=== PATIENT | female | born 1970 | race Caucasian/White ===

== ENCOUNTER 2017-10-03 11:54 | Emergency (ER) | payer BC, SELFPAY ==
[2017-10-03 12:42] VITALS: BP 146/90; PULSE 88; RESP 18; TEMP 37.1; O2SAT 94; BMI 34.0
--- NOTE | 2017-10-03 12:53 | HMH.EDUTC ---
[facility] [place] Disposition Clinical Impression: Upper respiratory infection Qualifiers: URI type: unspecified URI Qualified Code(s): J06.9 - Acute upper respiratory infection, unspecified Disposition: Home, Self-Care Condition on Discharge: Good Instructions: DI for Sinus Headache, Sinus Headache, Cough, DI for Headache, DI for Ear Pain-Adult Additional Instructions: * Monitor Temp. Tylenol and/or Ibuprofen as needed. ER if fever is no less than 101 despite alternating Tylenol and Ibuprofen * Encourage fluids, water, Gatorade, powerade, pedialyte if infant/toddler/or child * Warm salt water gargles for throat irritation *Warm fluids *Sore throat lozenges *Sleep elevated *humidifier or vaporizer Lots of rest Increase fluids, water, Gatorade, powerade *Over the counter Motrin or Tylenol as needed for sinus headache REturn if needed Follow up IMMEDIATELY for new or worsening of symptoms OR no noticeable improvement over the next 48-72 hours. 911 immediately for any life threatening symptoms such as chest pain or difficulty breathing Follow up with family doctor Time of Disposition: 12:59 Medical Decision Making Vital Signs: 10/03/17 12:42 Temperature 98.8 F Temperature Source Temporal Artery Scan Pulse Rate [Left Radial] 88 Respiratory Rate 18 Blood Pressure [Right Arm] 146/90 Blood Pressure Mean [Right Arm] 108 Blood Pressure Source [Right Arm] Automatic Cuff Blood Pressure Position [Right Arm] Sitting 02 Sat by Pulse Oximetry 94 L Oxygen Delivery Method Room Air - [place] Inquiry Pt receiving controlled substance: No [place] was queried for this patient: No [facility] [place] HPI - General Stated complaint: R side of head pain, no ao Mode of Arrival: Ambulatory Source of Information: Patient Limitations: No Limitations Description of Symptoms (Recalled from Triage Doc. by RN): C/O RT EAR AND GOMEZ X2 DAYS ALONG WITH COUGH, CONGESTION, AND CHILLS HEENT Symptoms (Recalled from RN notes): Yes (RT EAR AND GOMEZ) Resp Symptoms (Recalled from RN notes): Yes (COUGH, CONGESTION) Skin Symptoms (Recalled from RN notes): No MS Symptoms (Recalled from RN notes): No Functional Status (Recalled from RN notes): N/A - History of Present Illness Provider Complaint: Patient states that she thinks she may have a URI State that she has been having a headache on the right side and feels like the pain is in her ear and state that she has tenderness in her sinus on the right side State that she feels like it is stopped up. - Related Data Home Medications Medication Instructions Recorded Confirmed Buspirone HCl [Buspar 10mg tablet] 10 mg PO DAILY 10/03/17 10/03/17 Gabapentin [Gabapentin 800mg Tab] 800 mg PO DAILY 10/03/17 10/03/17 Omeprazole [Omeprazole 20mg Tab] 20 mg PO DAILY 10/03/17 10/03/17 Oxycodone HCl/Acetaminophen 10 mg PO Q8HP PRN 10/03/17 10/03/17 [Percocet 10-325 mg Tab] Promethazine HCl [Phenergan 25mg 25 mg PO Q8HP PRN 10/03/17 10/03/17 tab] Sertraline HCl [Zoloft] 100 mg PO DAILY 10/03/17 10/03/17 Allergies Allergy/AdvReac Type Severity Reaction Status Date / Time codeine [CODEINE] Allergy Unknown Unverified 09/11/17 14:51 - Worker's Comp Is this a Worker's Comp case?: No [facility] History I have reviewed the patient's past medical history: Yes Medical History: Reports:: Diabetes Mellitus Type 2 - *Social History Smoking Status: Current every day smoker Tobacco Type: cigarettes Alcohol Intake: never - Psychiatric History Expresses thoughts of harming self/others: None Suicide Plan Description: No Plan ROS Obtained: Yes All systems reviewed & no additional complaints - Constitutional Constitutional: Reports headache(s) - ENT Ears, Nose, Mouth, and Throat: Reports nasal congestion - Respiratory Respiratory: Yes cough Physical Exam - General General appearance: alert, in no apparent distress - Eye Eye exam: Present: normal appearance, PERRL, EOMI - Expanded ENT Exam Nose exam: Pres
--- NOTE | 2017-10-03 12:56 | ED_ITS ---
[facility] [place] Clinical Impression: Upper respiratory infection Qualifiers: URI type: unspecified URI Qualified Code(s): J06.9 - Acute upper respiratory infection, unspecified Disposition: Home, Self-Care Condition on Discharge: Good Instructions: DI for Sinus Headache, Sinus Headache, Cough, DI for Headache, DI for Ear Pain-Adult Additional Instructions: * Monitor Temp. Tylenol and/or Ibuprofen as needed. ER if fever is no less than 101 despite alternating Tylenol and Ibuprofen * Encourage fluids, water, Gatorade, powerade, pedialyte if infant/toddler/or child * Warm salt water gargles for throat irritation *Warm fluids *Sore throat lozenges *Sleep elevated *humidifier or vaporizer Lots of rest Increase fluids, water, Gatorade, powerade *Over the counter Motrin or Tylenol as needed for sinus headache REturn if needed Follow up IMMEDIATELY for new or worsening of symptoms OR no noticeable improvement over the next 48-72 hours. 911 immediately for any life threatening symptoms such as chest pain or difficulty breathing Follow up with family doctor Time of Disposition: 12:59 Medical Decision Making Vital Signs: 10/03/17 12:42 Temperature 98.8 F Temperature Source Temporal Artery Scan Pulse Rate [Left Radial] 88 Respiratory Rate 18 Blood Pressure [Right Arm] 146/90 Blood Pressure Mean [Right Arm] 108 Blood Pressure Source [Right Arm] Automatic Cuff Blood Pressure Position [Right Arm] Sitting 02 Sat by Pulse Oximetry 94 L Oxygen Delivery Method Room Air - [place] Inquiry Pt receiving controlled substance: No [place] was queried for this patient: No [facility] [place] - General Stated complaint: R side of head pain, no ao Mode of Arrival: Ambulatory Source of Information: Patient Limitations: No Limitations Description of Symptoms (Recalled from Triage Doc. by RN): C/O RT EAR AND GOMEZ X2 DAYS ALONG WITH COUGH, CONGESTION, AND CHILLS HEENT Symptoms (Recalled from RN notes): Yes (RT EAR AND GOMEZ) Resp Symptoms (Recalled from RN notes): Yes (COUGH, CONGESTION) Skin Symptoms (Recalled from RN notes): No MS Symptoms (Recalled from RN notes): No Functional Status (Recalled from RN notes): N/A - History of Present Illness Provider Complaint: Patient states that she thinks she may have a URI State that she has been having a headache on the right side and feels like the pain is in her ear and state that she has tenderness in her sinus on the right side State that she feels like it is stopped up. - Related Data Home Medications Medication Instructions Recorded Confirmed Buspirone HCl [Buspar 10mg tablet] 10 mg PO DAILY 10/03/17 10/03/17 Gabapentin [Gabapentin 800mg Tab] 800 mg PO DAILY 10/03/17 10/03/17 Omeprazole [Omeprazole 20mg Tab] 20 mg PO DAILY 10/03/17 10/03/17 Oxycodone HCl/Acetaminophen 10 mg PO Q8HP PRN 10/03/17 10/03/17 [Percocet 10-325 mg Tab] Promethazine HCl [Phenergan 25mg 25 mg PO Q8HP PRN 10/03/17 10/03/17 tab] Sertraline HCl [Zoloft] 100 mg PO DAILY 10/03/17 10/03/17 Allergies Allergy/AdvReac Type Severity Reaction Status Date / Time codeine [CODEINE] Allergy Unknown Unverified 09/11/17 14:51 - Worker's Comp Is this a Worker's Comp case?: No [facility] History I have reviewed the patient's past medical history: Yes Medical History: Reports:: Diabetes Mellitus Type 2 - *Social History
[2017-10-03 13:02] LABS: UTC Influenza A Antigen Negative (Negative); UTC Influenza B Antigen Negative (Negative)
== END 2017-10-03 13:07 | disposition home or self-care (01) ==
PROVIDERS: Emergency Provider Nurse Practitioner; Family Provider Family Medicine
DX: J06.9 Acute upper respiratory infection, unspecified (principal); Z88.6 Allergy status to analgesic agent; F17.210 Nicotine dependence, cigarettes, uncomplicated
CPT/HCPCS: 87804; 96372; 99202

== ENCOUNTER 2023-12-17 16:29 | Emergency (ER) | payer BC, SELFPAY ==
[2023-12-17 17:15] VITALS: BP 122/96; PULSE 90; RESP 19; TEMP 36.6; O2SAT 97; BMI 32.4
--- NOTE | 2023-12-17 17:36 | EXP.UTC ---
Discharge Plan Disposition Patient Disposition: Home, Self-Care Condition: Good Prescriptions Prescriptions: No Action sertraline [Zoloft] 100 MG Tablet 100 mg PO DAILY oxycodone-acetaminophen [Percocet] 1 EACH Tablet 10 mg PO Q8HP PRN (Reason: PAIN) gabapentin 800 MG Tablet 800 mg PO DAILY buspirone 10 MG Tablet 10 mg PO DAILY promethazine 25 MG Tablet 25 mg PO Q8HP PRN (Reason: Nausea And Vomiting) omeprazole 20 MG Tablet.Dr 20 mg PO DAILY Referrals Follow up/Referrals: Marshal Crespo [Primary Care Provider] - See instructions Activity Restrictions/Add. Instructions Additional Instructions/Restrictions: *Monitor Temp, Over the counter Motrin or Tylenol as directed/as needed Tylenol every 4 hours and Motrin every 6 hours (as long as your family doctor has told you that you can take it) for fever or pain. and straight to ER if unable to lower temp less than 101.0 after medication given *Warm salt water gargles may help to soothe the throat *Throat Lozenges? *Warm fluids like tea with honey may help to soothe the throat? *Sleep elevated *Humidifier/Vaporizer Follow up IMMEDIATELY for new or worsening symptoms or no Noticeable improvement over the next 48-72 hours. 911 for difficulty breathing or swallowing You were tested for today for COVID19 your test result should be back in the next 24hours, you may check your results on the [facility] Portal if your COVID/Flu positive you may return to work when fever free for 24hrs without taking any medication Clinical Impressions Clinical Impression: Exposure to COVID-19 virus Instructions Patient Instructions: DI for Nasal Congestion, DI for COVID-19 (Suspected or Confirmed ) Discharge ED Provider: Tana Adam [facility] HPI General Stated complaint: Cough,runny nose,GOMEZ Mode of Arrival: Ambulatory Source of Information: Patient Limitations: No Limitations Time Seen by Provider: 12/17/23 17:36 Description of Symptoms (Recalled from Triage Doc. by RN): PATIENT C/O COUGH, HEADACHE AND RUNNY NOSE. EXPOSED TO COVID HEENT Symptoms (Recalled from RN notes): Yes Resp Symptoms (Recalled from RN notes): Yes Skin Symptoms (Recalled from RN notes): No MS Symptoms (Recalled from RN notes): No Functional Status (Recalled from RN notes): WNL History of Present Illness Provider Complaint: Patient states that she was recently around family member that has tested positive for COVID States that she is now having cough and runny nose wants to get tested for COVID Related Data Home Medications Medication Instructions Recorded Confirmed buspirone 10 mg tablet 10 mg PO DAILY Anxiety 10/03/17 04/15/19 gabapentin 800 mg tablet 800 mg PO DAILY Diabetes 10/03/17 04/15/19 omeprazole 20 mg tablet,delayed 20 mg PO DAILY GERD 10/03/17 04/15/19 release oxycodone-acetaminophen 10 mg-325 10 mg PO Q8HP PRN PAIN 10/03/17 04/15/19 mg tablet (Percocet) promethazine 25 mg tablet 25 mg PO Q8HP PRN Nausea And 10/03/17 04/15/19 Vomiting sertraline 100 mg tablet (Zoloft) 100 mg PO DAILY Depression 10/03/17 04/15/19 Allergies Allergy/AdvReac Type Severity Reaction Status Date / Time codeine [CODEINE] Allergy Unknown Verified 10/25/18 21:52 Worker's Comp Is this a Worker's Comp case?: No [facility] Disclaimer: The information contained in this section may have been updated after the patient was seen, as this information can be updated by other users. Social History Smoking Status: Current every day smoker tobacco type: cigarettes alcohol intake: never current occupational status: employed Travel in the last 8 weeks: None ROS Obtained: Yes All systems reviewed & no additional complaints except as documented and Yes Systems reviewed as appropriate & no additional complaints except as documented Constitutional Constitutional: Reports system reviewed and no additional complaints, except as documented, Reports as per HPI and Reports body ache ENT Ears, Nose, Mouth, and Throat: Reports system reviewed and no additional complaints, except as documented, Reports as per HPI, Reports nasal congestion and Reports nasal discharge Cardiovascular Cardiovascular: Reports system reviewed and no additional complaints, except as documented, Reports as per HPI and Denies chest pain Respiratory Respiratory: Reports system reviewed and no additional complaints, except as documented, Reports as per HPI, Denies shortness of breath and Reports cough Gastrointestinal Gastrointestingal: Reports system reviewed and no additional complaints, except as documented and as per HPI Physical Exam General General appearance: alert and in no apparent distress ENT ENT exam: Present normal exam, normal oropharynx, mucous membranes moist and TM's normal bilaterally Respiratory Respiratory exam: Present normal lung sounds bilaterally; Absent respiratory distress or wheezes Cardiovascular Cardiovascular exam: Present regular rate, normal rhythm and normal heart sounds Neurological Exam Neurological exam: Present alert, oriented X3 and normal gait Medical Decision Making [place] Inquiry Pt receiving controlled substance: No [place] was queried for this patient: No Vital Signs: 12/17/23 17:15 Temperature 97.9 F Temperature Source Oral Pulse Rate [Right Brachial] 90 Respiratory Rate 19 Blood Pressure [Right Arm] 125/100 H Blood Pressure Mean [Right Arm] 108 Blood Pressure Source [Right Arm] Automatic Cuff Blood Pressure Position [Right Arm] Sitting 02 Sat by Pulse Oximetry 97 Oxygen Delivery Method Room Air Orders (Tests/Meds): ORDERS Category Date Time Status Covid-19 Nasal PCR ([facility]) Routine Lab 12/17/23 17:08 Received
[2023-12-17 17:50] VITALS: BP 122/96; PULSE 90; RESP 19; TEMP 36.6; O2SAT 97
== END 2023-12-17 18:06 | disposition home or self-care (01) ==
PROVIDERS: Emergency Provider Nurse Practitioner; PCP Family Medicine
DX: R05.9 Cough, unspecified (principal); R09.81 Nasal congestion; F17.210 Nicotine dependence, cigarettes, uncomplicated; Z20.822 Contact with and (suspected) exposure to COVID-19
CPT/HCPCS: 87635; 99203; 99212; G0463

== ENCOUNTER 2024-02-15 22:45 | Emergency (ER) | payer BC, SELFPAY ==
[2024-02-15 22:48] VITALS: BP 157/93; PULSE 68; RESP 16; TEMP 36.7; O2SAT 100; BMI 30.7
--- NOTE | 2024-02-15 22:53 | ECG_ITS ---
APPROVED REPORT Exam: Resting ECG HR:76 bpm ECG Measurements Heart Rate 76 AXES DE 133 P 140 QRSd 102 QRS 190 QT 424 T 163 QTc 454 Conclusion SINUS RHYTHM ARM LEADS REVERSED [INVERTED P AND QRS IN I] NORMAL ECG Electronically signed by : MAGRARET RAMIREZ, 02/16/2024 04:13:49
--- NOTE | 2024-02-15 22:57 | XR_ITS ---
PROCEDURE INFORMATION: Exam: XR Chest Exam date and time: 02/15/2024 11:16 PM Age: 53 years old Clinical indication: Pain; Other: Chest discomfort TECHNIQUE: Imaging protocol: Radiologic exam of the chest. Views: 2 views. COMPARISON: CR HUMERLT XR humerus LT 10/25/2018 10:03 PM FINDINGS: Lungs: Right mid to lower lung calcified granuloma. No consolidation or edema. Pleural spaces: Normal. No pleural effusion. No pneumothorax. Heart/Mediastinum: Calcified mediastinal lymph node. No cardiomegaly. Bones/joints: Unremarkable. IMPRESSION: No acute findings.
[2024-02-15 23:02] LABS: Basophils % 0.4 % (0.1-2.0); Hemoglobin 13.3 g/dL (12.2-16.2); Lymphocytes # 3.9 K/mm3 (0.7-4.5); Lymphocytes % 45.8 % (10-50); Mean Corpuscular Hemoglobin 28.7 pg (27.0-31.2); Mean Corpuscular Volume 92.4 fl (81-99); Mean Platelet Volume 9.9 fl (7.4-10.4); Monocytes # 0.4 K/mm3 (0.1-1.0); Monocytes % 4.3 % (1.7-9.3); Neutrophils # 4.3 K/mm3 (1.8-7.8); Neutrophils % 49.5 % (37.0-80.0); Platelet Count 174 K/mm3 (142-424); Red Blood Count 4.66 M/mm3 (4.20-5.40); Red Cell Distribution Width 15.9 % (11.5-17.5); White Blood Count 8.6 K/mm3 (4.8-10.8)
[2024-02-15] MEDS: BELLADONNA ALKALOIDS 60 ML ML PO (23:02)
[2024-02-15 23:04] LABS: Chloride 104 mmol/L (98-107); Potassium 3.9 mmoL/L (3.5-5.1); Sodium 138 mmol/L (136-145)
[2024-02-15 23:06] LABS: Alanine Aminotransferase 25 U/L (12-78); Alkaline Phosphatase 93 U/L (38-126); Anion Gap 9.9 mEq/L (5-15); Aspartate Amino Transferase 39 U/L (14-36); Bilirubin,Total 0.3 mg/dl (0.2-1.3); Blood Urea Nitrogen 8 mg/dl (7-17); Carbon Dioxide 28 mmol/L (22.0-30.0); Creatinine Clearance Estimated 120 mL/min (50-200); Estimated Glomerular Filt Rate 76 ml/min (>60); GFR (African American) 92 ML/MIN (>60); Lipase 196 U/L (23-300)
[2024-02-15 23:07] LABS: Albumin Level 4.2 g/dl (3.5-5.0); Albumin/Globulin Ratio 1.3 (1.1-1.8); Calcium 9.7 mg/dl (8.4-10.2); Globulin 3.2 g/dL (1.3-3.2); Glucose 129 mg/dl (74-100); Total Protein,Serum 7.4 g/dl (6.3-8.2)
--- NOTE | 2024-02-15 23:15 | CT_ITS ---
PROCEDURE INFORMATION: Exam: CTA Chest With Contrast Exam date and time: 02/15/2024 11:34 PM Age: 53 years old Clinical indication: Pain; Chest pressure; Additional info: Cp to back TECHNIQUE: Imaging protocol: Computed tomographic angiography of the chest with contrast. Exam focused on the arteries. 3D rendering (Not supervised by radiologist): MIP and/or 3D reconstructed images were created by the technologist. Radiation optimization: All CT scans at this facility use at least one of these dose optimization techniques: automated exposure control; mA and/or kV adjustment per patient size (includes targeted exams where dose is matched to clinical indication); or iterative reconstruction. Contrast material: ISOVUE; Contrast volume: 100 ml; Contrast route: INTRAVENOUS (IV); COMPARISON: CR XR CHEST 2V 02/15/2024 11:16 PM FINDINGS: Pulmonary arteries: Normal. No pulmonary emboli. Aorta: Mild atherosclerotic disease. No aortic aneurysm. No aortic dissection. Lungs: Bilateral upper lobe and bilateral lower lobe calcified granulomas. Mild bilateral dependent atelectasis. Pleural spaces: Unremarkable. No pneumothorax. No pleural effusion. Heart: Unremarkable. No cardiomegaly. No pericardial effusion. Lymph nodes: Large calcified AP window lymph node. Scattered smaller calcified mediastinal and bilateral hilar lymph nodes. No adenopathy. Gallbladder and bile ducts: Status post cholecystectomy. No significant biliary ductal dilitation. Spleen: Calcified granuloma in the spleen. Bones/joints: Unremarkable. No acute fracture. Soft tissues: Unremarkable. IMPRESSION: 1. No evidence of a pulmonary embolism. No thoracic aortic aneurysm or dissection. 2. No acute findings. 3. Prior granulomatous disease.
[2024-02-15 23:16] LABS: NT Pro Brain Natriuretic Pep. < 20.0 pg/mL (0-125)
--- NOTE | 2024-02-15 23:16 | [facility].EDCP ---
Discharge Plan Disposition Patient Disposition: Home, Self-Care Chief Complaint: Chest Pain Prescriptions Prescriptions: No Action sertraline [Zoloft] 100 MG Tablet 100 mg PO DAILY oxycodone-acetaminophen [Percocet] 1 EACH Tablet 10 mg PO Q8HP PRN (Reason: PAIN) gabapentin 800 MG Tablet 800 mg PO DAILY buspirone 10 MG Tablet 10 mg PO DAILY promethazine 25 MG Tablet 25 mg PO Q8HP PRN (Reason: Nausea And Vomiting) omeprazole 20 MG Tablet.Dr 20 mg PO DAILY Referrals Follow up/Referrals: Provider,MD Argelia [Primary Care Provider] - See instructions Melvin Horta MD [Staff Physician] - See instructions Activity Restrictions/Add. Instructions Additional Instructions/Restrictions: At this time it was felt you are safe to be discharged home. If new or worsening symptoms please do not hesitate to return the emergency department. Please call and schedule an appointment with Dr. Horta as soon as you are able. Clinical Impressions Clinical Impression: Chest pain Discharge ED Provider: Froy Reyna [facility] General Chief Complaint: Chest Pain Stated Complaint: cp Time Seen by Provider: 02/15/24 23:10 Mode of Arrival: Family Vehicle Source of Information: Patient Limitations: No Limitations Description of Symptoms (Recalled from ER Triage Doc. by RN): chest discomfort that was present when she woke up. states it increases with the act of breathing. patient states she had this once before, received medication here at the hospital and it improved. patients discomfort. patient denies dyspnea, states she thought it was just indigestion. no diaphoresis. slightly nauseated, denies diarrhea and vomiting. History of Present Illness HPI narrative: Patient is a 53-year-old female past medical history of COPD not on home oxygen, no prior cardiac history presents emergency department for evaluation of chest pain. Onset was acute, occurring this morning, persistent, substernal. There is associated midline thoracolumbar back pain. It is not particularly modifiable. She does have a history of degenerative disc disease and is unsure why her back is hurting however it is worse than it particularly is. No abdominal pain. No cough. No other acute complaints at this time. Related Data Home Medications Medication Instructions Recorded Confirmed buspirone 10 mg tablet 10 mg PO DAILY Anxiety 10/03/17 04/15/19 gabapentin 800 mg tablet 800 mg PO DAILY Diabetes 10/03/17 04/15/19 omeprazole 20 mg tablet,delayed 20 mg PO DAILY GERD 10/03/17 04/15/19 release oxycodone-acetaminophen 10 mg-325 10 mg PO Q8HP PRN PAIN 10/03/17 04/15/19 mg tablet (Percocet) promethazine 25 mg tablet 25 mg PO Q8HP PRN Nausea And 10/03/17 04/15/19 Vomiting sertraline 100 mg tablet (Zoloft) 100 mg PO DAILY Depression 10/03/17 04/15/19 Allergies Allergy/AdvReac Type Severity Reaction Status Date / Time codeine [CODEINE] Allergy Unknown Verified 10/25/18 21:52 [facility] Disclaimer: The information contained in this section may have been updated after the patient was seen, as this information can be updated by other users. Social History Smoking Status: Unknown if ever smoked alcohol intake: never current occupational status: employed Travel in the last 8 weeks: None ROS Obtained: Yes Systems reviewed as appropriate & no additional complaints except as documented Physical Exam General General appearance: alert and in no apparent distress Head Head exam: atraumatic and normocephalic Eye Eye exam: Present PERRL and EOMI ENT ENT exam: Present mucous membranes moist Neck Neck exam: Present normal inspection Chest Chest inspection: Present normal inspection and symmetric chest wall rise Respiratory Respiratory exam: Present normal lung sounds bilaterally; Absent respiratory distress Cardiovascular Cardiovascular exam: Present regular rate and normal rhythm Abdominal Exam Abdominal exam: Present soft; Absent tenderness Extremities Exam Extremities exam: Present normal inspection Neurological Exam Neurological exam: Present alert Psychiatric Psychiatric exam: Present normal affect Skin Skin exam: Present warm and dry HEART Score HEART Score HEART Score assessment performed?: Yes History (anamnesis): Slightly suspicious ECG: Normal Age: 45-65 years Risk factors: 1-2 risk factors Troponin: </= normal limit HEART Score: 2 Critical Care Critical Care Time Critical Care Time: No Medical Decision Making [place] Inquiry Pt receiving controlled substance: No Vital Signs Vital Signs: 02/15/24 22:48 02/16/24 01:42 02/16/24 01:47 Temperature 98.0 F 98 F Temperature Source Oral Oral Pulse Rate 63 80 Pulse Rate [Right Brachial] 68 Respiratory Rate 16 16 Blood Pressure 129/97 H 129/97 H Blood Pressure [Right Arm] 157/93 H Blood Pressure Mean 106 Blood Pressure Mean [Right Arm] 114 Blood Pressure Source [Right Arm] Automatic Cuff Blood Pressure Position Supine Blood Pressure Position [Right Arm] Sitting 02 Sat by Pulse Oximetry 100 98 96 Oxygen Delivery Method Room Air Room Air Room Air Lab Data Labs: Lab Results 02/15/24 22:47: WBC 8.6, RBC 4.66, Hgb 13.3, Hct 43.0, MCV 92.4, MCH 28.7, MCHC 31.0 L, RDW 15.9, Plt Count 174, MPV 9.9, Neut % (Auto) 49.5, Lymph % (Auto) 45.8, [place] % (Auto) 4.3, Eos % (Auto) 0.0 L, Baso % (Auto) 0.4, Neut # (Auto) 4.3, Lymph # (Auto) 3.9, [place] # (Auto) 0.4, Eos # (Auto) 0.0, Baso # (Auto) 0.0, Sodium 138, Potassium 3.9, Chloride 104, Carbon Dioxide 28, Anion Gap 9.9, BUN 8, Creatinine 0.80, Estimated Creat Clear 120, Estimated GFR 76, Est GFR ( Amer) 92, Glucose 129 H, Calcium 9.7, Total Bilirubin 0.3, AST 39 H, ALT 25, Alkaline Phosphatase 93, Troponin I < 0.01, NT-Pro-B Natriuret Pep < 20.0, Total Protein 7.4, Albumin 4.2, Globulin 3.2, Albumin/Globulin Ratio 1.3, Lipase 196 02/16/24 00:25: Troponin I < 0.01 02/15/24 22:47 02/15/24 22:47 Response Orders (Tests/Meds): ED MEDICATIONS Generic Name Dose Route Start Last Admin Trade Name Freq PRN Reason Stop Dose Admin Sodium Chloride 10 ml 02/15/24 23:44 02/15/24 23:44 Sodium Chloride 0.9% 10ml Syr (Rad Only) IV 03/16/24 23:43 10 ml NEEDED PRN Administration Maintain IV Site Discontinued Medications Generic Name Dose Route Start Last Admin Trade Name Freq PRN Reason Stop Dose Admin Acetaminophen 1,000 mg 02/16/24 00:35 02/16/24 00:58 Acetaminophen 1,000mg/100ml Vial IV 02/16/24 00:36 1,000 mg ONCE ONE Administration Aspirin 324 mg 02/16/24 00:35 02/16/24 00:58 Aspirin 81mg Chewable Tablet PO 02/16/24 00:36 324 mg ONCE ONE Administration Belladonna Alkaloids 60 ml 02/15/24 22:59 02/15/24 23:02 Belladonna Alkaloids 60 Ml Ml PO 02/15/24 23:00 60 ml ONCE ONE Administration Iopamidol 100 ml 02/15/24 23:44 02/15/24 23:44 Iopamidol-370 (76%);100ml Bottle IV 02/15/24 23:45 100 ml ONCE ONE Administration Sodium Chloride 50 ml 02/15/24 23:44 02/15/24 23:44 0.9 % Sodium Chloride 50 Ml Vial IV 02/15/24 23:45 50 ml ONCE ONE Administration ORDERS Category Date Time Status CT angio chest - dissection Stat Cat Scan 02/15/24 23:15 Completed XR chest 2V Stat Exams 02/15/24 22:57 Completed Complete Blood Count Auto Diff Stat Lab 02/15/24 22:47 Completed Comprehensive Metabolic Panel Stat Lab 02/15/24 22:47 Completed Lipase Stat Lab 02/15/24 22:47 Completed NT Pro Brain Natriuretic Pep. Stat Lab 02/15/24 22:47 Completed Troponin I Q3H Lab 02/16/24 00:25 Completed Troponin I Q3H Lab 02/16/24 05:00 Ordered Troponin I Stat Lab 02/15/24 22:47 Completed ECG Data Tracing #1: ECG Narrative: Independently interpreted by me, rate of 76, rhythm is regular, no ST elevation in anatomical contiguous leads, QTc 454 MDM Narrative Medical Decision Narrative: In summary patient is a 53-year-old female past medical history described above who presents emergency department for evaluation of chest pain. Patient is hemodynamically stable nontoxic-appearing upon arrival, afebrile. Differential diagnosis includes ACS, acid reflux, noncardiac chest pain, aortic dissection, among others. Workup will be conducted with hematologic labs, chest x-ray, EKG, troponin, CTA chest. Initial interventions include morphine, aspirin. Initial workup reviewed by me, hematologic labs are nonactionable. CTA chest shows no acute pathology, prior granulomatous disease. The patient was placed in observation status at 0100. Medical necessity for observational status is serial troponins. The patient was provided serial reevaluations and cardiac monitoring while awaiting results. Results of testing during observation remarkable for serial undetectably low troponins. Upon repeat evaluation patient continued to be well-appearing. Because of this I feel patient is appropriate for outpatient management at this time will be referred to Dr. Horta for continued evaluation. Total time in observation was 1 hour 27 minutes.
[2024-02-15 23:19] LABS: Troponin I < 0.01 ng/ml (0.00-0.034)
[2024-02-15] MEDS: IOPAMIDOL-370 (76%);100ML BOTTLE 100 ML IV (23:44)
[2024-02-15] MEDS: 0.9 % SODIUM CHLORIDE 50 ML VIAL IV (23:44)
[2024-02-15] MEDS: SODIUM CHLORIDE 0.9% 10ML SYR (RAD ONLY) 10 ML IV (23:44)
[2024-02-16] MEDS: ACETAMINOPHEN 1,000MG/100ML VIAL 1000 MG IV (00:58)
[2024-02-16] MEDS: ASPIRIN 81MG CHEWABLE TABLET 324 MG PO (00:58)
[2024-02-16 01:42] VITALS: BP 129/97; PULSE 63; O2SAT 98
[2024-02-16 01:47] VITALS: BP 129/97; PULSE 80; RESP 16; TEMP 36.6; O2SAT 96
[2024-02-16 01:51] LABS: Troponin I < 0.01 ng/ml (0.00-0.034)
[2024-02-16 02:51] VITALS: BP 142/80; PULSE 78; RESP 19; TEMP 36.8; O2SAT 98
== END 2024-02-16 02:51 | disposition home or self-care (01) ==
PROVIDERS: Emergency Provider Emergency Medicine
DX: R07.9 Chest pain, unspecified (principal); M54.6 Pain in thoracic spine
CPT/HCPCS: 36415; 71046; 71275; 80053; 83690; 83880; 84484; 85025; 93005; 96374; 99285; J0131; Q9967

== ENCOUNTER 2024-03-11 07:42 | Outpatient (CLI) | payer BC, SELFPAY ==
[2024-03-06 10:55] VITALS: BMI 38.7
--- NOTE | 2024-03-11 07:42 | CT_ITS ---
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 A noncontrast coronary calcium scan was performed. A CT attenuation threshold of 130 Hounsfield units (HU) was used for the detection of calcium in contiguous voxels of 1 sq mm in area to be counted as individual lesions. Bolus tracking in the ascending aorta with a threshold of 180 HU was performed. Immediately afterwards, ECG synchronized cardiac CT was then performed from the cardiac base to apex using retrospective gating with ECG tube current modulation. A total of 85 mL of Isovue 370 mg/mL contrast medium was administered at 5 mL/sec followed by a saline flush using a biphasic injection protocol. A tube voltage of 120 KVp was used. The patient received the following medications prior to the cardiac CT. 50 mg of oral metoprolol 15 mg of oral ivabradine 0.8 mg of sublingual nitroglycerin The average heart rate at the time of acquisition was 53 bpm and regular. Image Reconstruction Transaxial images were reconstructed at 0.67 mm slide thickness. Data was reviewed interactively on an advanced workstation capable of 2 and 3-dimensional displays in all conventional reconstruction formats, including multiplanar reformations, maximum intensity projections, curved multiplanar reformations, and volume rendered reconstructions. When applicable, selected routine images describing the relevant coronary anatomy and pathology were saved and sent to PACS. Complications None Technical Quality Overall image quality was good. Coronary artery opacification was adequate. Total DLP (Dose-Length Product) is 1356.1 mGy-cm. The reported value represents the total of one or more individual components during the CT acquisition of this date and at this time, and as such, the same value may appear in more than one CT report depending on the interpreting/reporting physicians. COMPARISON None FINDINGS CT Coronary Calcium Scoring LMA (Left Main Artery) = 101 LAD (Left Anterior Descending) = 0 LCX (Left Coronary Circumflex) = 0 RCA (Right Coronary Artery) = 5 Total Calcium Score = 106 using the AJ-130 method. The observed calcium score of 106 is at 98th percentile for subjects of the same age, sex, and race/ethnicity. The interpretation of the calcium heart score is based on the following continuum*: 0 = no calcified plaque detected (risk of coronary artery disease is very low ??? less than 5%) 1-10 = calcium detected in extremely minimal levels (risk of coronary diseases is still low ??? less than 10%) 11-100 = mild levels of plaque detected with certainty (mild or minimal narrowing of heart arteries is likely) 101-400 = definite,at least moderate levels of plaque detected (relatively high risk of a heart attack within 3-5 years) >401-999 = extensive levels of plaque detected (high risk of heart attack, high levels of vascular disease are present, high likelihood of at least one significant coronary narrowing) *The calcium heart score quantifies the burden of coronary calcification/plaque in the coronary arteries. The calcium heart score is not able to evaluate the presence or burden of non-calcified (i.e. soft) plaque. There is also incidental finding of calcification in the descending thoracic aorta. Coronary CT Angiography The coronary arterial system is right dominant. Quantitative Stenosis Grading: Left Main (LM): The left main originates normally from the left sinus of Valsalva. The LM trifurcates into the left anterior descending artery, ramus intermedius, and left circumflex artery. There is calcified plaque in the proxima and distal l LM segments, with < 25% luminal stenosis. Left Anterior Descending (LAD) and Diagonal Branches: The LAD gives off 2 diagonal branch(es). The LAD and its branches are patent with no evidence of atherosclerosis. There is a mid LAD myocardial bridge present, measuring 1 cm in length 0.2 cm in depth. Ramus-intermedius (RI): The RI is patent. Left Circumflex (LCX) and Obtuse Marginals (OM): The LCX gives off 1 Obtuse Marginal (OM) branch(es). The LCX and its branches are patent with no evidence of atherosclerosis. Right Coronary Artery (RCA): The RCA originates normally from the right sinus of Valsalva. The RCA gives off a posterior descending artery (PDA) and posterolateral (PL) branches. Minimal calcified plaque noted in the proximal RCA, with no evidence of luminal stenosis. Non-Coronary Cardiac Findings: Analysis of the left ventricular (LV) structure and function was performed after 3-D reconstruction of the LV from axial images, with user-corrected automatic contouring for assessment of LV volumes and user-defined reconstruction from oblique planes for measurement of 3-D cardiac structure and function. -The left ventricle systolic function is normal. -There is no left atrial appendage filling defect. Two right pulmonary veins and two left pulmonary veins drain normally into the left atrium. -No pericardial thickening or calcification. -Central and branch pulmonary arteries in the [id number] are unremarkable. -Thoracic aorta within the visualized thoracic aortic-branches in the [id number] is unremarkable. Extracardiac Structures No significant extra-cardiac findings. Note, however, that this study is focused on the cardiac findings. IMPRESSION -Presence of coronary calcification with an Agatston score = 106 using the AJ-130 method. -The observed calcium score of 106 is at 98th percentile for subjects of the same age, sex, and race/ethnicity. -Calcified plaque in the LM segment with < 25% luminal stenosis. No evidence of significant flow-limiting atherosclerosis of the coronary arteries. -CAD-RADS 1. Management recommendations per ACC/AHA guidelines*, as clinically appropriate. -Calcification of the descending thoracic aorta. -Incidental finding of calcified mediastinal lymphadenopathy. Referred to new or recent CT chest for mediastinal non-cardiac findings. *Recommendations: CAD RADS 0: Reassurance. Consider non-atherosclerotic causes of chest pain. CAD RADS 1: Consider non-atherosclerotic causes of chest pain. Consider preventive therapy and risk factor modification. CAD RADS 2: Consider non-atherosclerotic causes of chest pain. Consider preventive therapy and risk factor modification, particularly for patients with nonobstructive plaque in multiple segments. CAD RADS 3: Consider further functional testing. Consider symptom-guided anti-ischemic and preventive pharmacotherapy as well as risk factor modification per published guideline statements. CAD RADS 4A: Consider further functional testing or invasive coronary angiography with revascularization per published guideline statements. Consider symptom-guided anti-ischemic and preventive pharmacotherapy as well as risk factor modification per published guideline statements. CAD RADS 4B: Invasive coronary angiography recommended with revascularization per published guideline statements. Consider symptom-guided anti-ischemic and preventive pharmacotherapy as well as risk factor modification per published guideline statements. CAD RADS 5: Consider invasive angiography and/or viability assessment with revascularization per published guideline statements. Consider symptom-guided anti-ischemic and preventive pharmacotherapy as well as risk factor modification per published guideline statements. CRITICAL RESULT None COMMUNICATION Per this written report The coronary and cardiac findings of this CCTA were reviewed, reported, and signed by Nelson Saleem MD (Skatesman) Conclusion Electronically signed by : Kandice Saleem MD 03/12/2024 12:13:47
[2024-03-11 08:10] VITALS: BP 124/84; PULSE 74; RESP 16; TEMP 36.3; O2SAT 98; BMI 38.7
[2024-03-11] MEDS: METOPROLOL TARTRATE 50MG TABLET PO (08:16)
[2024-03-11] MEDS: IVABRADINE HCL 7.5MG TABLET PO (08:16)
[2024-03-11 09:17] VITALS: BP 136/85; PULSE 66; RESP 16; O2SAT 95
[2024-03-11] MEDS: NITROGLYCERIN 0.4MG SL TABLET SL (09:17)
[2024-03-11 09:20] VITALS: BP 140/91; PULSE 67; RESP 16; O2SAT 94
[2024-03-11 09:23] VITALS: BP 89/61; PULSE 61; RESP 16; O2SAT 93
[2024-03-11 09:26] VITALS: BP 123/64; PULSE 56; RESP 16; O2SAT 93
[2024-03-11] MEDS: IOPAMIDOL-370 (76%);100ML BOTTLE 85 ML IV (09:33)
[2024-03-11] MEDS: 0.9 % SODIUM CHLORIDE 50 ML VIAL IV (09:33)
[2024-03-11] MEDS: SODIUM CHLORIDE 0.9% 10ML SYR (RAD ONLY) 10 ML IV (09:33)
--- NOTE | 2024-03-11 09:33 | CA_ITS ---
APPROVED REPORT EXAM: Comprehensive 2D, Doppler, and color-flow Echocardiogram Sales Support Advisor: Waleska Rivera, RCS, RVS Ht: 5 ft 1 in Wt: 205lbs BSA: 1.91 BP: 125/90 mmHg Indications: Abn EKG, SOB, Cp, Smoker 2D Dimensions IVSd 1.23 cm F: 0.6-1.0 LVEF (Visual) 63.40 % PWd 1.00 cm F: 0.6 - 1.0 LA Volume 42.10 mL LVDd 4.69 cm F: 3.9 - 5.3 LA Volume Index 22.04 mL/m2 (M/F) 16-34 LVDs 3.08 cm F: 2.2 - 3.5 Left Atrium 3.20 cm F: 2.7 - 3.8 M-Mode Dimensions LA Diam 3.92 cm (1.9-4.0) LVDd 5.54 cm (3.5-5.7) LVDs 4.08 cm (3.5-5.7) IVSd 1.11 cm (0.6-1.1) PWd 0.95 cm (0.6-1.1) EF (Teich) 51.00% EPSs 0.25 cm FS 26.40% EDV (Teich) 149.90 mL TAPSE 1.22 (<1.7) ESV (Teich) 73.40 mL LV Diastology E Decel Time 240 (160-240 msec) E/A Ratio 1.17 MED A' 8.90 cm/s LAT A' 6.80 cm/s Aortic Valve PAUL Index 1.70 cm2/m2 AoV Peak Wm. 116.0 (50-130 cm/s) AO Peak GR. 5.40 mmHg AO Mean GR. 2.70 (<5 mmHg) AO VTI 26.4 (18-25 cm) PAUL (VTI) 3.33 (2.5-4.5 cm2) Mitral Valve MV A Velocity 70.0 (40-130 cm/s) E/A Ratio 1.17 Pulmonary Valve PV Peak Velocity 78.0 (50-150 cm/s) Tricuspid Valve TR P. Velocity 243.00 cm/s RAP Estimate 10.00 mmHg RVSP 33.60 mmHg Left Ventricle The left ventricle is normal size. The left ventricular systolic function is normal. The left ventricular ejection fraction is within the normal range. There is increased LV wall thickness. Proximal septal thickening is noted. There is normal LV segmental wall motion. The left ventricular diastolic function is normal. LVEF is 60%. Right Ventricle Right ventricle is mildly dilated. Right ventricle is mildly hypokinetic. Atria The left atrium size is normal. The right atrium size is normal. There is no Doppler evidence of interatrial shunt. Aortic Valve The aortic valve opens well. There is no aortic valvular stenosis. Trace aortic regurgitation. Mitral Valve The mitral valve is normal in structure. No evidence of mitral valve stenosis. Mild mitral regurgitation. Tricuspid Valve The tricuspid valve leaflets are thin and pliable. Mild tricuspid regurgitation. RVSP is 20-25 mmHg. Pulmonic Valve The pulmonary valve is normal in structure. Trace pulmonic regurgitation. Great Vessels The aortic root is normal in size. The ascending aorta is normal in size. IVC is normal in size and collapses >50% with inspiration. Pericardium There is no pericardial effusion. Other Information Study Quality: Fair Conclusion Normal LV systolic function. Mild RV dilation with mild reduction in RV function. Mild MR, mild TR. Electronically signed by : Kandice Saleem MD 03/13/2024 10:42:06
[2024-03-11 09:37] VITALS: BP 106/66; PULSE 65; RESP 16; O2SAT 93
== END 2024-03-11 23:59 | disposition home or self-care (01) ==
LOC: RAD 07:42
PROVIDERS: PCP Family Medicine; Visit Provider Internal Medicine
DX: R94.31 Abnormal electrocardiogram [ECG] [EKG] (principal); R07.9 Chest pain, unspecified; R06.00 Dyspnea, unspecified
CPT/HCPCS: 75574; 93306; Q9967

== ENCOUNTER 2024-04-10 09:32 | Outpatient (CLI) | payer BC, SELFPAY ==
--- NOTE | 2024-04-10 09:48 | MR_ITS ---
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 Software platform sequences were performed using the [employer] MR B19 platform. A set of three-plane, low-resolution, large vljct-oh-zmel localizers were initially acquired. Then axial, coronal, sagittal TrueFISP, as well as axial HASTE images, were obtained. These were followed by gated TrueFISP breathold cinematic sequences obtained in the short axis with 8 mm slices and 2 mm gaps, 2-chamber (vertical long axis), 3-chamber, 4-chamber (horizontal long axis). A bolus of contrast was injected intravenously with first-pass sequences obtained in the short axis and four-chamber planes. After approximately 10 minutes, a TI quality tech sequence was performed to determine the optimal TI time. Using the optimized TI time, delayed contrast enhancement segmented inversion???recovery TurboFLASH sequences were obtained in the short axis, 2-chamber, 3-chamber, and 4-chamber projections. 2D-velocity phase mapping was performed. Functional parameters were calculated by offline analysis on an independent workstation ([employer] Platform, [employer]). Contrast: ProHance??? (Gadoteridol) FINDINGS MORPHOLOGY AND FUNCTION Left ventricle: The left ventricle cavity is small. The indexed left ventricular end-diastolic volume (LVEDVi) is 54 ml/m2 (reference range 57-105 ml/m2 in males, 56-96 ml/m2 in females). Normal left ventricular systolic function is present. There is mild increase in left ventricular wall thickness. Maximum LV wall thickness 11.9 mm. There are no regional wall motion abnormalities noted. LVEF is calculated at 60.6% (reference range 57-77%). Right ventricle: The right ventricle is normal in size. The indexed right ventricular end-diastolic volume (RVEDVi) is 33 ml/m2 (reference range 31-121 ml/m2 in males, 30-112 ml/m2 in females). There is mild reduction in right ventricular systolic function. RVEF is calculated at 43.3% (reference range 52-72% in males, 51-71% in females). Atria: The left atrium is normal in size. The maximum indexed left atrial volume is 28 ml/m2 (reference range 26-52 ml/m2 in males, 27-53 ml/m2 in females). The right atrium is normal in size. The maximum indexed right atrial volume is 18 ml/m2 (reference range 18-90 ml/m2). Aorta: The diameter of the aortic annulus is normal, measuring 23 mm (coronal view reference range 21-30 mm in males, 19-27 mm in females). The diameter of the aortic sinus is normal, measuring 31 mm (coronal view reference range 25-42 mm in males, 24-36 mm in females). The diameter of the sinotubular junction is normal, measuring 27 mm (coronal view reference range 18-32 mm in males, 18-28 mm in females). The diameters of the ascending and descending thoracic aorta are normal. Main pulmonary artery: The main pulmonary artery diameter is normal. Pericardium: The pericardial thickness is normal. The pericardial thickness measures 2.3 mm (normal < 4.0 mm). There is no pericardial effusion. VALVES The valvular morphologies in the visualized sequences appear normal. There is no significant valvular stenosis or regurgitation of the mitral, aortic, tricuspid, or pulmonic valve noted visually. Systolic anterior motion of the mitral valve is not visualized. Ratio of pulmonary to systemic flow, Qp:Qs ratio, could not be performed in the study due to technical difficulty at the time of image acquisition. TISSUE CHARACTERIZATION Resting Perfusion: Normal myocardial blood flow at rest. No evidence of resting hypoperfusion. Myocardial Fibrosis and/or edema: Normal gadolinium kinetics are present. No evidence of late gadolinium enhancement is noted, consistent with absence of myocardial scarring, infarction, or necrosis. T2-weighted imaging demonstrates no evidence of myocardial edema or inflammation. OTHER No other significant findings are noted. However, this exam is focused on the cardiac structure and function. IMPRESSION Small LV cavity size with normal LV systolic function. LVEDVi= 54 ml/m2 and LVEF= 60.6%. Mild increase in LV wall thickness. Maximum LV wall thickness 11.9 mm Normal RV size with mild reduction in RV systolic function. RVEDVi= 33 ml/m2 and RVEF= 43.3%. No atrial enlargement. No CMR evidence of myocardial scarring, infarction, or necrosis. No evidence of myocardial edema or inflammation. Perfusion analysis demonstrates normal blood flow at rest with no evidence of resting hypoperfusion. Overall, this study does not meet CMR criteria for [facility]. Further evaluation, including pulmonary workup, for the mild reduction in RV systolic function is suggested. COMPARISON None CRITICAL RESULT None COMMUNICATION Per this written report The findings of this cardiac MR were reviewed, reported, and signed by Nelson Saleem MD (Lumite Injector). Conclusion Electronically signed by : Kandice Saleem MD 04/22/2024 13:16:02
[2024-04-10 10:58] LABS: Blood Urea Nitrogen 9 mg/dl (7-17); Estimated Glomerular Filt Rate 76 ml/min (>60); GFR (African American) 92 ML/MIN (>60)
[2024-04-10] MEDS: GADOTERIDOL INJ 20ML SYRINGE 20 ML IV (11:11)
[2024-04-10] MEDS: 0.9 % SODIUM CHLORIDE 50 ML VIAL 25 ML IV (11:11)
[2024-04-10] MEDS: SODIUM CHLORIDE 0.9% 10ML SYR (RAD ONLY) 10 ML IV (11:11)
== END 2024-04-10 23:59 | disposition home or self-care (01) ==
PROVIDERS: PCP Family Medicine; Visit Provider Internal Medicine
DX: I51.7 Cardiomegaly (principal); R42 Dizziness and giddiness; R07.9 Chest pain, unspecified; R94.31 Abnormal electrocardiogram [ECG] [EKG]; R06.00 Dyspnea, unspecified
CPT/HCPCS: 36415; 75561; 82565; 84520; A9576

== ENCOUNTER 2024-05-14 13:28 | Outpatient (CLI) | payer BC, SELFPAY ==
--- NOTE | 2024-05-14 13:28 | CA_ITS ---
APPROVED REPORT EXAM: Limited 2D Echocardiogram Advertisement Compositor: Lashawn Pickens RVT Ht: 5 ft 1 in Wt: 203lbs BSA: 1.90 BP: 121/85 mmHg Indications: RT VENTRICULAR DILATION,DECREASED LV FUNCTION,COPD,ESCOBEDO,BUBBLE STUDY Echo Enhancing Agent Indication: Rule out Shunt Agent(s) / Amount(s) Used: Agitated Saline 10 cc Other Information Study Quality: Technically Difficult Conclusion This is a limited TTE to evaluate for interatrial shunt. Limited windows were obtained. Technically difficult study. Agitated saline was administered. Agitated saline administration demonstrates no clear evidence of interatrial shunt at rest, with Valsalva, or following sniff maneuver. Electronically signed by : Kandice Saleem MD 05/15/2024 17:13:50
== END 2024-05-14 23:59 | disposition home or self-care (01) ==
LOC: RT 13:28
PROVIDERS: PCP Family Medicine; Visit Provider Internal Medicine
DX: I51.7 Cardiomegaly (principal); R06.09 Other forms of dyspnea; R07.89 Other chest pain; G47.33 Obstructive sleep apnea (adult) (pediatric)
CPT/HCPCS: 93308

== ENCOUNTER → 2024-07-02 06:23 | Outpatient (CLI) | payer BC, SELFPAY | LOC: SL 06:24 | PROVIDERS: Visit Provider Internal Medicine | DX: G47.33 Obstructive sleep apnea (adult) (pediatric) (principal); G47.36 Sleep related hypoventilation in conditions classified elsewhere | CPT/HCPCS: G0399 ==

== ENCOUNTER 2024-07-31 09:38 | Outpatient (CLI) | payer BC, SELFPAY ==
[2024-07-31 09:58] LABS: Basophils # 0.1 K/mm3 (0-0.2); Basophils % 0.6 % (0.1-2.0); Eosinophils % 0.1 % (0.1-12.0); Hematocrit 43.8 % (37.0-47.0); Hemoglobin 14.7 g/dL (12.2-16.2); Lymphocytes # 2.8 K/mm3 (0.7-4.5); Lymphocytes % 31.9 % (10-50); Mean Corpuscular HGB Conc 33.6 g/dL (31.8-35.4); Mean Corpuscular Hemoglobin 29.6 pg (27.0-31.2); Mean Corpuscular Volume 87.9 fl (81-99); Mean Platelet Volume 9.6 fl (7.4-10.4); Monocytes # 0.5 K/mm3 (0.1-1.0); Monocytes % 5.7 % (1.7-9.3); Neutrophils # 5.3 K/mm3 (1.8-7.8); Neutrophils % 61.6 % (37.0-80.0); Platelet Count 174 K/mm3 (142-424); Red Blood Count 4.98 M/mm3 (4.20-5.40); Red Cell Distribution Width 15.5 % (11.5-17.5); White Blood Count 8.6 K/mm3 (4.8-10.8)
[2024-07-31 10:46] LABS: Albumin Level 4.4 g/dl (3.5-5.0); Chloride 107 mmol/L (98-107)
[2024-07-31 10:47] LABS: Potassium 4.4 mmoL/L (3.5-5.1); Sodium 140 mmol/L (136-145)
[2024-07-31 10:49] LABS: Alanine Aminotransferase 24 U/L (12-78); Anion Gap 12.4 mEq/L (5-15); Aspartate Amino Transferase 37 U/L (14-36); Bilirubin,Unconjugated 0.3 mg/dL (0.0-1.1); Blood Urea Nitrogen 9 mg/dl (7-17); Carbon Dioxide 25 mmol/L (22.0-30.0); Estimated Glomerular Filt Rate 88 ml/min (>60); GFR (African American) 107 ML/MIN (>60)
[2024-07-31 10:50] LABS: Alkaline Phosphatase 96 U/L (38-126); Bilirubin,Direct 0.2 mg/dl (0.0-0.4); Bilirubin,Indirect 0.3 mg/dL (0.0-0.9); Bilirubin,Total 0.5 mg/dl (0.2-1.3); Calcium 9.8 mg/dl (8.4-10.2); Chol/HDL Ratio 3.6 (1-3.5); Cholesterol 154 mg/dl (140-200); Glucose 112 mg/dl (74-100); HDL Cholesterol 43 mg/dl (40-60); Total Protein,Serum 7.1 g/dl (6.3-8.2); Triglycerides 147 mg/dl (30-150); VLDL Cholesterol 29 mg/dL (0-40)
[2024-07-31 11:01] LABS: Direct LDL Cholesterol 88.19 mg/dL (100-129)
[2024-07-31 11:06] LABS: Free T4 (Free Thyroxine) 1.08 ng/dl (0.78-2.19)
[2024-07-31 11:10] VITALS: PULSE 86; PULSE 87
[2024-07-31] MEDS: ALBUTEROL 0.083% 2.5 MG/3 ML NEB IH (11:10)
[2024-07-31 11:20] LABS: Thyroid Stimulating Hormone 0.12 uIU/mL (0.465-4.68)
== END 2024-07-31 23:59 | disposition home or self-care (01) ==
LOC: RT 09:38
PROVIDERS: Internal Medicine; PCP Family Medicine; Visit Provider Specialist
DX: R07.89 Other chest pain (principal); R06.09 Other forms of dyspnea; R42 Dizziness and giddiness; J44.9 Chronic obstructive pulmonary disease, unspecified; G47.33 Obstructive sleep apnea (adult) (pediatric); G47.34 Idiopathic sleep related nonobstructive alveolar hypoventilation; E66.9 Obesity, unspecified; Z68.38 Body mass index [BMI] 38.0-38.9, adult; Z82.49 Family history of ischemic heart disease and other diseases of the circulatory system
CPT/HCPCS: 36415; 80048; 80061; 80076; 83735; 84439; 84443; 85025; 94060; 94618; 94640; 94726; 94729; J7613

== ENCOUNTER 2025-01-22 10:52 | Outpatient (CLI) | payer MEDICAID, SELFPAY ==
--- NOTE | 2025-01-22 11:15 | CA_ITS ---
APPROVED REPORT EXAM: Comprehensive 2D, Doppler, and color-flow Echocardiogram Dogman/Woman: Lashawn Pickens RVT Ht: 5 ft 1 in Wt: 205lbs BSA: 1.91 BP: 136/90 mmHg Indications: DYSPENA,INCREASED LV THICKNESS,ABN EKG,ALVINO,COPD,SMOKER 2D Dimensions IVSd 1.66 cm F: 0.6-1.0 LVEF (Visual) 61.50 % PWd 1.08 cm F: 0.6 - 1.0 LA Volume 22.10 mL LVDd 3.45 cm F: 3.9 - 5.3 LA Volume Index 11.57 mL/m2 (M/F) 16-34 LVDs 2.34 cm F: 2.2 - 3.5 M-Mode Dimensions LA Diam 3.30 cm (1.9-4.0) TAPSE 2.02 (<1.7) LV Diastology E Decel Time 247 (160-240 msec) E/A Ratio 0.7 Aortic Valve PAUL Index 1.90 cm2/m2 AoV Peak Wm. 119.0 (50-130 cm/s) AO Peak GR. 5.70 mmHg AO Mean GR. 3.30 (<5 mmHg) AO VTI 19.3 (18-25 cm) PAUL (VTI) 3.73 (2.5-4.5 cm2) Mitral Valve MV E Max Wm. 68.0 (40-130 cm/s) MV A Velocity 91.0 (40-130 cm/s) E/A Ratio 0.74 MV PHT 72.0 ms Pulmonary Valve PV Peak Velocity 70.0 (50-150 cm/s) Tricuspid Valve TR P. Velocity 245.00 cm/s RAP Estimate 10.00 mmHg RVSP 34.00 mmHg Left Ventricle The left ventricle is normal size. The left ventricular systolic function is normal. The left ventricular ejection fraction is within the normal range. There is increased overall thickness. There is normal LV segmental wall motion. The left ventricular diastolic function is normal. LVEF is 55%. Right Ventricle Right ventricle is borderline dilated. The right ventricular systolic function is mildly reduced. Atria The left atrium size is normal. The right atrium size is normal. There is no Doppler evidence of interatrial shunt. Aortic Valve The aortic valve is mildly thickened. There is no aortic valvular stenosis. No aortic regurgitation is present. Mitral Valve The mitral valve is normal in structure. No evidence of mitral valve stenosis. There is no mitral valve regurgitation noted. Tricuspid Valve Tricuspid valve is grossly normal in structure and function. Trace tricuspid regurgitation. There is insufficient TR jet to estimate RVSP. Pulmonic Valve The pulmonary valve is normal in structure. Trace pulmonic regurgitation. Great Vessels The aortic root is normal in size. IVC is normal in size and collapses >50% with inspiration. Pericardium There is no pericardial effusion. Other Information Study Quality: Fair Conclusion Normal LV systolic function. Borderline RV dilation with mild reduction in RV function. No significant valvular stenosis or regurgitation. Electronically signed by : Kandice Saleem MD 01/27/2025 13:29:20
== END 2025-01-22 23:59 | disposition home or self-care (01) ==
LOC: RT 10:52
PROVIDERS: PCP Family Medicine; Visit Provider Internal Medicine
DX: I51.7 Cardiomegaly (principal); R94.31 Abnormal electrocardiogram [ECG] [EKG]; Z82.49 Family history of ischemic heart disease and other diseases of the circulatory system; R06.09 Other forms of dyspnea
CPT/HCPCS: 93306

== ENCOUNTER 2025-02-17 06:42 | Outpatient (CLI) | payer MEDICAID, SELFPAY ==
--- NOTE | 2025-02-17 | CA_ITS ---
APPROVED REPORT Exam: Pharmacologic Technologist: Sole Rodriguez Ht: 5 ft 1 in Wt: 205 lbs BSA: 1.91 m2 HR: 79 bpm BP: 143/95 mmHg Stress Test Details Test: Exercise stress testing was performed using a Vinicius protocol. HR Resting HR: 79 bpm Max Heart Rate (APMHR): 168.281292 bpm Max HR Achieved: 94 bpm Target HR (85% APMHR): 142.103812 bpm % of APMHR: 55.95 Recovery HR: 90 bpm BP Resting BP: 143.0/95.0 mmHg Max BP: 143.0/95.0 mmHg Recovery BP: 122.0/96.0 mmHg ECG Stress ECG Conclusion Symptoms: Dyspnea, nausea Arrhythmias/Ectopy: - ST-T Changes: Less than [address] depression Conclusion: EKG unremarkable due to Lexiscan infusion. Electronically signed by : Kandice Saleem MD 02/18/2025 23:31:25
--- NOTE | 2025-02-17 07:00 | NM_ITS ---
APPROVED REPORT Exam: Nuclear Stress Test Indication: Chest pain, HTN, DM, High cholesterol, Tobacco use, Family history Patient Location: Outpatient Stress Tech: Sole Rodriguez SD Tech:Tawanna Larose, ARRT, RT (R)(N) Ht: 5 ft 1 in Wt: 195 lbs Bra Size: 42DD HR: 80 bpm BP: 143/95 mmHg BSA: 1.87 m2 TID: 1.11 BMI: 36.8 History: Chest pain, HTN, DM, High cholesterol, Tobacco use, Family history Procedure: Patient received 0.4 mg of intravenous Lexiscan, resting heart rate 80 bpm, resting blood pressure 143/95 mmHg, with Lexiscan maximum heart rate achieved was 95 bpm which is % of the maximum predicted heart rate and blood pressure was 135/92 mmHg. With Lexiscan, patient denied any complaint of chest pain. Cardiac Stress and Resting SPECT Images: Cardiac Stress and Resting SPECT images were obtained using technetium 99m Myoview 30.6 mCi stress and 10.95 mCi at rest. Raw images demonstrate significant soft tissue overlap with the cardiac borders. This may affect the diagnostic interpretation of the study findings. Resting and stress imaging in supine positions demonstrate a large sized, mild, tapered perfusion defect in the inferior LV wall. This is no longer visualized with prone stress imaging. Findings are suggestive of diaphragmatic attenuation. Gated imaging demonstrates normal global and regional LV systolic function. LVEF is calculated at 71%. Conclusion: Diaphragmatic attenuation is present. No evidence of fixed or reversible perfusion defects. Gated imaging demonstrates normal global and regional LV systolic function. LVEF is calculated at 71%. Electronically signed by : Kandice Saleem MD 02/17/2025 11:33:01
[2025-02-17] MEDS: SODIUM CHLORIDE 0.9% 10ML SYR (RAD ONLY) 10 ML IV ×2 (08:41)
[2025-02-17] MEDS: ISOTOPE MYOVIEW (PER STUDY) 1 DOSE IV (08:41)
[2025-02-17] MEDS: REGADENOSON 0.4MG/5ML SYRINGE 0.4 MG IV (08:41)
== END 2025-02-17 23:59 | disposition home or self-care (01) ==
LOC: RAD 06:43
PROVIDERS: PCP Family Medicine; Visit Provider Internal Medicine
DX: I25.10 Atherosclerotic heart disease of native coronary artery without angina pectoris (principal); I10 Essential (primary) hypertension; E11.9 Type 2 diabetes mellitus without complications; E78.00 Pure hypercholesterolemia, unspecified; Z72.0 Tobacco use
CPT/HCPCS: 78452; 93017; 93018; A9502; J2785

== ENCOUNTER 2025-04-26 03:24 | Emergency (ER) | payer MEDICAID, SELFPAY ==
--- OUTSIDE RECORDS SUMMARY | 2021-06-20 09:24 | XMS_ITS | Encounter Summary ---
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 Referral Lab [address] [id number] Dia Santoyo, JOSE [address] [place] [address] Encounter for therapeutic drug level monitoring Social History Tobacco Use Types Packs/Day Years Used Date Smoking Tobacco: Every Day Cigarettes 0.5 16.7 Started: 05/26/2020 Passive Smoke Exposure: Current Smokeless [...] Date Recorded PHQ-2 Total Score 0 12/22/2024 [facility] of Occupat ional Health - Occupational Stress [...] stairs? No 11/17/2024 1:20 PM Alice Velasquez M A Does this person have diffic ulty dressing [...] or on Edge 3 10/26 1:20 PM EST Alice Garcia MA Not Being Able to Stop or [...] Author Blood Pressure < 140/90 Blood Pressure 122/80(2024 1:09 PM EDT) No Marleny Best RMA BMI (Calculated) < 30 General 37.9(04/16/20 1:09 PM EDT) No Marleny Best RMA Eat [...] 5.6 % 06/21/2021 4:37 PM EDT [facility] Est. Avg Glucose 117 mg/dL 06/21/2021 4:37 PM EDT [facility] Blood Venipuncture / Unknown 06/21/2021 9:43 AM EDT 06/21/2021 9:43 AM EDT Narrative [facility] - 06/21/2021 4:37 PM EDT REFERENCE RANGE: Normal: 4.0-5.6% Pre-diabetes: 5.7-6.4% Provisional diagnosis of diabetes: >6.4% Hgb F>10% and anything which shortens red cell survival, such as hemolytic anemia, or unstable hemoglobin variants such as HbSS, HbSC, or HbCC, will lower the HbA1c value associated with a given level of glycemic control. us Dia Santoyo NP CHEMISTRY ORDERABLES F inal Result [facility] [address] [place] [address] , [place] [address] * (ABNORMAL) PROLACTIN LEVEL (06/21/2021 9:43 AM EDT) Prolactin 44.30(H) 4.79 - 23.30 ng/mL 06/21/2021 4:32 PM EDT [facility] Blood Venipuncture / Unknown 06/21/2021 9:43 AM EDT 06/21/2021 9:43 AM EDT Narrative [facility] [employer], [facility] - 06/21/2021 4:32 PM EDT Ingestion of victor m doses of biotin (>5 mg/day) taken within 8 hours of drawing blood sample can interfere with this immunoassay test. Dia Santoyo SUPERVISOR PHOSPHORIC ACID CHEMISTRY ORDERABLES F inal Result Performing Organization Address [facility] Co de Phone Number [facility] [employer] , [place] [address] * TSH REFLEX (06/21/2021 9:43 AM EDT) TSH Reflex 1.610 0.270 - 4.200 mcIU/mL 06/21/2021 4:20 PM EDT [facility] [employer] [facility] Blood Venipuncture / Unknown 06/21/2021 9:43 AM EDT 06/21/2021 9:43 AM EDT Narrative [facility] [employer] [facility] - 06/21/2021 4:20 PM EDT Ingestion of victor m doses of biotin (>5 mg/day) taken within 8 hours of drawing blood sample can interfere with this immunoassay test. Dia Santoyo NP CHEMISTRY ORDERABLES F inal Result Performing Organization Address [facility] Co de Phone Number [facility] [employer] [place] [address] * RENAL FUNCTION PANEL (06/21/2021 9:43 AM EDT) Sodium 140 136 - 145 mmol/L 06/21/2021 4:20 PM EDT [facility] [employer] [facility] Potassium 4.3 3.5 - 5.0 mmol/L 06/21/2021 4:20 PM EDT [facility] Chloride 104 98 - 107 mmol/L 06/21/2021 4:20 PM EDT [facility] Total CO2 25 22 - 29 mmol/L 06/21/2021 4:20 PM EDT [facility] Anion Gap 11 7 - 16 mmol/L 06/21/2021 4:20 PM EDT [facility] Calcium 9.7 8.6 - 10.4 mg/dL 06/21/2021 4:20 PM EDT [facility] Glucose Lvl 95 74 - 100 mg/dL 06/21/2021 4:20 PM EDT [facility] BUN 14 6 - 20 mg/dL 06/21/2021 4:20 PM EDT [facility] Creatinine 0.74 0.51 - 1.30 mg/dL 06/21/2021 4:20 PM EDT [facility] Albumin 4.1 3.5 - 5.2 gm/dL 06/21/2021 4:20 PM EDT [facility] Phosphorus 4.2 2.5 - 4.5 mg/dL 06/21/2021 4:20 PM EDT [facility] GFR Afr Am 111 >=60 mL/min/1.7 3 m2 06/21/2021 4:20 PM EDT [facility] GFR Non Afr Am 96 >=60 mL/min/1.7 3 m2 06/21/2021 4:20 PM EDT [facility] Comment: This estimated GFR was [...] ORDERABLES F inal Result [facility] [address] [facility], [place] [address] [facility] [address] [place] [address] * (ABNORMAL) CBC WITH DIFF [...] 06/21/2021 3:01 PM EDT [facility] Pender Percent 7.5 % 06/21/2021 3:01 PM EDT [facility] Eos Percent 0.0 % 06/21/2021 3:01 PM EDT [facility] Baso Percent 0.0 % 06/21/2021 3:01 PM EDT [facility], [facility] Neut # 2.5 1.6 - 6.1 x10(3)/[facility] 06/21/2021 3:01 PM EDT [facility] Comment:Neutrophils equals s egs plus bands IMMGRAN# 0.0 0.0 - 0.1 x10(3)/[facility] 06/21/2021 3:01 PM EDT [facility] Comment:Automated count of m etamyelocytes, myelocytes and promyelocytes. An absolute IG <0.1 is reported as 0.0. Lymph # 2.1 1.2 - 3.9 x10(3)/[facility] 06/21/2021 3:01 PM EDT [facility] Pender # 0.4 0.3 - 0.9 x10(3)/[facility] 06/21/2021 3:01 PM EDT [facility] Eos# 0.0 0.0 - 0.5 x10(3)/[facility] 06/21/2021 3:01 PM EDT [facility] Baso # 0.0 0.0 - 0.1 x10(3)/[facility] 06/21/2021 3:01 PM EDT [facility], [facility] Blood Venipuncture / Unknown 06/21/2021 9:43 AM EDT 06/21/2021 9:43 AM EDT us Dia Santoyo NP HEMATOLOGY ORDERABLES Final Result [facility] [address] [facility] , [place] [address] * (ABNORMAL) LIPID PANEL REFLEX (06/21/2021 9:43 AM EDT) [facility] Signature Cholesterol 161 <200 mg/dL 06/21/2021 4:20 PM EDT [facility] Comment: < 200 Desirable 200 - 239 Borderline High >= 240 High Triglyceride 196(H) <150 mg/dL 06/21/2021 4:20 PM EDT [facility] Comment: < 150 Normal 150 - 199 Borderline High 200 - 499 High >= 500 Very High HDL 35(L) >=40 mg/dL 06/21/2021 4:20 PM EDT [facility] Comment: > 60 Optimal 40 - 60 Acceptable < 40 Low LDL Calculated 92 <100 mg/dL 06/21/2021 4:20 PM EDT [facility] Non-HDL-C Calculated 126 <=129 mg/dL 06/21/2021 4:20 PM EDT [facility] Comment: <130 Desirable 130-159 Above Desirable 160-189 Borderline High 190-219 High >= 220 Very High Fasting Specimen? Unknown None 021 4:20 PM EDT [facility] Blood Venipuncture / Unknown 06/21/2021 9:43 AM EDT 06/21/2021 9:43 AM EDT us Dia Santoyo SUPERVISOR PHOSPHORIC ACID CHEMISTRY ORDERABLES F inal Result [facility] [address] [facility] , [place] [address] [facility] [address] [place] [address] documented in this encounter Visit Diagnoses Diagnosis Encounter for therapeutic drug level monitoring Encounter for therapeutic drug monitoring documented in this encounter Orders Lab Orders Without Results Count Last Ordered D ate First Ordered Date BASIC METABOLIC PANEL 1 06/20/2021 HEPATIC FUNCTION PANEL 1 06/20/2021 documented in this encounter 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
--- OUTSIDE RECORDS SUMMARY | 2025-03-09 10:05 | XMS_ITS | Encounter Summary ---
Author Organization [place] [address] Care Team Providers Care Quality Analyst Name Role Phone Marshal Crespo DO Primary Care Provider [phone] Reason for Referral * Mammography (Routine) - Pending Review Specialty Diagnoses / Procedures Referred By Jagjit titus Referred To Contact Radiology Diagnoses Screening mammogram for breast cancer Procedures MM MAMMO DIGITAL CLARY SCREEN Marshal Panda DO [address] [place] [address] Phone: tel: fax: Referral ID Status Reason Start Date Expiration Date V isits Requested Visits Authorized [id number] Pending Review 02/11/2025 02/11/2027 1 1 Reason for Visit * Mammography (Routine) - Pending Review Specialty Diagnoses / Procedures Referred By Jagjit titus Referred To Contact Radiology Diagnoses Screening mammogram for breast cancer Procedures MM MAMMO DIGITAL CLARY SCREEN Marshal Panda DO [address] [place] [address] Phone: tel: fax: Referral ID Status Reason Start Date Expiration Date V isits Requested Visits Authorized [id number] Pending Review 02/11/2025 02/11/2027 1 1 Encounter Details Date Type Department Care Team (Late st Contact Info) Description 03/09/2025 10:05 AM EDT - 03/09/2025 11:59 PM EDT Hospital Encounter [facility] [address] [place] [address] Marshal Crespo DO [address] [place] [phone] Screening mammogram for breast cancer Discharge Disposition: Home or Self Care Social History Tobacco Use Types Packs/Day Years Used Date Smoking Tobacco: Every Day Cigarettes 0.5 16.7 Started: 05/26/2020 Smokeless Tobacco: Never Comments:orig started 8, started again 10/12, quit 12/12 Alcohol Use Standard Drinks/Week Comments Not Currently 0 (1 standard drink = 0.6 oz pur e alcohol) social; quit Overall Financial Resource Strain (CARDIA) Answe r Date Recorded How hard is it for you to pa y for the very basics like food, housing, medical care, and heating? Not hard at all 05/25/2020 PHQ-2 Answer Date Recorded PHQ-2 Total Score 0 12/22/2024 [facility] - Occupational Stress [...] on file Sexual Orientation Not on file documented as of this encounter Functional Status * Is the person deaf or does he/she have serious difficulty hearing? Answer Date of Assessment Author No 11/17/2024 1:20 PM Alice Velasquez MA * Is the person blind or does he/she have serious difficulty seeing even when wearing glasses? Answer Date of Assessment Author No 11/17/2024 1:20 PM Alice Velasquez MA * Does this person have serious difficulty walking or climbing stairs? Answer Date of Assessment Author No 11/17/2024 1:20 PM Alice Velasquez MA * Does this person have difficulty dressing or bathing? Answer Date of Assessment Author No 11/17/2024 1:20 PM Alice Velasquez MA * Because of a physical, mental or emotional condition, does this person have difficulty doing errands alone such as visiting a doctor's office or shopping? Answer Date of Assessment Author No 11/17/2024 1:20 PM Alice Velasquez MA documented as of this encounter Mental Status * Because of a physical, mental or emotional condition, does this person have serious difficulty concentrating, remembering or making decisions? Answer Entry Date Author No 11/17/2024 1:20 PM Alice Velasquez MA documented in this encounter Medications at Time of Discharge amLODIPine (NORVASC) 2.5 mg Oral Tablet Take 1 Tablet by mouth once daily. 30 Tablet 03/02/2025 aspirin 81 mg Oral Tablet, Delayed Release (E.C.) Take 1 Tablet by mouth daily. 30 Tablet 11 02/29/2024 BREZTRI AEROSPHERE 160-9-4.8 mcg/actuation Inhl HFA Aerosol Inhaler Inhale 2 Puffs into the lungs 2 times daily. 10.7 g 3 03/14/2023 Brompheniramine-Pse udoeph-DM 2-30-10 mg/5 mL Oral SyrupIndications:Ac nisqually bacterial sinusitis Take 10 mL by mouth every 4 hours as needed. 240 mL 03/04/2025 busPIRone (BUSPAR) 5 mg Oral Tablet Take 5 mg by mouth 3 times daily. 02/11/2024 desvenlafaxine succinate (PRISTIQ) 100 mg Oral Tablet Sustained Release 24 hr 12/25/2022 diclofenac (VOLTAREN) 75 mg Oral Tablet, Delayed Release (E.C.)Indications:C ervicalgia Take 1 Tablet by mouth 2 times daily with meals as needed. 60 Tablet 04/11/2023 doxepin (SINEQUAN) 25 mg Oral Capsule Take 25 mg by mouth nightly. at bedtime 05/30/2023 gabapentin (NEURONTIN) 800 mg Oral TabletIndications:G eneralized osteoarthritis of multiple sites,Type 2 diabetes mellitus with peripheral neuropathy (HCC) Take 1 Tablet by mouth 3 times daily. 90 Tablet 2 12/22/2024 hydrOXYzine (VISTARIL) 25 mg Oral Capsule TAKE 2 CAPSULES BY MOUTH AT BEDTIME AND 1 CAPSULE BY MOUTH DAILY NEEDED FOR ANXIETY. 02/05/2024 methocarbamoL (ROBAXIN) 500 mg Oral Tablet Take 2 Tablets by mouth 3 times daily as needed for muscle spasms. 120 Tablet 2 11/28/2024 pravastatin (PRAVACHOL) 40 mg Oral Tablet Take 1 Tablet by mouth every evening. 100 Tablet 2 03/02/2025 prazosin (MINIPRESS) 1 mg Oral Capsule Take 1 mg by mouth nightly. promethazine (PHENERGAN) 25 mg Oral Tablet Take 1 Tablet by mouth every 6 hours as needed for Nausea. 30 Tablet 2 02/06/2025 REXULTI 2 mg Oral 12/29/2022 risperiDONE (RISPERDAL) 2 mg Oral Tablet Take 2 mg by mouth nightly. 06/11/2021 SYMBICORT 160-4.5 mcg/actuation Inhl HFA Aerosol Inhaler Inhale 2 Puffs into the lungs 2 times daily. 10/02/2024 varenicline tartrate (CHANTIX) 1 mg Oral TabletIndications:T obacco abuse Take 1 Tablet by mouth 2 times daily 56 Tablet 2 03/02/2025 AIMOVIG AUTOINJECTOR 140 mg/mL SubQ Auto-InjectorIndica tions:History of migraine Inject 1 ml under the skin once every 30 days. 1 mL 5 09/11/2024 04/02/20 25 dicyclomine (BENTYL) 20 mg Oral Tablet Take 1 Tablet by mouth 3 times daily as needed. 90 Tablet 2 11/28/2024 04/23/20 25 fUROsemide (LASIX) 20 mg Oral Tablet Take 1 Tablet by mouth daily as needed. 100 Tablet 2 06/11/2024 04/23/20 25 LEVOthyroxine (SYNTHROID) 75 mcg Oral Tablet Take 1 Tablet by mouth daily. Must make appointment for further refill 90 Tablet 3 09/25/2024 04/16/20 25 loratadine (CLARITIN) 10 mg Oral Tablet Take 1 Tablet by mouth daily. 30 Tablet 3 12/18/2024 04/23/20 25 omeprazole (PRILOSEC) 40 mg Oral Capsule, Delayed Release(E.C.)Indica tions:Gastroesophag eal reflux disease with esophagitis, unspecified whether hemorrhage Take 1 Capsule by mouth once daily. 100 Capsule 2 06/11/2024 04/23/20 25 VENTOLIN HFA 90 mcg/actuation Inhl HFA Aerosol Inhaler Inhale 2 Puffs into the lungs every 6 hours as needed for wheezing. 18 g 03/02/2025 04/02/20 25 documented as of this encounter Discharge Disposition Disposition Code Departure Means Destination Home or Self Care documented in this encounter Plan of Treatment [...] Poonam Strong RMA Stay Tobacco Free Lifestyle Poonam Weber RMA HEMOGLOBIN A1C < 7.0 Result Component 5.5( 1:29 PM EDT) No Marleny Best RMA documented as of this encounter Procedures Procedure Name Priority Date/Time Associated Diagnosis Comments MM MAMMO DIGITAL CLARY SCREEN BILAT Routine 03/09/2025 10:17 AM EDT Screening mammogram for breast cancer documented in this encounter Results * MM MAMMO DIGITAL CLARY SCREEN BILAT (03/09/2025 10:17 AM EDT) Anatomical Region Laterality Modality Breast Bilateral Mammography 03/09/2025 10:1 7 AM EDT Impressions 03/10/2025 8:08 AM EDT Negative ([id number]) RECOMMENDATION: Routine Screening Mammogram in 1 Year Bilateral . . COMMENTS: DISCLAIMER *The patient was notified by MyChart or mail of the results for this examination. *The patient's information was entered into a reminder system with a target due date for the next breast imaging, in accordance with the [employer] and the Society of Breast Imaging recommendations. *Breast Imaging has a false negative rate of 15%. *Any patient with a palpable abnormality, unexplained by breast imaging, should be managed on a clinical basis by the attending physician. Narrative 03/10/2025 8:08 AM EDT EXAM: MM MAMMO DIGITAL CLARY SCREEN BILAT EXAM DATE: 03/09/2025 10:17 AM INDICATION: Z12.31-Encounter for screening mammogram for malignant neoplasm of [id number] COMPARISON STUDIES: Compared with prior studies the most recent being 03/10/2024 MM MAMMO DIGITAL CLARY SCREEN BILAT at [facility] 07/18/2021 MM MAMMO DIGITAL CLARY SCREEN BILAT at [facility] 07/01/2020 MM MAMMO DIGITAL SCREENING W CAD BILAT at [facility] TISSUE DENSITY: There are scattered areas of fibroglandular density. FINDINGS: No mammographic evidence of malignancy. Procedure Note Mina Tohmas MD - 03/10/2025 EXAM: MM MAMMO DIGITAL CLARY SCREEN BILAT EXAM DATE: 03/09/2025 10:17 AM INDICATION: Z12.31-Encounter for screening mammogram for malignantneoplasm of [id number] COMPARISON STUDIES: Compared with prior studies the most recent being 03/10/2024 MM MAMMO DIGITAL CLARY SCREEN BILAT at [facility] 07/18/2021 MM MAMMO DIGITAL CLARY SCREEN BILAT at [facility] 07/01/2020 MM MAMMO DIGITAL SCREENING W CAD BILAT at [facility] TISSUE DENSITY: There are scattered areas of fibroglandular density. FINDINGS: No mammographic evidence of malignancy. IMPRESSION: Negative ([id number]) RECOMMENDATION: Routine Screening Mammogram in 1 Year Bilateral . . COMMENTS: DISCLAIMER *The patient was notified by MyChart or mail of the results for this examination. *The patient's information was entered into a reminder system with atarget due date for the next breast imaging, in accordance with the [employer] and the Society of Breast Imaging recommendations. *Breast Imaging has a false negative rate of 15%. *Any patient with a palpable abnormality, unexplained by breast imaging,should be managed on a clinical basis by the attending physician. Marshal Crespo DO IM MAMMOGRAPHY ORDERABLES Dair l Result documented in this encounter Visit Diagnoses Diagnosis Screening mammogram for breast cancer documented in this encounter Care Teams Quality Analyst Relationship Specialty Start Date End Date Marshal Crespo DO [address] [place] [address] PCP - General 07/02/10 documented as of this encounter
--- OUTSIDE RECORDS SUMMARY | 2025-04-16 13:15 | XMS_ITS | Encounter Summary ---
Author Organization [place] [address] Care Team Providers Care Helper Chicken Farm Name Role Phone ZakMarshal gomez Primary Care Provider [phone] Reason for Visit * Reason Comments Annual Exam Diabetes Depression Encounter Details Date Type Department Care Team (Late st Contact Info) Description 04/16/2025 1:15 PM EDT Office Visit SEP [facility] [address] [place] [address] ZakMarshal gomez DO [address] [place] [address] Annual physical exam (Primary Dx); [...] Date Recorded PHQ-2 Total Score 0 12/22/2024 [employer] [place] [facility] Occupat ional Health - Occupational Stress [...] nerve repair; Surgeon: Everette Seth MD; Location: [facility]; Service: Hand HYSTERECTOMY SKIN GRAFT Left 10/13/2021 LEFT SMALL FINGER TISSUE REARRANGEMENT ; Surgeon: Everette Seth MD; Location: [facility]; Service: Orthopedics AIME AND BSO Allergies Allergen [...] the lungs 2times daily. 10.7 g 3 Qsttmewecimxufk-Mitsefupt-PX 2-30-10 mg/5 mL Oral Syrup Take 10 [...] 60 min Stress: Stress Concern Present (12/15/2020) [employer] [place] [facility] - Occupational Stress Questionnaire [...] 148 <200 mg/dL 04/16/2025 11:57 PM EDT [facility] Comment: < 200 Desirable 200 - 239 Borderline High >= 240 High Triglyceride 173(H) <150 mg/dL 04/16/2025 11:57 PM EDT [facility] Comment: < 150 Normal 150 - 199 Borderline High 200 - 499 High >= 500 Very High HDL 33(L) >=40 mg/dL 04/16/2025 11:57 PM EDT [facility] Comment: > 60 Optimal 40 - 60 Acceptable < 40 Low LDL Calculated 85 <100 mg/dL 04/16/2025 11:57 PM EDT [facility] Comment: < 100 Optimal 100 - 129 [...] lt [facility] [address] [facility] [facility] , [address] [place] [id number] * (ABNORMAL) BASIC METABOLIC PANEL (04/16/2025 1:29 [...] recommended by the National Kidney Foundation - [place] [employer] of Nephrology Task Force. Blood VENOUS BLOOD / Unknown Venipuncture / Unknown 04/16/2025 1:29 PM EDT 04/16/2025 1:29 PM EDT us Marshal Zak DO CHEMISTRY ORDERABLES Final Resu lt [facility], [facility] [address] [facility] , [place] [address] * (ABNORMAL) HEPATIC FUNCTION PANEL (04/16/2025 1:29 [...] ORDERABLES Final Resu lt Performing Organization Address City/[facility]/ZIP Co de Phone Number [facility] [address] [facility] , [place] [address] * HEMOGLOBIN A1C (04/16/2025 1:29 PM EDT) [facility] Hgb A1C 5.5 4.2 - 5.6 % 04/16/2025 9:00 PM EDT [facility] Est. Avg Glucose 111 mg/dL 04/16/2025 9:00 PM EDT [facility] Blood VENOUS BLOOD / Unknown Venipuncture / Unknown 04/16/2025 1:29 PM EDT 04/16/2025 1:29 PM EDT Narrative [facility] - 04/16/2025 9:00 PM EDT REFERENCE RANGE: Normal: 4.0-5.6% Pre-diabetes: 5.7-6.4% Provisional diagnosis of diabetes: >6.4% Hgb F>10% and anything which shortens red cell survival, such as hemolytic anemia, or unstable hemoglobin variants such as HbSS, HbSC, or HbCC, will lower the HbA1c value associated with a given level of glycemic control. Marshal Crespo DO CHEMISTRY ORDERABLES Final Resu lt [facility] [address], [facility] [address] [facility] , [place], [place] [id number] * CBC (04/16/2025 1:29 PM EDT) [facility] WBC 7.7 3.7 - 10.3 x10(3)/mcL 04/16/2025 8:39 PM EDT [facility] RBC 4.75 3.90 - 5.20 x10(6)/mcL 04/16/2025 8:39 PM EDT [facility] Hgb 14.2 11.2 - 15.7 g/dL 04/16/2025 8:39 PM EDT [facility] Hct 44.0 34.0 - 45.0 % 04/16/2025 8:39 PM EDT [facility] MCV 92.6 80.0 - 100.0 fL 04/16/2025 8:39 PM EDT [facility] MCH 29.9 26.0 - 34.0 pg 04/16/2025 8:39 PM EDT [facility] MCHC 32.3 30.7 - 35.5 g/dL 04/16/2025 8:39 PM EDT [facility] RDW 13.1 <=14.9 % 04/16/2025 8:39 PM EDT [facility] Platelet 221 155 - 369 x10(3)/mcL 04/16/2025 8:39 PM EDT [facility] MPV 12.3 8.8 - 12.5 fL 04/16/2025 8:39 PM EDT [facility] Blood VENOUS BLOOD / Unknown Venipuncture / Unknown 04/16/2025 1:29 PM EDT 04/16/2025 1:29 PM EDT [facility] Solutions[facility] DO HEMATOLOGY ORDERABLES Final Res ult Performing Organization Address City/[facility]/ZIP Co de Phone Number [facility] [address] [facility] , [place] [address] * T4, FREE (THYROXINE) (04/16/2025 1:29 PM EDT) [facility] Free T4 1.29 0.80 - 1.80 ng/dL 04/17/2025 12:01 AM EDT [facility] Blood VENOUS BLOOD / Unknown Venipuncture / Unknown 04/16/2025 1:29 PM EDT 04/16/2025 1:29 PM EDT Narrative [facility] - 04/17/2025 12:01 AM EDT Ingestion of victor m doses of biotin (>5 mg/day) taken within 8 hours of drawing blood sample can interfere with this immunoassay test. [facility] DO CHEMISTRY ORDERABLES Final Resu lt Performing Organization Address City/[facility]/ZIP Co de Phone Number [facility] [address] [facility] , [place] [address] * (ABNORMAL) THYROID STIMULATING HORMONE (04/16/2025 1:29 PM EDT) TSH 0.171(L) 0.270 - 4.200 mcIU/mL 04/17/2025 12:01 AM EDT [facility] Blood VENOUS BLOOD / Unknown Venipuncture / Unknown 04/16/2025 1:29 PM EDT 04/16/2025 1:29 PM EDT Narrative [facility] - 04/17/2025 12:01 AM EDT Ingestion of victor m doses of biotin (>5 mg/day) taken within 8 hours of drawing blood sample can interfere with this immunoassay test. Marshal Zak CASTELLANO CHEMISTRY ORDERABLES Final Resu lt [facility] [address] [facility] , [place] [address] documented in this encounter Visit [...] 04/16/2025 documented in this encounter Care Teams Helper [employer] Relationship Specialty Start Date End Date Marshal Crespo DO [address] [place] [id number] PCP - General 07/02/10 documented as of this encounter
[2025-04-26 03:32] VITALS: BP 142/97; PULSE 74; RESP 14; TEMP 36.6; O2SAT 96; BMI 37.8
--- OUTSIDE RECORDS SUMMARY | 2025-04-26 03:36 | XMS_ITS | Encounter Summary ---
Author Organization [place] [address] Care Team Providers Care Fortune Cookie Maker Name Role Phone Marshal Crespo DO Primary Care Provider [phone] Encounter Details Date Type Department Care Team (Late st Contact Info) Description 04/17/2025 Results Follow-Up [facility]P [facility] [address] [place] [address] ZakMarshal piña, [address] [place], [place] [id number] LIPID SCREEN, THYROID STIMULATING HORMONE, T4, FREE (THYROXINE), Additional followed-up results: 4 Social History Tobacco Use Types Packs/Day Years [...] Date Recorded PHQ-2 Total Score 0 12/22/2024 [facility] [place] of Occupat ional Health - Occupational Stress [...] Alice Velasquez MA documented in this encounter Plan of Treatment [...] Best RMA documented as of this encounter Visit Diagnoses Not on filedocumented in this encounter Care Teams Fortune Cookie Maker Relationship Specialty Start Date End Date Marshal Crespo DO [address] [place] [address] PCP - General 07/02/10 documented as of this encounter
--- OUTSIDE RECORDS SUMMARY | 2025-04-26 03:36 | XMS_ITS | Encounter Summary ---
Author Organization [place] [place] [address] Care Team Providers Care Wall Man Name Role Phone aZkMarshal Primary Care Provider [phone] Reason for Visit * Reason Comments Medication Refill Encounter Details Date Type Department Care Team (Late st Contact Info) Description 04/22/2025 Refill SEP [facility] 100 [place] [address] Zak, DO Marshal [address] [place] [address] Medication Refill Social History Tobacco Use Types Packs/Day Years [...] Date Recorded PHQ-2 Total Score 0 12/22/2024 [facility] [place] of Occupat ional Health - Occupational Stress [...] Entry Date Author No 11/17/2024 1:20 PM SYLVIA Garcia Alice RJ documented in this encounter Ordered Prescriptions Prescription Sig Dispense Quantity Refills Last Filled Start Date End Date SUMAtriptan (IMITREX) 100 mg Oral Tablet Take 1 Tablet by mouth at onset of migraine. MAY REPEAT in 2 hours if needed. 9 Tablet 2 04/23/2025 dicyclomine (BENTYL) 20 mg Oral Tablet Take 1 Tablet by mouth 3 times daily as needed. 90 Tablet 2 04/23/2025 loratadine (CLARITIN) 10 mg Oral Tablet Take 1 Tablet by mouth daily. 30 Tablet 3 04/23/2025 folic acid (FOLVITE) 1 mg Oral Tablet Take 1 Tablet by mouth daily. 30 Tablet 04/23/2025 fUROsemide (LASIX) 20 mg Oral Tablet Take 1 Tablet by mouth daily as needed. 30 Tablet 04/23/2025 omeprazole (PRILOSEC) 40 mg Oral Capsule, Delayed Release(E.C.)Indic ations:Gastroesoph ageal reflux disease with esophagitis, unspecified whether hemorrhage Take 1 Capsule by mouth once daily. 30 Capsule 04/23/2025 documented in this encounter Miscellaneous Notes * Telephone Encounter - Johnny Devine CPhT - 04/23/2025 2:34 PM EDT Omeprazole Future Visit: N/A Last Assessed Visit: N/A Follow-Up: N/A Appointment protocol failed. One lizbeth supply sent to pharmacy. Routed to Office. Furosemide Future Visit: N/A Last Assessed Visit: N/A Follow-Up: N/A Appointment protocol failed. One lizbeth supply sent to pharmacy. Routed to Office. Folic acid Future Visit: N/A Last Assessed Visit: N/A Follow-Up: N/A Appointment protocol failed. One lizbeth supply sent to pharmacy. Routed to Office. Loratadine There is no CRS protocol for this medication. bentyl There is no CRS protocol for this medication. Sumatriptan There is no CRS protocol for this medication. documented in this encounter Plan of Treatment [...] documented as of this encounter Visit Diagnoses Diagnosis Gastroesophageal reflux disease with esophagitis, unspecified whether hemorrhage documented in this encounter Discontinued Medications Medication Sig Discontinue Reason Start Date End Da te omeprazole (PRILOSEC) 40 mg Oral Capsule, Delayed Release(E.C.)Indications :Gastroesophageal reflux disease with esophagitis, unspecified whether hemorrhage Take 1 Capsule by mouth once daily. 06/11/2024 04/23/2025 fUROsemide (LASIX) 20 mg Oral Tablet Take 1 Tablet by mouth daily as needed. 06/11/2024 04/23/2025 dicyclomine (BENTYL) 20 mg Oral Tablet Take 1 Tablet by mouth 3 times daily as needed. 11/28/2024 04/23/2025 loratadine (CLARITIN) 10 mg Oral Tablet Take 1 Tablet by mouth daily. 12/18/2024 04/23/2025 SUMAtriptan (IMITREX) 100 mg Oral Tablet Take 1 Tablet by mouth at onset of migraine. MAY REPEAT in 2 hours if needed. 03/16/2025 04/23/2025 documented as of this encounter Care Teams Wall Man Relationship Specialty Start Date End Date Marshal Crespo DO [address] [place] [address] PCP - General 07/02/10 documented as of this encounter
--- OUTSIDE RECORDS SUMMARY | 2025-04-26 03:36 | XMS_ITS | Encounter Summary ---
Author Organization [place] [address] Care Team Providers Care Icing Mixer Name Role Phone ZakEarlenrique CASTELLANO Primary Care Provider [phone] Reason for Visit * Reason Comments Medication Refill Encounter Details Date Type Department Care Team (Late st Contact Info) Description 03/31/2025 Refill [facility]P [facility] 100 [place] [address] Zak DO Marshal [address] [place] [address] Medication Refill Social History Tobacco [...] Date Recorded PHQ-2 Total Score 0 12/22/2024 [facility] [place] of Occupat ional Health - Occupational Stress [...] Refills Last Filled Start Date End Date VENTOLIN HFA 90 mcg/actuation Inhl HFA Aerosol Inhaler Inhale 2 Puffs into the lungs every 6 hours as needed for wheezing. 18 g 04/02/2025 AIMOVIG AUTOINJECTOR 140 mg/mL SubQ Auto-InjectorIndica tions:History of migraine Inject 1 ml under the skin once every 30 days. 1 mL 5 04/02/2025 documented in this encounter Miscellaneous Notes * Telephone Encounter - Johnny Devine CPhT - 04/02/2025 8:26 AM EDT Amovig There is no CRS protocol for this medication. Ventolin Future Visit: N/A Last Assessed Visit: N/A Follow-Up: N/A Appointment protocol failed. No lizbeth supply sent to pharmacy. Routed to Office. documented in this encounter Plan of Treatment [...] as of this encounter Visit Diagnoses Diagnosis History of migraine Personal history of other disorders of nervous system and sense organs documented in this encounter Discontinued Medications Medication Sig Discontinue Reason Start Date End Da te AIMOVIG AUTOINJECTOR 140 mg/mL SubQ Auto-InjectorIndications: History of migraine Inject 1 ml under the skin once every 30 days. 09/11/2024 04/02/2025 VENTOLIN HFA 90 mcg/actuation Inhl HFA Aerosol Inhaler Inhale 2 Puffs into the lungs every 6 hours as needed for wheezing. 03/02/2025 04/02/2025 documented as of this encounter Care Teams Icing Mixer Relationship Specialty Start Date End Date Marshal Crespo DO [address] [place] [address] PCP - General 07/02/10 documented as of this encounter
--- OUTSIDE RECORDS SUMMARY | 2025-04-26 03:36 | XMS_ITS | Encounter Summary ---
Author Organization [place] [address] Care Team Providers Care Multimedia Producer Name Role Phone ZakEarlenrique CASTELLANO Primary Care Provider Reason for Visit * Reason Comments Medication Refill Encounter Details Date Type Department Care Team (Late st Contact Info) Description 02/28/2025 Refill [facility]P [facility] [address] [place] [address] Zak DO Marshal [address] [place] [address] Medication Refill Social History Tobacco [...] Date Recorded PHQ-2 Total Score 0 12/22/2024 [facility] of Occupat ional Health - Occupational Stress [...] Refills Last Filled Start Date End Date pravastatin (PRAVACHOL) 40 mg Oral Tablet Take 1 Tablet by mouth every evening. 100 Tablet 2 03/02/2025 varenicline tartrate (CHANTIX) 1 mg Oral TabletIndications: Tobacco abuse Take 1 Tablet by mouth 2 times daily 56 Tablet 2 03/02/2025 amLODIPine (NORVASC) 2.5 mg Oral Tablet Take 1 Tablet by mouth once daily. 30 Tablet 03/02/2025 VENTOLIN HFA 90 mcg/actuation Inhl HFA Aerosol Inhaler Inhale 2 Puffs into the lungs every 6 hours as needed for wheezing. 18 g 03/02/2025 04/02/2025 documented in this encounter Miscellaneous Notes * Telephone Encounter - Kaur Perez CPhT - 03/02/2025 9:15 AM EDT amlodipine - Future Visit: NA Last Assessed Visit: NA Follow-Up Date: NA Appointment protocol failed. No lizbeth supply sent to pharmacy. Routed to Office. pravastatin - Future Visit: NA Last Assessed Visit: 12/22/2024 Follow-Up Date: 12/22/2025 All protocols passed. Refills approved and sent to requesting pharmacy. Routed to [facility] if applicable. varenicline - There is no CRS protocol for this medication. ventolin - Future Visit: NA Last Assessed Visit: NA Follow-Up Date: NA Appointment protocol failed. One lizbeth supply sent [...] as of this encounter Visit Diagnoses Diagnosis Tobacco abuse Tobacco use disorder documented in this encounter Discontinued Medications Medication Sig Discontinue Reason Start Date End Da te pravastatin (PRAVACHOL) 40 mg Oral Tablet Take 1 Tablet by mouth every evening. 05/19/2024 03/02/2025 VENTOLIN HFA 90 mcg/actuation Inhl HFA Aerosol Inhaler Inhale 2 Puffs into the lungs every 6 hours as needed for wheezing. 12/18/2024 03/02/2025 varenicline tartrate (CHANTIX) 1 mg Oral TabletIndications:Tobacc o abuse Take 1 Tablet by mouth 2 times daily 11/17/2024 03/02/2025 amLODIPine (NORVASC) 2.5 mg Oral Tablet Take 1 Tablet by mouth once daily. 01/14/2025 03/02/2025 documented as of this encounter Care Teams Multimedia Producer Relationship Specialty Start Date End Date Marshal Crespo DO [address] [place] [address] PCP - General 07/02/10 documented as of this encounter
--- OUTSIDE RECORDS SUMMARY | 2025-04-26 03:36 | XMS_ITS | Clinical Summary ---
Author Organization [facility] Address [address] [place] [address] Phone Care Team Providers Care Cloth Measurer Machine Name Role Phone Marshal Crespo DO Primary Care Provider [phone] Allergies Active Allergy Reactions Criticality Noted Date Comments Adhesive Other (See Comments) 03/17/2018 dahl my skin , bandaids; paper tape is OK Codeine Rash 02/09/2010 Simvastatin Rash 03/23/2014 Medications * This document contains information received from the source organization and may not represent a complete record from that organization. prazosin (MINIPRESS) 1 mg Oral Capsule Take 1 mg by mouth nightly. Active risperiDONE (RISPERDAL) 2 mg Oral Tablet Take 2 mg by mouth nightly. 021 Active REXULTI 2 mg Oral 023 Active desvenlafaxine succinate (PRISTIQ) 100 mg Oral Tablet Sustained Release 24 hr 023 Active BREZTRI AEROSPHERE 160-9-4.8 mcg/actuation Inhl HFA Aerosol Inhaler Inhale 2 Puffs into the lungs 2 times daily. 10.7 g 3 023 Active diclofenac (VOLTAREN) 75 mg Oral Tablet, Delayed Release (E.C.)Indications :Cervicalgia Take 1 Tablet by mouth 2 times daily with meals as needed. 60 Tablet 023 Active doxepin (SINEQUAN) 25 mg Oral Capsule Take 25 mg by mouth nightly. at bedtime 023 Active busPIRone (BUSPAR) 5 mg Oral Tablet Take 5 mg by mouth 3 times daily. Active hydrOXYzine (VISTARIL) 25 mg Oral Capsule TAKE 2 CAPSULES BY MOUTH AT BEDTIME AND 1 CAPSULE BY MOUTH DAILY NEEDED FOR ANXIETY. Active aspirin 81 mg Oral Tablet, Delayed Release (E.C.) Take 1 Tablet by mouth daily. 30 Tablet 11 Active SYMBICORT 160-4.5 mcg/actuation Inhl HFA Aerosol Inhaler Inhale 2 Puffs into the lungs 2 times daily. Active methocarbamoL (ROBAXIN) 500 mg Oral Tablet Take 2 Tablets by mouth 3 times daily as needed for muscle spasms. 120 Tablet 2 Active gabapentin (NEURONTIN) 800 mg Oral TabletIndications :Generalized osteoarthritis of multiple sites,Type 2 diabetes mellitus with peripheral neuropathy (HCC) Take 1 Tablet by mouth 3 times daily. 90 Tablet 2 Active promethazine (PHENERGAN) 25 mg Oral Tablet Take 1 Tablet by mouth every 6 hours as needed for Nausea. 30 Tablet 2 025 Active amLODIPine (NORVASC) 2.5 mg Oral Tablet Take 1 Tablet by mouth once daily. 30 Tablet Active varenicline tartrate (CHANTIX) 1 mg Oral TabletIndications :Tobacco abuse Take 1 Tablet by mouth 2 times daily 56 Tablet 2 025 Active pravastatin (PRAVACHOL) 40 mg Oral Tablet Take 1 Tablet by mouth every evening. 100 Tablet 2 Active Brompheniramine-P seudoeph-DM 2-30-10 mg/5 mL Oral SyrupIndications: Acute bacterial sinusitis Take 10 mL by mouth every 4 hours as needed. 240 mL 025 Active AIMOVIG AUTOINJECTOR 140 mg/mL SubQ Auto-InjectorIndi cations:History of migraine Inject 1 ml under the skin once every 30 days. 1 mL 5 025 Active VENTOLIN HFA 90 mcg/actuation Inhl HFA Aerosol Inhaler Inhale 2 Puffs into the lungs every 6 hours as needed for wheezing. 18 g 025 Active sulfamethoxazole- trimethoprim (BACTRIM DS) 800-160 mg Oral TabletIndications :Cellulitis of left axilla Take 1 Tablet by mouth every 12 hours for 10 days. 20 Tablet 025 2024 Active LEVOthyroxine (SYNTHROID) 75 mcg Oral Tablet Take 1 Tablet by mouth daily. Active omeprazole (PRILOSEC) 40 mg Oral Capsule, Delayed Release(E.C.)Amarilys cations:Gastroeso phageal reflux disease with esophagitis, unspecified whether hemorrhage Take 1 Capsule by mouth once daily. 30 Capsule Active fUROsemide (LASIX) 20 mg Oral Tablet Take 1 Tablet by mouth daily as needed. 30 Tablet Active folic acid (FOLVITE) 1 mg Oral Tablet Take 1 Tablet by mouth daily. 30 Tablet Active loratadine (CLARITIN) 10 mg Oral Tablet Take 1 Tablet by mouth daily. 30 Tablet 3 Active dicyclomine (BENTYL) 20 mg Oral Tablet Take 1 Tablet by mouth 3 times daily as needed. 90 Tablet 2 Active SUMAtriptan (IMITREX) 100 mg Oral Tablet Take 1 Tablet by mouth at onset of migraine. MAY REPEAT in 2 hours if needed. 9 Tablet 2 Active omeprazole (PRILOSEC) 40 mg Oral Capsule, Delayed Release(E.C.)Amarilys cations:Gastroeso phageal reflux disease with esophagitis, unspecified whether hemorrhage Take 1 Capsule by mouth once daily. 100 Capsule 2 024 2024 Discontinued fUROsemide (LASIX) 20 mg Oral Tablet Take 1 Tablet by mouth daily as needed. 100 Tablet 2 024 2024 Discontinued AIMOVIG AUTOINJECTOR 140 mg/mL SubQ Auto-InjectorIndi cations:History of migraine Inject 1 ml under the skin once every 30 days. 1 mL 5 024 2024 Discontinued LEVOthyroxine (SYNTHROID) 75 mcg Oral Tablet Take 1 Tablet by mouth daily. Must make appointment for further refill 90 Tablet 3 025 2024 Discontinued dicyclomine (BENTYL) 20 mg Oral Tablet Take 1 Tablet by mouth 3 times daily as needed. 90 Tablet 2 025 2024 Discontinued loratadine (CLARITIN) 10 mg Oral Tablet Take 1 Tablet by mouth daily. 30 Tablet 3 025 2024 Discontinued VENTOLIN HFA 90 mcg/actuation Inhl HFA Aerosol Inhaler Inhale 2 Puffs into the lungs every 6 hours as needed for wheezing. 18 g 025 2024 Discontinued SUMAtriptan (IMITREX) 100 mg Oral Tablet Take 1 Tablet by mouth at onset of migraine. MAY REPEAT in 2 hours if needed. 15 Tablet 2 025 2024 Discontinued Active Problems Problem Noted Date Diagnosed Date Mallet finger of left hand 08/30/2021 Overview (08/30/2021): Added automatically from request for surgery [id number] Other chest pain 02/02/2021 Syncope and collapse 02/02/2021 Tinnitus, bilateral 11/25/2018 PTSD (post-traumatic stress disorder) 07/11/2018 Major depressive disorder, r ecurrent severe without psychotic features 06/06/2017 Assessment & Plan (04/16/2025 1:23 PM EDT): Orders: THYROID STIMULATING HORMONE; Future T4, FREE (THYROXINE); Future Sensorineural hearing loss (SNHL) of both ears 1 10/29/2015 Depression with anxiety 10/07/2015 Hypercholesterolemia 04/15/2015 Migraine 04/15/2015 Assessment & Plan (12/22/2024 9:20 AM EDT): Orders: ketorolac (TORADOL) injection 60 mg Type 2 diabetes mellitus with hypercholesterolem ia 04/28/2011 Endometriosis 05/03/2007 Overview (03/01/2017): Overview: ICD-10 Transition Tobacco use disorder 07/18/2006 Asthma Seasonal allergies Renal cyst Resolved Problems Problem Noted Date Diagnosed Date Resolved Date Folliculitis of perineum 06/06/201703/2018 Pressure sensation in right ear 08/28/2016 04/30/2018 Cyst of ovary 05/03/2007 07/05/2018 Abdominal pain 03/06/2007 04/30/2018 Overview (03/01/2017): Overview: ICD-10 Transition Acute pharyngitis 03/06/2007 04/30/2018 Tobacco use 07/18/2006 12/08/2019 Back pain 04/15/2015 Spell of altered cognition 1 Encounters Date Type Department Care Team Description 04/22/2025 Refill [facility] [address] [place], [place] [address] Marshal Crespo, Medication Refill 04/17/2025 Results Follow-Up [facility] [address] [place], [place] [address] Marshal Crespo DO LIPID SCREEN, THYROID STIMULATING HORMONE, T4, FREE (THYROXINE), Additional followed-up results: 4 04/16/2025 1:15 PM EDT Office Visit [facility] [address] [place] [address] Marshal Crespo, Annual physical exam (Primary Dx); Cellulitis of left axilla; Type 2 diabetes mellitus with peripheral neuropathy (HCC); Major depressive disorder, recurrent severe without psychotic features (HCC) 03/31/2025 Refill [facility] [address] [place] [address] Marshal Crespo, Medication Refill 03/09/2025 10:05 AM EDT - 03/09/2025 11:59 PM EDT Hospital Encounter [facility] [address] [place] [address] Marshal Crespo DO Screening mammogram for breast cancer Discharge Disposition: Home or Self Care 02/28/2025 Refill [facility] [address] [place], [place] [address] Marshal Crespo, Medication Refill 02/05/2025 Refill [facility] [place] [facility] [address] [place] [address] Marshal Crespo, Medication Refill from Last 3 Months Immunizations Immunization Administration Dates Next Due DTaP, Unspecified Formulation 06/28/1978 ,05/04/1973,02/23/1973,01/12 Hepatitis B (Recombinant), Adjuvanted 08/12/2020 Hepatitis B, Adult 12/08/2019,02/27/2019 Influenza Patient Reported 05/18/2019 Influenza Seasonal Injectable PF 08/28/2024 Influenza Vaccine Quadrivalent 07/26/2018 Influenza Vaccine Quadrivalent PF 06/25/2023, Influenza Virus Vaccine Quad rivalant, Flublok 06/13/2022,05/25/2020 MMR 11/25/1973 Moderna SARS-CoV-2 Booster V accine 18+ Yrs (Light Blue Border) 09/13/2021 Moderna SARS-CoV-2 Vaccine 1 2+ Yrs (Light blue border) 01/12/2021,12/15/2020 Pneumococcal Polysaccharide 23 Valent 08/30/2018 Polio, Unspecified Formulation 06/28/1978,1972,01/12/1973 Td, Unspecified Formulation 04/14/1988 Tdap 12/21/2020,01/03/2016 Zoster Recombinant 06/25/2023,11/28/2022 Surgical History Surgery Date Site/Laterality Comments APPENDECTOMY CHOLECYSTECTOMY AIME AND BSO FINGER SURGERY 10/07/2020 Left left small finger nerve repair; Surgeon: Everette Seth MD; Location: [facility]; Service: Hand Medical devices from this surgery are in the Medical Devices section. BREAST SURGERY Left mass removal SKIN GRAFT 10/13/2021 Left LEFT SMALL FINGER TISSUE REARRANGEMENT ; Surgeon: Everette Seth MD; Location: [facility]; Service: Orthopedics HYSTERECTOMY Medical History Medical History Date Comments Allergy Back pain Diabetes mellitus (HCC) diet con trolled Migraine Depression on meds Ulcer don't no when Renal cyst Rheumatoid arthritis (HCC) Bipolar 1 disorder (HCC) Asthma year round, uses inhaler Sleep apnea uses CPAP Hyperlipidemia Irritable bowel syndrome Thyroid disease Heartburn Syncope and collapse last episod e summer Motion sickness Anxiety Kidney disease Family History Medical History Relation Name Comments Substance Abuse Brother arnold sr Diabetes Father hattie sr Cancer Maternal Grandfather tanesha eng skin Arthritis Maternal Grandmother diana eng Heart Disease Maternal Grandmother diana eng High Blood Pressure Maternal Grandmother diana eng High Cholesterol Maternal Grandmother diana eng Stroke Maternal Grandmother diana eng Cancer Maternal Uncle 1 shayy eng spin Cancer Maternal Uncle 2 tj eng lung Arthritis Mother francisco javier sr Asthma Mother francisco javier sr Breast Cancer Mother francisco javier sr High Blood Pressure Mother francisco javier sr High Cholesterol Mother francisco javier sr Ovarian Cancer Mother fracnisco javier sr Relation Name Status Comments Brother arnold sr Father hattie sr Maternal Grandfather tanesha eng Maternal Grandmother diana eng Maternal Uncle 1 shayy eng Maternal Uncle 2 tj eng Mother francisco javier sr Social History Tobacco Use Types Packs/Day Years [...] Date Recorded PHQ-2 Total Score 0 12/22/2024 [facility] [place] [facility] - Occupational Stress [...] on file Sexual Orientation Not on file Obstetrics History Para Term AB IAB SAB Ectopic Multiple Livin g Live Births 6 6 5 1 6 Date Outcome GA Total Labor Labor/2nd/3rd Weight Sex Type Anes PTL Avani A1 A5 Name Clin Term Vag-Spo nt Term Vag-Spo nt Term Vag-Spo nt Term Vag-Spo nt Term Vag-Spo nt Vag-Spo nt Comments twins Last Filed Vital Signs Vital Sign Reading Time Taken Comments Blood Pressure 122/80 04/16/2025 1:09 PM EDT Pulse 88 06/01/2022 2:46 PM EDT Temperature 36.7 C (98.1 F) 04/16/2025 1:09 PM EDT Respiratory Rate 16 10/13/2021 4:01 PM EST Oxygen Saturation 96% 06/01/2022 2:46 PM EDT ra@rest Inhaled Oxygen Concentration - - Weight 90.7 kg (200 lb) 04/16/2025 1:09 PM EDT Height 154.9 cm (5' 1 ) 04/16/2025 1:09 PM EDT Body Mass Index 37.79 04/16/2025 1:09 PM EDT Plan of Treatment Health Maintenance Due Date Last Done Comments Colonoscopy 2017 FIT 2017 Sigmoidoscopy 2017 Virtual Colonography 2017 Pneumococcal Vaccine 50+ (2 of 2 - PCV) 08/30/2019 08/30/2018 COVID-19 Vaccine ( season) 2024 09/13/2021, 01/12/2021, 12/15/2020 Cologuard 04/24/2025 04/24/2022, 04/24/2022 Colon Cancer Screening 04/24/2025 Influenza Vaccine (#1) 2025 , 06/25/2023, 06/13/2022, Additional history exists Hemoglobin A1c 10/17/2025 04/16/2025, 120 01/2024, 02/19/2024, Additional history exists Kidney Health: uACR 12/22/2025 12/22/2024 Diabetic Eye Exam 02/28/2026 02/29/2024, , 11/28/2022, Additional history exists Annual Wellness Exam 04/16/2026 04/16/2025, 08/04/2014 (Declined) Kidney Health: eGFR 04/16/2026 04/16/2025, 08/28/2024, 02/19/2024, Additional history exists Lipids 04/16/2026 04/16/2025, 01/2024, 02/19/2024, Additional history exists Breast Cancer Screening 03/09/2027 03/09/20, 03/10/2024, 07/18/2021, Additional history exists DTaP/TDaP/Td (7 - Td or Tdap) 12/21/2030 12/21/2020, 01/03/2016, 04/14/1988, Additional history exists Hepatitis B Vaccine Completed 08/12/2020, 12/08/2019, 02/27/2019 Zoster Completed 06/25/2023, 11/28/2022 Meningococcal B Vaccine Aged Out No l onger eligible based on patient's age to complete this topic Goals Goal Patient Goal Type Associated Problems [...] 1:29 PM EDT) No Marleny Best RMA Medical Devices Implanted Type Area Cable Tower Operator Device Identifier Shelf Expiration Date Model / Serial / Lot Graft Sft Tis 30mm 1-2mm Avance Nrv Ntr Cnct - [id number] Implanted:Qty: 1 on 10/07/2020 by Everette Seth MD at [facility] Left: Finger [employer] 11/21/2022 [id number] / / [id number] Nerve Protector [employer] 5mm X 40mm - [id number] Implanted:Qty: 1 on 10/07/2020 by Everette Seth MD at [facility] Left: Finger [employer] 06/14/2022 [id number] / / [id number] Procedures Procedure Name Priority Date/Time Associated Diagnosis Comments BASIC METABOLIC PANEL Routine 04/16/2025 1:29 PM EDT Type 2 diabetes mellitus with peripheral neuropathy (HCC) HEPATIC FUNCTION PANEL Routine 04/16/2025 1:29 PM EDT Type 2 diabetes mellitus with peripheral neuropathy (HCC) HEMOGLOBIN A1C Routine 04/16/2025 1:29 PM EDT Type 2 diabetes mellitus with peripheral neuropathy (HCC) CBC Routine 04/16/2025 1:29 PM EDT Type 2 diabetes mellitus with peripheral neuropathy (HCC) T4, FREE (THYROXINE) Routine 04/16/2025 1:29 PM EDT Annual physical exam Major depressive disorder, recurrent severe without psychotic features (HCC) THYROID STIMULATING HORMONE Routine 04/16/2025 1:29 PM EDT Annual physical exam Major depressive disorder, recurrent severe without psychotic features (HCC) LIPID SCREEN Routine 04/16/2025 1:29 PM EDT Type 2 diabetes mellitus with peripheral neuropathy (HCC) MM MAMMO DIGITAL CLARY SCREEN BILAT Routine 03/09/2025 10:17 AM EDT Screening mammogram for breast cancer MICROALBUMIN/CREATIN INE RATIO URINE Routine 12/22/2024 9:21 AM EDT Type 2 diabetes mellitus with peripheral neuropathy (HCC) HM DIABETES EYE EXAM Routine 02/29/2024 5:26 PM EDT COLOGUARD Routine 04/24/2022 8:15 AM EDT Screening for colon cancer Screening for cancer of the rectum from Last 3 Months or Most Recently Relevant to Health Maintenance Results * CBC (04/16/2025 1:29 PM EDT) WBC 7.7 3.7 - 10.3 x10(3)/mcL 04/16/2025 8:39 PM EDT [facility] RBC 4.75 3.90 - 5.20 x10(6)/mcL 04/16/2025 8:39 PM EDT [facility] Hgb 14.2 11.2 - 15.7 g/dL 04/16/2025 8:39 PM EDT [facility] Hct 44.0 34.0 - 45.0 % 04/16/2025 8:39 PM EDT [facility] MCV 92.6 80.0 - 100.0 fL 04/16/2025 8:39 PM EDT [facility] MCH 29.9 26.0 - 34.0 pg 04/16/2025 8:39 PM EDT [facility] MCHC 32.3 30.7 - 35.5 g/dL 04/16/2025 8:39 PM EDT [facility] RDW 13.1 <=14.9 % 04/16/2025 8:39 PM EDT [facility] Platelet 221 155 - 369 x10(3)/mcL 04/16/2025 8:39 PM EDT [facility] MPV 12.3 8.8 - 12.5 fL 04/16/2025 8:39 PM EDT [facility] Blood VENOUS BLOOD / Unknown Venipuncture / Unknown 04/16/2025 1:29 PM EDT 04/16/2025 1:29 PM EDT us Marshal Crespo DO HEMATOLOGY ORDERABLES Final Res ult [facility] [address] [facility] , [address] [place] [id number] * (ABNORMAL) THYROID STIMULATING HORMONE (04/16/2025 1:29 PM EDT) TSH 0.171(L) 0.270 - 4.200 mcIU/mL 04/17/2025 12:01 AM EDT [facility] Blood VENOUS BLOOD / Unknown Venipuncture / Unknown 04/16/2025 1:29 PM EDT 04/16/2025 1:29 PM EDT Narrative [facility] - 04/17/2025 12:01 AM EDT Ingestion of victor m doses of biotin (>5 mg/day) taken within 8 hours of drawing blood sample can interfere with this immunoassay test. [facility] CHEMISTRY ORDERABLES Final [facility] Performing Organization Address [facility] [address]/[facility] Co de Phone Number [facility] [employer] [place] [address] [place] [address] * T4, FREE (THYROXINE) (04/16/2025 1:29 PM EDT) Free T4 1.29 0.80 - 1.80 ng/dL 04/17/2025 12:01 AM EDT [facility] Blood VENOUS BLOOD / Unknown Venipuncture / Unknown 04/16/2025 1:29 PM EDT 04/16/2025 1:29 PM EDT Narrative [facility] - 04/17/2025 12:01 AM EDT Ingestion of victor m doses of biotin (>5 mg/day) taken within 8 hours of drawing blood sample can interfere with this immunoassay test. [facility] CHEMISTRY ORDERABLES Final Resu Performing Organization Address [facility] [address]/ZIP Co de Phone Number [facility] [employer] [place], [place] [id number] * HEMOGLOBIN A1C (04/16/2025 1:29 PM EDT) Hgb A1C 5.5 4.2 - 5.6 % 04/16/2025 9:00 PM EDT [facility] [employer], [facility] Est. Avg Glucose 111 mg/dL 04/16/2025 9:00 PM EDT [facility] [employer], [facility] Blood VENOUS BLOOD / Unknown Venipuncture / Unknown 04/16/2025 1:29 PM EDT 04/16/2025 1:29 PM EDT Narrative [facility], [facility] - 04/16/2025 9:00 PM EDT REFERENCE RANGE: Normal: 4.0-5.6% Pre-diabetes: 5.7-6.4% Provisional diagnosis of diabetes: >6.4% Hgb F>10% and anything which shortens red cell survival, such as hemolytic anemia, or unstable hemoglobin variants such as HbSS, HbSC, or HbCC, will lower the HbA1c value associated with a given level of glycemic control. us Marshal Zak DO CHEMISTRY ORDERABLES Final Resu lt [facility] [employer], [facility] [address] [facility] , [place] [address] * (ABNORMAL) HEPATIC FUNCTION PANEL (04/16/2025 1:29 PM EDT) Total Protein 6.9 6.4 - 8.3 gm/dL 04/16/2025 11:57 PM EDT [facility], [facility] Albumin 3.9 3.5 - 5.2 gm/dL 04/16/2025 11:57 PM EDT [facility], [facility] Bili Direct <0.2 0.0 - 0.3 mg/dL 04/16/2025 11:57 PM EDT [facility], [facility] Bili Total 0.3 0.2 - 1.3 mg/dL 04/16/2025 11:57 PM EDT [facility] AST 15 <=40 U/L 04/16/2025 11:57 PM EDT [facility], [facility] ALT 8 <=41 U/L 04/16/2025 11:57 PM EDT [facility] Alk Phos 124(H) 36 - 123 U/L 04/16/2025 11:57 PM EDT [facility] [employer], [facility] Blood VENOUS BLOOD / Unknown Venipuncture / Unknown 04/16/2025 1:29 PM EDT 04/16/2025 1:29 PM EDT us Marshal Zak DO CHEMISTRY ORDERABLES Final Resu lt [facility] [employer] [address] [facility] , [place] [address] * (ABNORMAL) LIPID SCREEN (04/16/2025 1:29 PM EDT) [facility] Cholesterol 148 <200 mg/dL 04/16/2025 11:57 PM EDT [facility] [employer] [employer] Comment: < 200 Desirable 200 - 239 Borderline High >= 240 High Triglyceride 173(H) <150 mg/dL 04/16/2025 11:57 PM EDT [employer] Comment: < 150 Normal 150 - 199 Borderline High 200 - 499 High >= 500 Very High HDL 33(L) >=40 mg/dL 04/16/2025 11:57 PM EDT [employer] Comment: > 60 Optimal 40 - 60 Acceptable < 40 Low LDL Calculated 85 <100 mg/dL 04/16/2025 11:57 PM EDT [employer] Comment: < 100 Optimal 100 - 129 Near or above optimal 130 - 159 Borderline High 160 - 189 High >= 190 Very High The National Institutes of Health (NIH) equation is used for all lipid panels that report calculated LDL (LDL-C). Non-HDL-C Calculated 115 <=129 mg/dL 04/16/2025 11:57 PM EDT [employer] [employer] Comment: <130 Desirable 130-159 Above Desirable 160-189 Borderline High 190-219 High >= 220 Very High Fasting Specimen? Unknown None 025 11:57 PM EDT [employer] [employer] Blood VENOUS BLOOD / Unknown Venipuncture / Unknown 04/16/2025 1:29 PM EDT 04/16/2025 1:29 PM EDT Marshal Zak DO CHEMISTRY ORDERABLES Final Resu lt Performing Organization Address City/[facility] [address]/ZIP Co de Phone Number P[facility] [employer] [employer] [address] [facility] , [place] [address] * (ABNORMAL) BASIC METABOLIC PANEL (04/16/2025 1:29 PM EDT) Sodium 139 136 - 145 mmol/L 04/16/2025 11:57 PM EDT [facility] Potassium 3.9 3.5 - 5.0 mmol/L 04/16/2025 11:57 PM EDT [facility] Chloride 104 98 - 107 mmol/L 04/16/2025 11:57 PM EDT [facility] Total CO2 24 22 - 29 mmol/L 04/16/2025 11:57 PM EDT [facility] Anion Gap 11 7 - 16 mmol/L 04/16/2025 11:57 PM EDT [facility] Calcium 9.7 8.6 - 10.4 mg/dL 04/16/2025 11:57 PM EDT [facility] Glucose Lvl 124(H) 70 - 99 mg/dL 04/16/2025 11:57 PM EDT [facility] BUN 7 6 - 20 mg/dL 04/16/2025 11:57 PM EDT [facility] Creatinine 0.73 0.51 - 1.30 mg/dL 04/16/2025 11:57 PM EDT [facility] eGFR (CKD-EPIcr 2020) 98 >=60 mL/min/1.7 3 m2 04/16/2025 11:57 PM EDT [facility] Comment:Estimated GFR was ca lculated using the CKD-EPIcr (2020) equation refit without race. The equation is recommended by the National Kid[employer] - [place] [employer]ph[employer] Task Force. Blood VENOUS BLOOD / Unknown Venipuncture / Unknown 04/16/2025 1:29 PM EDT 04/16/2025 1:29 PM EDT us Marshal Crespo DO CHEMISTRY ORDERABLES Final Resu lt [facility], [facility] [address], [place] [address] * MM MAMMO DIGITAL CLARY SCREEN BILAT (03/09/2025 10:17 AM EDT) Anatomical Region Laterality Modality Breast Bilateral Mammography 03/09/2025 10:1 7 AM EDT Impressions 03/10/2025 8:08 AM EDT Negative ([id number]) RECOMMENDATION: Routine Screening Mammogram in 1 Year Bilateral . . COMMENTS: DISCLAIMER *The patient was notified by MyChart or mail of the results for this examination. *The patient's information was entered into a reminder system with a target due date for the next breast imaging, in accordance with the [place] [employer] and the Society of [...] for screening mammogram for malignant neoplasm of [id number]-[id number] COMPARISON STUDIES: Compared with prior studies the most recent being 03/10/2024 MM MAMMO DIGITAL CLARY SCREEN BILAT at [facility] 07/18/2021 MM MAMMO DIGITAL CLARY SCREEN BILAT at [facility] 07/01/2020 MM MAMMO DIGITAL SCREENING W CAD BILAT at [facility] TISSUE DENSITY: There are scattered areas of fibroglandular density. FINDINGS: No mammographic evidence of malignancy. Procedure Note Mina Thomas MD - 03/10/2025 EXAM: MM MAMMO DIGITAL CLARY SCREEN BILAT EXAM DATE: 03/09/2025 10:17 AM INDICATION: Z12.31-Encounter for screening mammogram for malignantneoplasm of [id number] COMPARISON STUDIES: Compared with prior studies the most recent being 03/10/2024 MM MAMMO DIGITAL CLARY SCREEN BILAT at [facility] 07/18/2021 MM MAMMO DIGITAL CLARY SCREEN BILAT at [facility] 07/01/2020 MM MAMMO DIGITAL SCREENING W CAD BILAT at [facility] TISSUE DENSITY: There are scattered areas of fibroglandular density. FINDINGS: No mammographic evidence of malignancy. IMPRESSION: Negative ([id number]) RECOMMENDATION: Routine Screening Mammogram in 1 Year Bilateral . . COMMENTS: DISCLAIMER *The patient was notified by MyChart or mail of the results for this examination. *The patient's information was entered into a reminder system with atarget due date for the next breast imaging, in accordance with the [place] [employer] and the Society of Breast Imaging recommendations. *Breast Imaging has a false negative rate of 15%. *Any patient with a palpable abnormality, unexplained by breast imaging,should be managed on a clinical basis by the attending physician. [facility] IMG MAMMOGRAPHY ORDERABLES Dari l Result * MICROALBUMIN/CREATININE RATIO URINE (12/22/2024 9:21 AM EDT) Urine Microalb <12.0 mg/L 12/22/2024 3:35 PM EDT [facility] Urine Creatinine 155.0 mg/dL 12/23/19 25 3:35 PM EDT [facility] Ur Microalb/Creat 025 3:35 PM EDT [facility] Comment: Because the albumin level is below the level of detection in this urine specimen, the laboratory is unable to calculate a reliable albumin/creatinine ratio. Microalbuminuria is unlikely if the urine albumin concentration is less than 20- 30 mg/L in a random specimen. Urine STRUCTURE OF URINARY TRACT PROPER / Unknown 12/22/2024 9:21 AM EDT 12/22/2024 9:21 AM EDT [facility] URINE ORDERABLES Final Result [facility], [place] [place] [address] * DIABETES EYE EXAM (02/29/2024 5:26 PM EDT) Left Diabetic Retinopathy Not Present Present/Not Present SEP OFFICE Right Diabetic Retinopathy Not Present Present/Not Present SEP OFFICE us Historical Provider HEALTH MAINTENANCE Edited Re sult - Final SEP OFFICE * COLOGUARD (04/24/2022 8:15 AM EDT) COLOGUARD CLINICAL REPORT Negative Negative [facility] Comment: NEGATIVE TEST RESULT. A negative Cologuard result indicates a low likelihood that a colorectal cancer (CRC) or advanced adenoma (adenomatous polyps with more advanced pre-malignant features) is present. The chance that a person with a negative Cologuard test has a colorectal cancer is less than 1 in 1500 (negative predictive value >99.9%) or has an advanced adenoma is less than 5.3% (negative predictive value 94.7%). These data are based on a prospective cross-sectional study of 10,000 individuals at average risk for colorectal cancer who were screened with both Cologuard and colonoscopy. (Melissa Schultz et al, N Engl J Med 2014;370(14):4450-9760) The normal value (reference range) for this assay is negative. COLOGUARD RE-SCREENING RECOMMENDATION: Periodic colorectal cancer screening is an important part of preventive healthcare for asymptomatic individuals at average risk for colorectal cancer. Following a negative Cologuard result, the [place] [employer] and U.S. Multi-Society Task Force screening guidelines recommend a Cologuard re-screening interval of 3 years. References: [place] [employer] Guideline for Colorectal Cancer Screening: https://www.cancer.org/cancer/xkdax-pgsoxu-hlcfdw/uhpaiqqtl-svrwruhcy-bmrhhgl/ac s-rec ommendations.html.; Daniel DOMINGO, Diogo CR, Rica CaldwellK, Colorectal Cancer Screening: Recommendations for Physicians and Patients from the U.S. Multi-Society Task Force on Colorectal Cancer Screening , Am J Gastroenterology 2017; 112:8070-2577. TEST DESCRIPTION: Composite algorithmic analysis of stool DNA-biomarkers with hemoglobin immunoassay. Quantitative values of individual biomarkers are not reportable and are not associated with individual biomarker result reference ranges. Cologuard is intended for colorectal cancer screening of adults of either sex, 45 years or older, who are at average-risk for colorectal cancer (CRC). Cologuard has been approved for use by the U.S. FDA. The performance of Cologuard was established in a cross sectional study of average-risk adults aged 50-84. Cologuard performance in patients ages 45 to 49 years was estimated by sub-group analysis of near-age groups. Colonoscopies performed for a positive result may find as the most clinically significant lesion: colorectal cancer [4.0%], advanced adenoma (including sessile serrated polyps greater than or equal to 1cm diameter) [20%] or non- advanced adenoma [31%]; or no colorectal neoplasia [45%]. These estimates are derived from a prospective cross-sectional screening study of 10,000 individuals at average risk for colorectal cancer who were screened with both Cologuard and colonoscopy. (Melissa Almaraz al, N Engl J Med 2014;370(14):3498-2981.) Cologuard may produce a false negative or false positive result (no colorectal cancer or precancerous polyp present at colonoscopy follow up). A negative Cologuard test result does not guarantee the absence of CRC or advanced adenoma (pre-cancer). The current Cologuard screening interval is every 3 years. ([place] [employer] and U.S. Multi-Society Task Force). Cologuard performance data in a 10,000 patient pivotal study using colonoscopy as the reference method can be accessed at the following location: www.[employer]/results. Additional description of the Cologuard test process, warnings and precautions can be found at [email or web address]. Stool 04/24/2022 8:15 AM EDT 04/25/2022 11:35 PM EDT us Marshalenrique Crespo DO [facility] - ORDERABLES Dari laith Result [employer], [facility] [address] [place] [address], [facility] [employer] [address] [place] [address] from Last 3 Months or Most Recently Relevant to Health Maintenance Insurance * Guarantor: Cordelia Sr Account Type Relation to Patient Date of Phone Billing Address Personal/Family Self 1970 [address] [place] [address] [employer] [facility] * Guarantor: Cordelia Sr A Account Type Relation to Patient Date of Phone Billing Address SEP Personal Family Account Self 1970 [address] [facility] * Guarantor: Cordelia Sr Account Type Relation to Patient Date of Phone Billing Address Patient First Personal/Family Self 1970 [address] [place] [address] Advance Directives For more information, please contact: [phone] * Full Code (Latest Code Status on File) Date Activated Date Inactivated Comments 06/05/2017 1:50 PM 06/08/2017 10:07 PM Care Teams Cloth Measurer Machine Relationship Specialty Start Date End Date Marshal Crespo DO [address] [place] [address] PCP - General 07/02/10
--- NOTE | 2025-04-26 03:42 | HMH.EDGENADL ---
Discharge Plan Disposition Patient Disposition: Home, Self-Care Condition: Good Prescriptions Prescriptions: New lidocaine 4 % cream 1 applic topical BID PRN (Reason: pain) Qty: 15 0RF Rx Instructions: Apply pea-sized amount to the affected area once every 12 hours if needed for muscle pain and spasm. Be sure to wash the area before each application. No Action doxepin 10 mg capsule 10 mg PO HS Patient Comments: TAKE 1 CAPSULE BY MOUTH NIGHTLY FOR SLEEP. Rexulti 3 mg tablet 3 mg PO Patient Comments: TAKE 1 TABLET BY MOUTH ONCE DAILY. polyethylene glycol 3350 [Miralax] 17 gram/dose powder 17 g PO DAILY Qty: 510 11RF Citrucel Sugar Free Powder 1 tbsp PO DAILY Qty: 1191 11RF prazosin 1 mg capsule 1 mg PO DAILY meloxicam 15 mg tablet 15 mg PO DAILY omeprazole 40 mg capsule,delayed release(DR/EC) 40 mg PO DAILY aspirin 81 mg tablet,delayed release (DR/EC) 81 mg PO DAILY levothyroxine 75 mcg tablet 75 mcg PO DAILY dicyclomine 20 mg tablet 20 mg PO ONCE folic acid 1 mg tablet 1 mg PO DAILY furosemide 20 mg tablet 20 mg PO DAILY PRN (Reason: Hypertension) Patient Comments: TAKE 1 TABLET BY MOUTH NEEDED. desvenlafaxine succinate 100 mg tablet extended release 24 hr 100 mg PO DAILY Emgality Syringe 120 mg/mL syringe 120 mg SQ QMONTH Patient Comments: INJECT 1 ML UNDER THE SKIN EVERY 30 DAYS. varenicline tartrate 1 mg tablet 1 mg PO ONCE loratadine 10 mg tablet 10 mg PO DAILY Patient Comments: TAKE 1 TABLET BY MOUTH DAILY. pravastatin 40 mg tablet 40 mg PO HS Patient Comments: TAKE 1 TABLET BY MOUTH EVERY EVENING. buspirone 15 mg tablet 15 mg PO TID PRN budesonide-formoterol [Symbicort] 160-4.5 mcg/actuation HFA aerosol inhaler 2 puff inhalation BID 90 Days Qty: 10.2 2RF albuterol sulfate [Ventolin HFA] 90 mcg/actuation HFA aerosol inhaler 2 puff inhalation Q6H PRN Patient Comments: INHALE 2 PUFFS INTO THE LUNGS EVERY 6 HOURS NEEDED FOR WHEEZING. hydroxyzine pamoate 50 mg capsule 50 mg PO HS Patient Comments: TAKE 1 TO 2 CAPSULES BY MOUTH NIGHTLY FOR SLEEP. amlodipine 2.5 mg tablet 2.5 mg PO DAILY Qty: 30 5RF sertraline [Zoloft] 100 MG tablet 100 mg PO DAILY gabapentin 800 MG tablet 800 mg PO DAILY promethazine 25 MG tablet 25 mg PO Q8HP PRN (Reason: Nausea And Vomiting) Referrals Follow up/Referrals: Marshal Crespo [Primary Care Provider, Medical] - See instructions Activity Restrictions/Add. Instructions Additional Instructions/Restrictions: You were evaluated in the ER and are believed to be appropriate for discharge at this time. Take Tylenol and ibuprofen at home, do not exceed the recommended dose on the bottle. Drink water and eat a small snack each time you take these medications to avoid side effects. Continue taking your methocarbamol and other home medications as previously directed. Use the prescribed lidocaine cream as directed. Use ice or heating pad on the area as needed for up to 20 minutes at a time. Make an appointment with your primary care doctor for reevaluation in 2 to 3 days. Return to the ER with any new, worsening, or otherwise concerning symptoms. Clinical Impressions Clinical Impression: Muscle spasm, Neck pain Instructions Patient Instructions: Chronic Neck Pain, DI for Neck Pain Print Language Print Language: Pashto Discharge ED Provider: Nilson Golden General Adult HPI General Chief complaint: Neck Pain/Injury Stated complaint: neck pain Time Seen by Provider: 04/26/25 03:26 Mode of Arrival: Ambulatory Source of Information: Patient Description of Symptoms (Recalled from ER Triage Doc. by RN): pt presents to the ed for evaluation of pain and tenderness to left side of neck that began approx 2 days ago after what she thinks is caused by sleeping on her neck wrong. Pain reproducible, no obvious deformity noted, no falls. No numbness or tingling to BUE or BLE History of Present Illness HPI narrative: 54-year-old female with a history of CAD, COPD presents to the ER complaining of pain and tenderness to the left side of her neck beginning approximately 2 days ago. Patient reports she thinks she slept on her neck wrong but it still does not feel better. Patient reports pain and indicates to the mid segment of her left SCM. She states it feels like it catches and when asked to describe this further he states it feels like a spasm especially when she tries to turn her head to the left. The pain stays localized to the area she indicated, there is no radiation, she has no pain in the back of her neck, no traumatic injuries, no pain on the right side of the neck. She has no difficulty swallowing, no trouble breathing, does not feel like there is a mass or pressure in the area. She has had no fevers or chills. She thought maybe she had an ear infection causing this though she has no ear pain. She states she has taken 2 Advil a few times a day to try to help with symptoms without relief. She takes methocarbamol daily as a previous, baseline prescription. No injuries, she has no numbness, tingling, or weakness, no difficulty moving her arms, no other complaints or concerns. Related Data Home Medications ?Medication ?Instructions ?Recorded ?Confirmed gabapentin 800 mg tablet 800 mg PO DAILY Diabetes 10/03/17 04/22/25 promethazine 25 mg tablet 25 mg PO Q8HP PRN Nausea And 10/03/17 04/22/25 Vomiting sertraline 100 mg tablet (Zoloft) 100 mg PO DAILY Depression 10/03/17 04/22/25 aspirin 81 mg tablet,delayed 81 mg PO DAILY 02/26/24 04/22/25 release desvenlafaxine succinate 100 mg 100 mg PO DAILY 02/26/24 04/22/25 tablet,extended release 24 hr dicyclomine 20 mg tablet 20 mg PO ONCE 02/26/24 04/22/25 folic acid 1 mg tablet 1 mg PO DAILY 02/26/24 04/22/25 furosemide 20 mg tablet 20 mg PO DAILY PRN Hypertension 02/26/24 04/22/25 galcanezumab-gnlm 120 mg/mL 120 mg SQ QMONTH 02/26/24 04/22/25 subcutaneous syringe (Emgality) levothyroxine 75 mcg tablet 75 mcg PO DAILY 02/26/24 04/22/25 meloxicam 15 mg tablet 15 mg PO DAILY 02/26/24 04/22/25 omeprazole 40 mg capsule,delayed 40 mg PO DAILY 02/26/24 04/22/25 release prazosin 1 mg capsule 1 mg PO DAILY 02/26/24 04/22/25 loratadine 10 mg tablet 10 mg PO DAILY 03/24/24 04/22/25 pravastatin 40 mg tablet 40 mg PO HS 03/24/24 04/22/25 varenicline tartrate 1 mg tablet 1 mg PO ONCE 03/24/24 04/22/25 doxepin 10 mg capsule 10 mg PO HS 04/28/24 04/22/25 albuterol sulfate 90 mcg/actuation 2 puff inhalation Q6H PRN 07/24/24 04/22/25 aerosol inhaler (Ventolin HFA) buspirone 15 mg tablet 15 mg PO TID PRN 07/29/24 04/22/25 brexpiprazole 3 mg tablet (Rexulti) 3 mg PO 09/09/24 04/22/25 hydroxyzine pamoate 50 mg capsule 50 mg PO HS 03/05/25 04/22/25 Previous Rx's ?Medication ?Instructions ?Recorded budesonide-formoterol HFA 160 2 puff inhalation BID 90 days 08/05/24 mcg-4.5 mcg/actuation aerosol #10.2 grams inhaler (Symbicort) amlodipine 2.5 mg tablet 2.5 mg PO DAILY #30 tabs 03/13/25 methylcellulose (laxative) 1 tbsp PO DAILY #1,191 grams 04/22/25 (Citrucel Sugar Free oral powder) polyethylene glycol 3350 17 17 g PO DAILY #510 grams 04/22/25 gram/dose oral powder (Miralax) lidocaine 4 % topical cream 1 applic topical BID PRN pain #15 04/26/25 grams Allergies Allergy/AdvReac Type Severity Reaction Status Date / Time codeine (CODEINE) Allergy Unknown Verified 04/22/25 11:44 adhesive Allergy Verified 04/22/25 11:44 hydromorphone Allergy Verified 04/22/25 11:44 simvastatin Allergy [facility]25 [facility] The information contained in this section may have been updated after the patient was seen, as this information can be updated by other users. Medical History CAD (coronary artery disease) Dyspnea on exertion Smoking greater than 30 pack years ALVINO (obstructive sleep apnea) Right ventricular dilation IBS (irritable bowel syndrome) COPD (chronic obstructive pulmonary disease) Asthma Family history of CHF (congestive heart failure) Abnormal electrocardiogram [ECG] [EKG] Surgical History History of lumpectomy Hx of appendectomy History of cholecystectomy H/O: hysterectomy Family History Other Asthma Cancer Coronary artery disease Diabetes Heart attack Hyperlipidemia Hypertension Stroke Substance abuse Thyroid disorder Social History (Updated 04/22/25 @ 11:51 by Latha Aldana MA) Smoking Status: Never smoker alcohol intake: former substance use type: former substance user and painkillers current occupational status: disabled Travel in the last 8 weeks?: None household members: family housing: house marital status: number of children: 6 Have you lived/traveled outside [place] in past 30 days?: No Contact w/someone who lives/traveled outside US past 30 days?: No Exposure to someone with infectious disease in past 14 days?: No Do you have a fever (greater than 100.4 F or 38 C)?: No Have you tested positive for COVID-19?: No Exposed to someone with COVID-19 in past 14 days?: No Do you have a sore throat?: No Do you have a cough?: No Do you have any weakness?: No Do you have any diarrhea?: No Are you experiencing any unusual bleeding?: No Do you have any muscle aches/pain?: Yes Do you have any abdominal pain?: No Are you experiencing loss of taste or smell?: No Other Medical History Have you received the Flu Vaccine for this season: No Have you received the Pneumonia Vaccine: No ROS Obtained: Yes Systems reviewed as appropriate & no additional complaints except as documented Per HPI Physical Exam General General appearance: alert and in no apparent distress Head Head exam: atraumatic and normocephalic Eye Eye exam: Present PERRL and EOMI ENT ENT exam: Present normal oropharynx, mucous membranes moist and TM's normal bilaterally Neck Neck exam: Present normal inspection, full ROM (Patient has discomfort with full range of motion especially when looking to the left but range of motion is full and does not cause any pain in the back of her neck, no numbness, tingling, paresthesias, or other symptoms.) and tenderness (Mild tenderness in the middle section of the left SCM with no swelling or deformity, no bruising.); Absent lymphadenopathy Expanded Neck Exam Neck exam focused ED: Absent midline tenderness, tracheal deviation, anterior neck swelling, thyroid enlargement or carotid bruit Comment: Normal palpation throughout the front and lateral neck when swallowing, no masses appreciated, normal phonation Chest Chest inspection: Present symmetric chest wall rise Respiratory Respiratory exam: Present normal lung sounds bilaterally; Absent respiratory distress, wheezes or stridor Cardiovascular Cardiovascular exam: Present regular rate and normal rhythm Extremities Exam Extremities exam: Present full ROM; Absent edema Neurological Exam Neurological exam: Present alert, oriented X3, CN II-XII intact and normal gait (Independently ambulatory into the ER); Absent motor sensory deficit (Full strength and sensation throughout all extremities with full range of motion) Psychiatric Psychiatric exam: Present normal affect and normal mood Skin Skin exam: Present warm and dry Medical Decision Making Medical Records Medical records reviewed: Yes I reviewed the patient's medical records. Screening: Per USPSTF and CDC recommendations, given the prevalence of disease in our region, it is our hospital?s policy to screen for HIV and viral Hepatitis for all patients aged 18 and over and those with ongoing risk factors. [place] Inquiry Pt receiving controlled substance: No Vital Signs: 04/26/25 03:32 Temperature 97.8 F Temperature Source Oral Pulse Rate [Radial] 74 Respiratory Rate 14 Blood Pressure [Right Arm] 142/97 H Blood Pressure Mean [Right Arm] 112 Blood Pressure Position [Right Arm] Sitting 02 Sat by Pulse Oximetry 96 Oxygen Delivery Method Room Air Orders (Tests/Meds): ED MEDICATIONS Discontinued Medications Generic Name Dose Route Start Last Admin Trade Name Freq PRN Reason Stop Dose Admin Acetaminophen 1,000 mg 04/26/25 03:35 04/26/25 03:43 Acetaminophen 500mg Tab PO 04/26/25 03:36 1,000 mg ONCE ONE Administration Cyclobenzaprine HCl 10 mg 04/26/25 03:35 04/26/25 03:43 Cyclobenzaprine 10mg Tablet PO 04/26/25 03:36 10 mg ONCE ONE Administration Diphenhydramine HCl 12.5 mg 04/26/25 03:38 04/26/25 03:44 Diphenhydramine 50mg/Ml Vial IM 04/26/25 03:39 12.5 mg ONCE ONE Administration Ketorolac Tromethamine 15 mg 04/26/25 03:35 04/26/25 03:44 Ketorolac 30mg/Ml Vial IM 04/26/25 03:36 15 mg ONCE ONE Administration Medical Decision Narrative: In summary, this 54-year-old female with comorbidities described in the HPI presents to the emergency department today with left-sided neck pain. On initial evaluation patient is hemodynamically stable, afebrile, airway patent, no stridor, tolerating secretions, tympanic membrane's normal, no vertebral tenderness, no paraspinal tenderness, patient only has tenderness in the middle section of the left SCM with no traumatic findings, no lymphadenopathy, patient has pain with range of motion when looking to the left but no paresthesias, weakness, or any other associated symptoms. Left SCM does feel tight, spasmed compared to the right. She has full range of motion of the upper extremities with full strength. Neurologically intact throughout. No bruit. Differential diagnosis includes but is not limited to muscle spasm, considered brachial plexus injury, considered osseous injury though without traumatic event considered this to be extremely unlikely. Patient reports a history of degenerative disc disease so I considered this but she has no pain in the back of her neck and it is isolated to the left SCM which feels spasmed. I did consider the possibility of carotid dissection, aneurysm or other abnormality with the vasculature but there is no carotid bruit, no hematoma or mass appreciated and patient does not have any headache, vision changes, or other neurologic abnormalities. There are no infectious signs or symptoms, no palpation of mass or thyroid abnormality. I considered advanced radiologic imaging but I do not think this is indicated at this time given patient's history and very reassuring physical exam. I do not believe she requires any labs at this time either. I discussed my suspicions with the patient and she is comfortable with the plan for no additional workup at this time. She received a dose of Toradol, Tylenol, Flexeril, and low-dose Benadryl to help with muscle relaxation and pain management. She states she cannot tolerate lidocaine patches because of the adhesive so lidocaine cream was prescribed to her. I believe she is appropriate for discharge at this time. She is comfortable with this plan. Patient was given instructions on symptomatic monitoring and management, follow up instructions, and return precautions for the emergency department including but not limited to any neurologic abnormalities. Patient indicated understanding and was discharged in stable condition. Critical Care Critical Care Time Critical Care Time: No
[2025-04-26] MEDS: ACETAMINOPHEN 500MG TAB 1000 MG PO (03:43)
[2025-04-26] MEDS: CYCLOBENZAPRINE 10MG TABLET 10 MG PO (03:43)
[2025-04-26] MEDS: KETOROLAC 30MG/ML VIAL 15 MG IM (03:44)
[2025-04-26 04:05] VITALS: BP 135/95; PULSE 70; RESP 15; TEMP 36.7; O2SAT 97
== END 2025-04-26 04:09 | disposition home or self-care (01) ==
PROVIDERS: Emergency Provider Emergency Medicine; PCP Family Medicine
DX: M45.2 Ankylosing spondylitis of cervical region (principal); M62.838 Other muscle spasm; J45.909 Unspecified asthma, uncomplicated; G47.34 Idiopathic sleep related nonobstructive alveolar hypoventilation
CPT/HCPCS: 96372; 99284; J1200; J1885

== ENCOUNTER 2025-05-10 19:18 | Emergency (ER) | payer MEDICAID, SELFPAY ==
--- OUTSIDE RECORDS SUMMARY | 2021-06-20 09:24 | XMS_ITS | Encounter Summary ---
Author Organization [place] [address] Care Team Providers Care Technical Support Engineer Name Role Phone Marshal Crespo DO Primary Care Provider [phone] Encounter Details Date Type Department Care Team (Latest Contact Info) Description 06/20/2021 9:24 AM EDT Hospital Encounter [facility] Referral Lab [id number] Dia Santoyo, JOSE [address] [place] [address] Encounter for therapeutic drug level monitoring Social History Tobacco Use Types Packs/Day Years Used Date Smoking Tobacco: Every Day Cigarettes 0.5 16.8 Started: 05/26/2020 Passive Smoke Exposure: Current Smokeless Tobacco: Never Comments:orig started 8, started again 10/12, quit 12/12 Alcohol Use Standard Drinks/Week Comments Not Currently 0 (1 standard drink = 0.6 oz pur e alcohol) social; quit '20 Overall Financial Resource Strain (CARDIA) Answe r Date Recorded How hard is it for you to pa y for the very basics like food, housing, medical care, and heating? Not hard at all 05/25/2020 PHQ-2 Answer Date Recorded PHQ-2 Total Score 0 12/22/2024 [facility] Occup[facility] - Occupational Stress Questionnaire Answer Date Recorded Do you feel stress - tense, restless, nervous, or anxious, or unable to sleep at night because your mind is troubled all the time - these days? To some extent 12/15/2020 Exercise Vital Sign Answer Date Recorde d On average, how many days pe r week do you engage in moderate to strenuous exercise (like a brisk walk)? 7 days 12/15/2020 On average, how many minutes do you engage in exercise at this level? 60 min 12/15/2020 Hunger Vital Sign Answer Date Recorded Within the past 12 months, y ou worried that your food would run out before you got the money to buy more. Never true 05/25/20 20 Within the past 12 months, t he food you bought just didn't last and you didn't have money to get more. Never true 05/25/2020 PRAPARE - Transportation Answer Date Re corded In the past 12 months, has l ack of transportation kept you from medical appointments or from getting medications? No 09/2019 In the past 12 months, has l ack of transportation kept you from meetings, work, or from getting things needed for daily living? No 05/25/2020 Sexually Active Control Partners Comments Not Currently Other-see comments Male hysterac kesha Comments No Sex and Gender Information Value Date Recorded Sex Assigned at Not on file Legal Sex Female 11:20 PM EDT Gender Identity Not on file Sexual Orientation Not on file COVID-19 Exposure Response Date Recorded In the last 10 days, have yo u been in contact with someone who was confirmed or suspected to have Coronavirus/COVID-19? No / Unsure 06/13/2022 3:19 AM EDT documented as of this encounter Functional Status * Cognitive and Functional Status Question Answer Date of Assessment Author Is the person deaf or does h e/she have serious difficulty hearing? No 11/17/2024 1:20 PM Alice Fritz MA Is the person blind or does he/she have serious difficulty seeing even when wearing glasses? No 11/17/2024 1:20 PM Alice Velasquez MA Does this person have seriou s difficulty walking or climbing stairs? No 11/17/2024 1:20 PM Alice Velasquez MA Does this person have diffic ulty dressing or bathing? No 11/17/2024 1:20 PM Alice Velasquez M A * Is the person deaf or does he/she have serious difficulty hearing? Answer Date of Assessment Author No 12/14/2020 11:19 AM EDT Poonam Strong RMA * Is the person blind or does he/she have serious difficulty seeing even when wearing glasses? Answer Date of Assessment Author No 12/14/2020 11:19 AM EDT Poonam Strong RMA * Does this person have serious difficulty walking or climbing stairs? Answer Date of Assessment Author No 12/14/2020 11:19 AM EDT Poonam Strong RMA * Does this person have difficulty dressing or bathing? Answer Date of Assessment Author No 12/14/2020 11:19 AM EDT Poonam Strong RMA * Because of a physical, mental or emotional condition, does this person have difficulty doing errands alone such as visiting a doctor's office or shopping? Answer Date of Assessment Author No 12/14/2020 11:19 AM EDT Poonam Strong RMA * PHQ-9 Total Score Answer Date of Assessment Author 0 12/22/2024 8:39 AM EDT Poonam Strong RMA * Question Answer Date of Assessment Author Little interest or pleasure in doing things 0 12/22/2024 8:39 AM EDT Poonam Strong RMA Feeling down, depressed, or hopeless 0 12/22/2024 8:39 AM EDT Poonam Strong RMA PHQ-2 Total Score 0 12/22/2024 8:39 AM EDT Poonam Strong RMA * Question Answer Date of Assessment Author Trouble falling or staying asleep, or sleeping too much 0 08/28/2024 12:00 PM EST Poonam Siegel RMA Feeling tired or having sammie le energy 0 08/28/2024 12:00 PM EST Poonam Strong RMA Poor appetite or overeating 0 08/28/2024 12 :00 PM EST Poonam Strong RMA Feeling bad about yourself - or that you are a failure or have let yourself or your family down 0 08/28/2024 12:00 PM EST Poonam Oh RMA Trouble concentrating on thi ngs, such as reading the newspaper or watching television 0 08/28/2024 12:00 PM Poonam Shah RMA Moving or speaking so slowly that other people could have noticed. Or the opposite - being so fidgety or restless that you have been moving around a lot more than usual 0 08/28/2024 12:00 PM Poonam Shah RMA Thoughts that you would be better off , or of hurting yourself in some way 0 08/28/2024 12:00 PM Sanjay Shah RMA * Question Answer Date of Assessment Author Feeling Nervous, Anxious, or on Edge 3 10/26 1:20 PM Alice Velasquez MA Not Being Able to Stop or Co ntrol Worrying 2 11/17/2024 1:20 PM Alice Velasquez MA Worrying too Much About Diff erent Things 2 11/17/2024 1:20 PM Alice Velasquez MA Trouble Relaxing 3 11/17/2024 1:20 PM EST Alice Perez MA Being so Restless That it is Hard to Sit Still 3 11/17/2024 1:20 PM Alice Velasquez MA Becoming Easily Annoyed or Irritable 0 10/26 1:20 PM Alice Velasquez MA Feeling Afraid as if Somethi ng Awful Might Happen 0 11/17/2024 1:20 PM Alice Velasquez MA ORALIA-7 Total Score 13 11/17/2024 1:20 PM Alice Velasquez MA documented as of this encounter Mental Status * Cognitive and Functional Status Question Answer Entry Date Author Because of a physical, menta l or emotional condition, does this person have difficulty doing errands alone such as visiting a doctor's office or shopping? No 11/17/2024 1:20 PM Alice Velasquez MA Because of a physical, menta l or emotional condition, does this person have serious difficulty concentrating, remembering or making decisions? No 11/17/2024 1:20 PM Alice Velasquez MA * Because of a physical, mental or emotional condition, does this person have serious difficulty concentrating, remembering or making decisions? Answer Entry Date Author No 12/14/2020 11:19 AM EDT Poonam Strong RMA documented in this encounter Plan of Treatment Not on file documented as of this encounter Goals Goal Patient Goal Type Associated Problems Recent Progress Patient-Stated? Author Blood Pressure < 140/90 Blood Pressure 118/74(2024 1:11 PM EDT) No Marleny Best RMA BMI (Calculated) < 30 General 38.8(04/30/20 1:11 PM EDT) No Marleny Best RMA Eat better, exercise, reach an ideal body weight General No Poonam Strong RMA Stay Tobacco Free Lifestyle No Poonam Strong RMA HEMOGLOBIN A1C < 7.0 Result Component 5.5( 1:29 PM EDT) No Marleny Best RMA documented as of this encounter Results * (ABNORMAL) HEMOGLOBIN A1C (06/21/2021 9:43 AM EDT) Hgb A1C 5.7(H) 4.2 - 5.6 % 06/21/2021 4:37 PM EDT [facility]. Avg Glucose 117 mg/dL 06/21/2021 4:37 PM EDT [facility] Blood Venipuncture / Unknown 06/21/2021 9:43 AM EDT 06/21/2021 9:43 AM EDT Narrative [facility] - 06/21/2021 4:37 PM EDT REFERENCE RANGE: Normal: 4.0-5.6% Pre-diabetes: 5.7-6.4% Provisional diagnosis of diabetes: >6.4% Hgb F>10% and anything which shortens red cell survival, such as hemolytic anemia, or unstable hemoglobin variants such as HbSS, HbSC, or HbCC, will lower the HbA1c value associated with a given level of glycemic control. us Dia Santoyo NP CHEMISTRY ORDERABLES F inal Result [facility] 1 [facility] , [place] [address] * (ABNORMAL) PROLACTIN LEVEL (06/21/2021 9:43 AM EDT) Prolactin 44.30(H) 4.79 - 23.30 ng/mL 06/21/2021 4:32 PM EDT [facility] [employer] [facility] Blood Venipuncture / Unknown 06/21/2021 9:43 AM EDT 06/21/2021 9:43 AM EDT Narrative [facility] [employer], [facility] - 06/21/2021 4:32 PM EDT Ingestion of victor m doses of biotin (>5 mg/day) taken within 8 hours of drawing blood sample can interfere with this immunoassay test. Dia Santoyo [employer] CHEMISTRY ORDERABLES F inal Result Performing Organization Address [facility] Co de Phone Number [facility] [employer] [address] , [place] [address] * TSH REFLEX (06/21/2021 9:43 AM EDT) Pathologist [facility] TSH Reflex 1.610 0.270 - 4.200 mcIU/mL 06/21/2021 4:20 PM EDT [facility] [employer] [facility] Blood Venipuncture / Unknown 06/21/2021 9:43 AM EDT 06/21/2021 9:43 AM EDT [facility] [employer] [facility] - 06/21/2021 4:20 PM EDT Ingestion of victor m doses of biotin (>5 mg/day) taken within 8 hours of drawing blood sample can interfere with this immunoassay test. Dia Santoyo NP CHEMISTRY ORDERABLES F inal Result Performing Organization Address [facility] Co de Phone Number [facility] [employer] [address] [place] [address] * RENAL FUNCTION PANEL (06/21/2021 9:43 AM EDT) Pathologist [facility] Sodium 140 136 - 145 mmol/L 06/21/2021 4:20 PM EDT [facility] [employer] [facility] Potassium 4.3 3.5 - 5.0 mmol/L 06/21/2021 4:20 PM EDT [facility] Chloride 104 98 - 107 mmol/L 06/21/2021 4:20 PM EDT [facility] Total CO2 25 22 - 29 mmol/L 06/21/2021 4:20 PM EDT [facility] Anion Gap 11 7 - 16 mmol/L 06/21/2021 4:20 PM EDT [facility] Calcium 9.7 8.6 - 10.4 mg/dL 06/21/2021 4:20 PM EDT [facility] Glucose Lvl 95 74 - 100 mg/dL 06/21/2021 4:20 PM EDT [facility] BUN 14 6 - 20 mg/dL 06/21/2021 4:20 PM EDT [facility] Creatinine 0.74 0.51 - 1.30 mg/dL 06/21/2021 4:20 PM EDT [facility] Albumin 4.1 3.5 - 5.2 gm/dL 06/21/2021 4:20 PM EDT [facility] Phosphorus 4.2 2.5 - 4.5 mg/dL 06/21/2021 4:20 PM EDT [facility] GFR Afr Am 111 >=60 mL/min/1.7 3 m2 06/21/2021 4:20 PM EDT [facility] GFR Non Afr Am 96 >=60 mL/min/1.7 3 m2 06/21/2021 4:20 PM T [facility] Comment: This estimated GFR was calculated using CKD-EPI equation which is modified based on ethnicity for Non Americans and Americans. Both results are reported since it is not always possible to determine the patient's ethnicity. This equation should only be used for individuals 18 and older. It has not been validated for use with the elderly (>70 years), women, or in some racial or ethnic subgroups, such as Hispanics. The equation will be less accurate in people with differences in nutritional status or muscle mass. Blood Venipuncture / Unknown 06/21/2021 9:43 AM EDT 06/21/2021 9:43 AM EDT Dia Santoyo NP CHEMISTRY ORDERABLES F inal Result [facility] [address] [facility], [place] [address] [facility] [address] [place] [address] * (ABNORMAL) CBC WITH DIFF (06/21/2021 9:43 AM EDT) WBC 4.9 3.7 - 10.3 x10(3)/mcL 06/21/2021 3:01 PM EDT [facility] RBC 4.56 3.90 - 5.20 x10(6)/mcL 06/21/2021 3:01 PM EDT [facility] Hgb 13.9 11.2 - 15.7 g/dL 06/21/2021 3:01 PM EDT [facility] Hct 41.9 34.0 - 45.0 % 06/21/2021 3:01 PM EDT [facility] MCV 91.9 80.0 - 100.0 fL 06/21/2021 3:01 PM EDT [facility] MCH 30.5 26.0 - 34.0 pg 06/21/2021 3:01 PM EDT [facility] MCHC 33.2 30.7 - 35.5 g/dL 06/21/2021 3:01 PM EDT [facility] RDW 13.5 <=14.9 % 06/21/2021 3:01 PM EDT [facility] Platelet 145(L) 155 - 369 x10(3)/mcL 06/21/2021 3:01 PM EDT [facility] MPV 14.5(H) 8.8 - 12.5 fL 06/21/2021 3:01 PM EDT [facility] Neut Percent 50.1 % 06/21/2021 3:01 PM EDT [facility] Comment:Neutrophils equals s egs plus bands Imm Gran% 0.4 % 06/21/2021 3:01 PM EDT [facility] Comment:Automated count of m etamyelocytes, myelocytes and promyelocytes. Lymph Percent 42.0 % 06/21/2021 3:01 PM EDT [facility] [place] Percent 7.5 % 06/21/2021 3:01 PM EDT [facility] Eos Percent 0.0 % 06/21/2021 3:01 PM EDT [facility] Baso Percent 0.0 % 06/21/2021 3:01 PM EDT [facility], [facility] Neut # 2.5 1.6 - 6.1 x10(3)/[facility] 06/21/2021 3:01 PM EDT [facility] Comment:Neutrophils equals s egs plus bands IMMGRAN# 0.0 0.0 - 0.1 x10(3)/[facility] 06/21/2021 3:01 PM EDT [facility] Comment:Automated count of m etamyelocytes, myelocytes and promyelocytes. An absolute IG <0.1 is reported as 0.0. Lymph # 2.1 1.2 - 3.9 x10(3)/[facility] 06/21/2021 3:01 PM EDT [facility] [place] # 0.4 0.3 - 0.9 x10(3)/[facility] 06/21/2021 3:01 PM EDT [facility] Eos# 0.0 0.0 - 0.5 x10(3)/[facility] 06/21/2021 3:01 PM EDT [facility], [facility] Baso # 0.0 0.0 - 0.1 x10(3)/[facility] 06/21/2021 3:01 PM EDT [facility], [facility] Blood Venipuncture / Unknown 06/21/2021 9:43 AM EDT 06/21/2021 9:43 AM EDT us Dia Santoyo [employer] HEMATOLOGY ORDERABLES Final Result [facility], [facility] [address] [facility] , [place] [address] * (ABNORMAL) LIPID PANEL REFLEX (06/21/2021 9:43 AM EDT) Cholesterol 161 <200 mg/dL 06/21/2021 4:20 PM EDT [facility] Comment: < 200 Desirable 200 - 239 Borderline High >= 240 High Triglyceride 196(H) <150 mg/dL 06/21/2021 4:20 PM EDT [facility] Comment: < 150 Normal 150 - 199 Borderline High 200 - 499 High >= 500 Very High HDL 35(L) >=40 mg/dL 06/21/2021 4:20 PM EDT [facility] [employer] Comment: > 60 Optimal 40 - 60 Acceptable < 40 Low LDL Calculated 92 <100 mg/dL 06/21/2021 4:20 PM EDT [facility] [employer] Non-HDL-C Calculated 126 <=129 mg/dL 06/21/2021 4:20 PM EDT [facility] [employer] Comment: <130 Desirable 130-159 Above Desirable 160-189 Borderline High 190-219 High >= 220 Very High Fasting Specimen? Unknown None 021 4:20 PM EDT [facility] Blood Venipuncture / Unknown 06/21/2021 9:43 AM EDT 06/21/2021 9:43 AM EDT us Dia Santoyo [employer] CHEMISTRY ORDERABLES F inal Result [facility] [address] [facility] , [place] [address] [facility] [address] [place] [address] documented in this encounter Visit Diagnoses Diagnosis Encounter for therapeutic drug level monitoring Encounter for therapeutic drug monitoring documented in this encounter Orders Lab Orders Without Results Count Last Ordered D ate First Ordered Date BASIC METABOLIC PANEL 1 06/20/2021 HEPATIC FUNCTION PANEL 1 06/20/2021 documented in this encounter Care Teams Technical Support Engineer Relationship Specialty Start Date End Date Marshal Crespo DO [address] [place] [address] PCP - General 07/02/10 documented as of this encounter
--- OUTSIDE RECORDS SUMMARY | 2025-04-16 13:15 | XMS_ITS | Encounter Summary ---
Author Organization [place] [address] Care Team Providers Care Tile Finisher Name Role Phone ZakMarshal gomez Primary Care Provider [phone] Reason for Visit * Reason Comments Annual Exam Diabetes Depression Encounter Details Date Type Department Care Team (Late st Contact Info) Description 04/16/2025 1:15 PM EDT Office Visit SE[facility] [address] [place] [address] ZakMarshal gomez DO [address] [place] [address] Annual physical exam (Primary Dx); Cellulitis of left axilla; Type 2 diabetes mellitus with peripheral neuropathy (HCC); Major depressive disorder, recurrent severe without psychotic features (HCC) Social History Tobacco Use Types Packs/Day Years [...] Date Recorded PHQ-2 Total Score 0 12/22/2024 [facility] - Occupational Stress [...] on file documented as of this encounter Last Filed Vital Signs Vital Sign Reading Time Taken Comments Blood Pressure 122/80 04/16/2025 1:09 PM EDT Pulse - - Temperature 36.7 C (98.1 F) 04/16/2025 1:09 PM EDT Respiratory Rate - - Oxygen Saturation - - Inhaled Oxygen Concentration - - Weight 90.7 kg (200 lb) 04/16/2025 1:09 PM EDT Height 154.9 cm (5' 1 ) 04/16/2025 1:09 PM EDT Body Mass Index 37.79 04/16/2025 1:09 PM EDT documented in this encounter Functional Status * Is the [...] Alice Velasquez MA documented in this encounter Ordered Prescriptions Prescription Sig Dispense Quantity Refills Last Filled Start Date End Date LEVOthyroxine (SYNTHROID) 75 mcg Oral Tablet Take 1 Tablet by mouth daily. 04/16/2025 sulfamethoxazole-t rimethoprim (BACTRIM DS) 800-160 mg Oral TabletIndications: Cellulitis of left axilla Take 1 Tablet by mouth every 12 hours for 10 days. 20 Tablet 04/16/2025 04/26/2025 documented in this encounter Progress Notes * Marshal Crespo DO - 04/16/2025 1:15 PM EDTAssociated Problem(s): Major depressive disorder, recurrent severe without psychotic features (HCC) Orders: THYROID STIMULATING HORMONE; Future T4, FREE (THYROXINE); Future * Marshal Crespo DO - 04/16/2025 1:15 PM EDT Vitals: 04/16/25 1309 BP: 122/80 Temp: 98.1 ??F (36.7 ??C) TempSrc: Tympanic Weight: 200 lb (90.7 kg) Height: 5' 1 (1.549 m) Body mass index is 37.79 kg/m??. SUBJECTIVE: Chief Complaint Patient presents with Annual Exam Diabetes Depression HPI: Well Adult: Subjective Ms. Sr is a 54 y.o. female here for an annual wellness visit. Presents today for annual exam. Reports under care of reva silva. Requesting labs Also reports pimple like lesion left axilla Diet: Normal Exercise: Normal Activities of Daily Living: Functional Level: Self-care ADL Limitations: none Social Interaction Screen: Do you have concerns about issues that may impact social interaction such as developmental or behavioral/mental health conditions? no Health Maintenance Due Topic Date Due COVID-19 Vaccine () 05/25/2024 Annual Wellness Exam 02/18/2025 Hemoglobin A1c 02/26/2025 Health Maintenance Topic Date Due COVID-19 Vaccine () 05/25/2024 Annual Wellness Exam 02/18/2025 Hemoglobin A1c 02/26/2025 Pneumococcal Vaccine 50+ (2 of 2 - PCV) 04/17/2025 (Originally 08/30/2019) Colon Cancer Screening 04/24/2025 Influenza Vaccine (1) 05/25/2025 Lipids 08/28/2025 Kidney Health: eGFR 08/28/2025 Kidney Health: uACR 12/22/2025 Diabetic Eye Exam 02/28/2026 Breast Cancer Screening 03/09/2027 DTaP/TDaP/Td (7 - Td or Tdap) 12/21/2030 Zoster Completed Hepatitis B Vaccine Completed Meningococcal B Vaccine Aged Out Immunization History Administered Date(s) Administered DTaP, Unspecified Formulation 01/12/1973, 02/23/1973, 05/04/1973, 06/28/1978 Hepatitis B (Recombinant), Adjuvanted 08/12/2020 Hepatitis B, Adult 02/27/2019, 12/08/2019 Influenza Patient Reported 05/18/2019 Influenza Seasonal Injectable PF 08/28/2024 Influenza Vaccine Quadrivalent 07/26/2018 Influenza Vaccine Quadrivalent PF 06/21/2021, 06/25/2023 Influenza Virus Vaccine Quadrivalant, Flublok 05/25/2020, 06/13/2022 MMR 11/25/1973 Moderna SARS-CoV-2 Booster Vaccine 18+ Yrs (Light Blue Border) 09/13/2021 Moderna SARS-CoV-2 Vaccine 12+ Yrs (Light blue border) 12/15/2020, 01/12/2021 Pneumococcal Polysaccharide 23 Valent 08/30/2018 Polio, Unspecified Formulation 01/12/1973, 05/04/1973, 06/28/1978 Td, Unspecified Formulation 04/14/1988 Tdap 01/03/2016, 12/21/2020 Zoster Recombinant 11/28/2022, 06/25/2023 Patient Active Problem List Diagnosis Asthma Seasonal allergies Renal cyst Type 2 diabetes mellitus with hypercholesterolemia (HCC) Hypercholesterolemia Migraine Sensorineural hearing loss (SNHL) of both ears Depression with anxiety Endometriosis Major depressive disorder, recurrent severe without psychotic features (HCC) Tinnitus, bilateral PTSD (post-traumatic stress disorder) Tobacco use disorder Other chest pain Syncope and collapse Mallet finger of left hand Past Medical History: Diagnosis Date Allergy Anxiety Asthma year round, uses inhaler Back pain Bipolar 1 disorder (HCC) Depression on meds Diabetes mellitus (HCC) diet controlled Heartburn Hyperlipidemia Irritable bowel syndrome Kidney disease Migraine Motion sickness Renal cyst Rheumatoid arthritis (HCC) Sleep apnea uses CPAP Syncope and collapse last episode summer Thyroid disease Ulcer don't no when Past Surgical History: Procedure Laterality Date APPENDECTOMY BREAST SURGERY Left mass removal CHOLECYSTECTOMY FINGER SURGERY Left 10/07/2020 left small finger nerve repair; Surgeon: Everette Seth MD; Location: [facility]; Service: Hand HYSTERECTOMY SKIN GRAFT Left 10/13/2021 LEFT SMALL FINGER TISSUE REARRANGEMENT ; Surgeon: Everette Seth MD; Location: [facility]; Service: Orthopedics AIME AND BSO Allergies Allergen Reactions Adhesive Other (See Comments) dahl my skin , bandaids; paper tape is OK Codeine Rash Zocor [Simvastatin] Rash Current Outpatient Medications on File Prior to Visit Medication Sig Dispense Refill AIMOVIG AUTOINJECTOR 140 mg/mL SubQ Auto-Injector Inject 1 ml under the skin once every 30 days. 1 mL 5 amLODIPine (NORVASC) 2.5 mg Oral Tablet Take 1 Tablet by mouth once daily. 30 Tablet 0 aspirin 81 mg Oral Tablet, Delayed Release (E.C.) Take 1 Tablet by mouth daily. 30 Tablet 11 BREZTRI AEROSPHERE 160-9-4.8 mcg/actuation Inhl HFA Aerosol Inhaler Inhale 2 Puffs into the lungs 2times daily. 10.7 g 3 Eyhmzkcnfqtilke-Bteaoodtp-RT 2-30-10 mg/5 mL Oral Syrup Take 10 mL by mouth every 4 hours as needed. 240 mL 0 busPIRone (BUSPAR) 5 mg Oral Tablet Take 5 mg by mouth 3 times daily. desvenlafaxine succinate (PRISTIQ) 100 mg Oral Tablet Sustained Release 24 hr diclofenac (VOLTAREN) 75 mg Oral Tablet, Delayed Release (E.C.) Take 1 Tablet by mouth 2 times daily with meals as needed. 60 Tablet 0 dicyclomine (BENTYL) 20 mg Oral Tablet Take 1 Tablet by mouth 3 times daily as needed. 90 Tablet 2 doxepin (SINEQUAN) 25 mg Oral Capsule Take 25 mg by mouth nightly. at bedtime fUROsemide (LASIX) 20 mg Oral Tablet Take 1 Tablet by mouth daily as needed. 100 Tablet 2 gabapentin (NEURONTIN) 800 mg Oral Tablet Take 1 Tablet by mouth 3 times daily. 90 Tablet 2 hydrOXYzine (VISTARIL) 25 mg Oral Capsule TAKE 2 CAPSULES BY MOUTH AT BEDTIME AND 1 CAPSULE BY MOUTH DAILY NEEDED FOR ANXIETY. loratadine (CLARITIN) 10 mg Oral Tablet Take 1 Tablet by mouth daily. 30 Tablet 3 methocarbamoL (ROBAXIN) 500 mg Oral Tablet Take 2 Tablets by mouth 3 times daily as needed for muscle spasms. 120 Tablet 2 omeprazole (PRILOSEC) 40 mg Oral Capsule, Delayed Release(E.C.) Take 1 Capsule by mouth once daily.100 Capsule 2 pravastatin (PRAVACHOL) 40 mg Oral Tablet Take 1 Tablet by mouth every evening. 100 Tablet 2 prazosin (MINIPRESS) 1 mg Oral Capsule Take 1 mg by mouth nightly. promethazine (PHENERGAN) 25 mg Oral Tablet Take 1 Tablet by mouth every 6 hours as needed for Nausea. 30 Tablet 2 REXULTI 2 mg Oral risperiDONE (RISPERDAL) 2 mg Oral Tablet Take 2 mg by mouth nightly. SUMAtriptan (IMITREX) 100 mg Oral Tablet Take 1 Tablet by mouth at onset of migraine. MAY REPEAT in2 hours if needed. 15 Tablet 2 SYMBICORT 160-4.5 mcg/actuation Inhl HFA Aerosol Inhaler Inhale 2 Puffs into the lungs 2 times daily. varenicline tartrate (CHANTIX) 1 mg Oral Tablet Take 1 Tablet by mouth 2 times daily 56 Tablet 2 VENTOLIN HFA 90 mcg/actuation Inhl HFA Aerosol Inhaler Inhale 2 Puffs into the lungs every 6 hours as needed for wheezing. 18 g 0 No current facility-administered medications on file prior to visit. Social History Socioeconomic History Marital status: Legally Spouse name: None Number of children: 5 Years of education: None Highest education level: None Tobacco Use Smoking status: Every Day Current packs/day: 0.50 Average packs/day: 0.5 packs/day for 16.7 years (8.3 ttl pk-yrs) Types: Cigarettes Start date: 05/26/2020 Passive exposure: Current Smokeless tobacco: Never Tobacco comments: orig started 06/04/88, started again 10/12, quit 12/12 Vaping Use Vaping status: Never Used Substance and Sexual Activity Alcohol use: Not Currently Comment: social; quit Drug use: No Sexual activity: Not Currently Partners: Male control/protection: Other-see comments Comment: hysteractomy Social Drivers of Health Financial Resource Strain: Low Risk (05/25/2020) Overall Financial Resource Strain (CARDIA) Difficulty of Paying Living Expenses: Not hard at all Food Insecurity: No Food Insecurity (05/25/2020) Hunger Vital Sign Worried About Running Out of Food in the Last Year: Never true Ran Out of Food in the Last Year: Never true Transportation Needs: No Transportation Needs (05/25/2020) PRAPARE - Transportation Lack of Transportation (Medical): No Lack of Transportation (Non-Medical): No Physical Activity: Sufficiently Active (12/15/2020) Exercise Vital Sign Days of Exercise per Week: 7 days Minutes of Exercise per Session: 60 min Stress: Stress Concern Present (12/15/2020) [employer] [facility] [employer] - Occupational Stress Questionnaire Feeling of Stress : To some extent Family History Problem Relation Age of Onset Arthritis Mother Asthma Mother High Blood Pressure Mother High Cholesterol Mother Breast Cancer Mother Ovarian Cancer Mother Arthritis Maternal Grandmother Heart Disease Maternal Grandmother High Blood Pressure Maternal Grandmother High Cholesterol Maternal Grandmother Stroke Maternal Grandmother Cancer Maternal Uncle spin Cancer Maternal Uncle lung Cancer Maternal Grandfather skin Diabetes Father Substance Abuse Brother No results found. No results found for this visit on 04/16/25. Patient Care Team: Marshal Crespo DO as PCP - General Lab Results Component Value Date WBC 8.6 02/19/2024 HGB 14.0 02/19/2024 HCT 44.2 02/19/2024 PLT 196 02/19/2024 CHOLESTEROL 182 08/28/2024 TRIG 243 (H) 08/28/2024 HDL 37 (L) 08/28/2024 LDLCALC 103 (H) 08/28/2024 ALT 19 08/28/2024 AST 31 08/28/2024 NA 137 08/28/2024 K 4.4 08/28/2024 CL 101 08/28/2024 CREATININE 0.75 08/28/2024 BUN 7 08/28/2024 CO2 25 08/28/2024 TSH 1.360 02/19/2024 INR 1.01 05/08/2011 GLUCOSE 99 07/20/2011 GLU 116 (H) 08/28/2024 HGBA1C 6.0 (H) 08/28/2024 MICROALBUR 30 02/19/2024 TSHREFLEX 1.610 06/21/2021 Additional issues addressed today: Diabetes: Cordelia following up today for diabetes. Current symptoms/problems include none. Current monitoring regimen: none Home blood sugar records: N/A Any episodes of hypoglycemia? no On insulin? No Weight trend: Body mass index is 37.79 kg/m??. Wt Readings from Last 3 Encounters: 04/16/25 200 lb (90.7 kg) 12/22/24 206 lb (93.4 kg) 11/17/24 207 lb (93.9 kg) A1c trend: Lab Results Component Value Date HGBA1C 6.0 (H) 08/28/2024 HGBA1C 5.7 02/19/2024 HGBA1C 5.9 (H) 06/25/2023 Renal trend: Lab Results Component Value Date GFRAFRAM 111 06/21/2021 GFRAFRAM 118 02/15/2021 GFRAFRAM 121 01/05/2021 Lab Results Component Value Date GFRNONAFRAM 96 06/21/2021 GFRNONAFRAM 103 02/15/2021 GFRNONAFRAM 105 01/05/2021 Lab Results Component Value Date GFRCKDEPI 96 08/28/2024 GFRCKDEPI 86 02/19/2024 GFRCKDEPI 87 11/28/2022 Lipid trend: Lab Results Component Value Date LDLCALC 103 (H) 08/28/2024 Review of Systems Constitutional: Negative for appetite change, chills, fatigue and fever. HENT: Negative for congestion, ear pain, facial swelling, postnasal drip, rhinorrhea, sinus pressure, sneezing, sore throat, tinnitus and trouble swallowing. Eyes: Negative for discharge and visual disturbance. Respiratory: Negative for cough, chest tightness, shortness of breath and wheezing. Cardiovascular: Negative for chest pain, palpitations and leg swelling. Gastrointestinal: Negative for abdominal distention, abdominal pain, blood in stool, constipation, diarrhea, nausea and vomiting. Musculoskeletal: Negative for arthralgias, back pain, joint swelling, myalgias and neck pain. Skin: Negative for color change and rash. Neurological: Negative for dizziness, speech difficulty, weakness, light- headedness, numbness and headaches. Hematological: Negative for adenopathy. Does not bruise/bleed easily. Psychiatric/Behavioral: Negative for agitation, behavioral problems and confusion. The patient is not nervous/anxious. All other systems reviewed and are negative. OBJECTIVE: Physical Exam Constitutional: Appearance: Normal appearance. She is well-developed. HENT: Right Ear: External ear normal. Left Ear: External ear normal. Mouth/Throat: Pharynx: No oropharyngeal exudate. Eyes: General: No scleral icterus. Conjunctiva/sclera: Conjunctivae normal. Pupils: Pupils are equal, round, and reactive to light. Neck: Thyroid: No thyromegaly. Cardiovascular: Rate and Rhythm: Normal rate and regular rhythm. Heart sounds: Normal heart sounds. No murmur heard. Pulmonary: Effort: Pulmonary effort is normal. No respiratory distress. Breath sounds: Normal breath sounds. No wheezing or rales. Abdominal: General: Bowel sounds are normal. There is no distension. Palpations: Abdomen is soft. Tenderness: There is no abdominal tenderness. There is no guarding or rebound. Musculoskeletal: General: Normal range of motion. Cervical back: Normal range of motion and neck supple. Lymphadenopathy: Cervical: No cervical adenopathy. Skin: General: Skin is warm and dry. Findings: Erythema present. No rash. Comments: Erythema noted to left axilla Neurological: Mental Status: She is alert and oriented to person, place, and time. Cranial Nerves: No cranial nerve deficit. Motor: No abnormal muscle tone. Coordination: Coordination normal. Deep Tendon Reflexes: Reflexes are normal and symmetric. Reflexes normal. Psychiatric: Behavior: Behavior normal. Thought Content: Thought content normal. Judgment: Judgment normal. Assessment & Plan Annual physical exam Orders: THYROID STIMULATING HORMONE; Future T4, FREE (THYROXINE); Future Cellulitis of left axilla Orders: sulfamethoxazole-trimethoprim (BACTRIM DS) 800-160 mg Oral Tablet; Take 1 Tablet by mouth every 12 hours for 10 days. Type 2 diabetes mellitus with peripheral neuropathy (HCC) Orders: LIPID SCREEN; Future CBC; Future HEMOGLOBIN A1C; Future HEPATIC FUNCTION PANEL; Future BASIC METABOLIC PANEL; Future Major depressive disorder, recurrent severe without psychotic features (HCC) Orders: THYROID STIMULATING HORMONE; Future T4, FREE (THYROXINE); Future Above problems were discussed with patient and all are stable except otherwise noted. Continue medications as prior. Refills done as requested. Blood work done. Will adjust medications by phone as needed based on lab results and as noted. Follow up for any changes and as directed Educated patient regarding the care plan and instructions listed on the After Visit Summary [AVS] for today's visit. The patient verbalized full understanding of the care plan and instructions given on the AVS for today's visit. documented in this encounter Plan of Treatment Not on file documented as of this encounter Goals Goal Patient Goal Type Associated Problems Recent Progress Patient-Stated? Author Blood Pressure < 140/90 Blood Pressure 118/74(2024 1:11 PM EDT) No Marleny Best RMA BMI (Calculated) < 30 General 38.8(04/30/20 25 1:11 PM EDT) No Marleny Best RMA Eat better, exercise, reach an ideal body weight General No Poonam Strong RMA Stay Tobacco Free Lifestyle Poonam Weber RMA HEMOGLOBIN A1C < 7.0 Result Component 5.5( 1:29 PM EDT) No Marleny Best RMA documented as of this encounter Procedures Procedure Name Priority Date/Time Associated Diagnosis Comments CBC Routine 04/16/2025 1:29 PM EDT Type 2 diabetes mellitus with peripheral neuropathy (HCC) THYROID STIMULATING HORMONE Routine 04/16/2025 1:29 PM EDT Annual physical exam Major depressive disorder, recurrent severe without psychotic features (HCC) T4, FREE (THYROXINE) Routine 04/16/2025 1:29 PM EDT Annual physical exam Major depressive disorder, recurrent severe without psychotic features (HCC) HEMOGLOBIN A1C Routine 04/16/2025 1:29 PM EDT Type 2 diabetes mellitus with peripheral neuropathy (HCC) HEPATIC FUNCTION PANEL Routine 04/16/2025 1:29 PM EDT Type 2 diabetes mellitus with peripheral neuropathy (HCC) LIPID SCREEN Routine 04/16/2025 1:29 PM EDT Type 2 diabetes mellitus with peripheral neuropathy (HCC) BASIC METABOLIC PANEL Routine 04/16/2025 1:29 PM EDT Type 2 diabetes mellitus with peripheral neuropathy (HCC) documented in this encounter Results * (ABNORMAL) LIPID SCREEN (04/16/2025 1:29 PM EDT) Cholesterol 148 <200 mg/dL 04/16/2025 11:57 PM EDT [facility] Comment: < 200 Desirable 200 - 239 Borderline High >= 240 High Triglyceride 173(H) <150 mg/dL 04/16/2025 11:57 PM EDT [facility] Comment: < 150 Normal 150 - 199 Borderline High 200 - 499 High >= 500 Very High HDL 33(L) >=40 mg/dL 04/16/2025 11:57 PM EDT [facility] Comment: > 60 Optimal 40 - 60 Acceptable < 40 Low LDL Calculated 85 <100 mg/dL 04/16/2025 11:57 PM EDT [facility] Comment: < 100 Optimal 100 - 129 Near or above optimal 130 - 159 Borderline High 160 - 189 High >= 190 Very High The National Institutes of Health (NIH) equation is used for all lipid panels that report calculated LDL (LDL-C). Non-HDL-C Calculated 115 <=129 mg/dL 04/16/2025 11:57 PM EDT [facility] Comment: <130 Desirable 130-159 Above Desirable 160-189 Borderline High 190-219 High >= 220 Very High Fasting Specimen? Unknown None 025 11:57 PM EDT [facility] Blood VENOUS BLOOD / Unknown Venipuncture / Unknown 04/16/2025 1:29 PM EDT 04/16/2025 1:29 PM EDT us Marshal Crespo DO CHEMISTRY ORDERABLES Final Resu lt [facility] [address] [facility] , [address] [place] [id number] * (ABNORMAL) BASIC METABOLIC PANEL (04/16/2025 1:29 PM EDT) Sodium 139 136 - 145 mmol/L 04/16/2025 11:57 PM EDT [facility] Potassium 3.9 3.5 - 5.0 mmol/L 04/16/2025 11:57 PM EDT [facility] Chloride 104 98 - 107 mmol/L 04/16/2025 11:57 PM EDT [facility] Total CO2 24 22 - 29 mmol/L 04/16/2025 11:57 PM EDT [facility] Anion Gap 11 7 - 16 mmol/L 04/16/2025 11:57 PM EDT [facility] Calcium 9.7 8.6 - 10.4 mg/dL 04/16/2025 11:57 PM EDT [facility] Glucose Lvl 124(H) 70 - 99 mg/dL 04/16/2025 11:57 PM EDT [facility] BUN 7 6 - 20 mg/dL 04/16/2025 11:57 PM EDT [facility] Creatinine 0.73 0.51 - 1.30 mg/dL 04/16/2025 11:57 PM EDT [facility] eGFR (CKD-EPIcr 2020) 98 >=60 mL/min/1.7 3 m2 04/16/2025 11:57 PM EDT [facility] Comment:Estimated GFR was ca lculated using the CKD-EPIcr (2020) equation refit without race. The equation is recommended by the National Kidney Foundation - [place] [employer] Neph[employer] Task Force. Blood VENOUS BLOOD / Unknown Venipuncture / Unknown 04/16/2025 1:29 PM EDT 04/16/2025 1:29 PM EDT us Marshal Zak DO CHEMISTRY ORDERABLES Final Resu lt [facility], [facility] [address] [facility] , [place] [address] * (ABNORMAL) HEPATIC FUNCTION PANEL (04/16/2025 1:29 PM EDT) Total Protein 6.9 6.4 - 8.3 gm/dL 04/16/2025 11:57 PM EDT [facility] Albumin 3.9 3.5 - 5.2 gm/dL 04/16/2025 11:57 PM EDT [facility] Bili Direct <0.2 0.0 - 0.3 mg/dL 04/16/2025 11:57 PM EDT [facility] Bili Total 0.3 0.2 - 1.3 mg/dL 04/16/2025 11:57 PM EDT [facility] AST 15 <=40 U/L 04/16/2025 11:57 PM EDT [facility] ALT 8 <=41 U/L 04/16/2025 11:57 PM EDT [facility] Alk Phos 124(H) 36 - 123 U/L 04/16/2025 11:57 PM EDT [facility] Blood VENOUS BLOOD / Unknown Venipuncture / Unknown 04/16/2025 1:29 PM EDT 04/16/2025 1:29 PM EDT us Marshal Zak DO CHEMISTRY ORDERABLES Final Resu lt Performing Organization Address City/[facility]/ZIP Co de Phone Number [facility], [facility] [address] [facility] , [place] [address] * HEMOGLOBIN A1C (04/16/2025 1:29 PM EDT) [facility] Hgb A1C 5.5 4.2 - 5.6 % 04/16/2025 9:00 PM EDT [facility], [facility] Est. Avg Glucose 111 mg/dL 04/16/2025 9:00 PM EDT [facility] Blood VENOUS BLOOD / Unknown Venipuncture / Unknown 04/16/2025 1:29 PM EDT 04/16/2025 1:29 PM EDT Narrative [facility], [facility] - 04/16/2025 9:00 PM EDT REFERENCE RANGE: Normal: 4.0-5.6% Pre-diabetes: 5.7-6.4% Provisional diagnosis of diabetes: >6.4% Hgb F>10% and anything which shortens red cell survival, such as hemolytic anemia, or unstable hemoglobin variants such as HbSS, HbSC, or HbCC, will lower the HbA1c value associated with a given level of glycemic control. Marshal Crespo DO CHEMISTRY ORDERABLES Final Resu lt [facility], [facility] [address] [facility] , [place], [place] [id number] * CBC (04/16/2025 1:29 PM EDT) [facility] WBC 7.7 3.7 - 10.3 x10(3)/mcL 04/16/2025 8:39 PM EDT [facility] RBC 4.75 3.90 - 5.20 x10(6)/mcL 04/16/2025 8:39 PM EDT [facility] Hgb 14.2 11.2 - 15.7 g/dL 04/16/2025 8:39 PM EDT [facility], [facility] Hct 44.0 34.0 - 45.0 % 04/16/2025 8:39 PM EDT [facility] MCV 92.6 80.0 - 100.0 fL 04/16/2025 8:39 PM EDT [facility] MCH 29.9 26.0 - 34.0 pg 04/16/2025 8:39 PM EDT [facility] MCHC 32.3 30.7 - 35.5 g/dL 04/16/2025 8:39 PM EDT [facility], [facility] RDW 13.1 <=14.9 % 04/16/2025 8:39 PM EDT [facility], [facility] Platelet 221 155 - 369 x10(3)/mcL 04/16/2025 8:39 PM EDT [facility] MPV 12.3 8.8 - 12.5 fL 04/16/2025 8:39 PM EDT [facility] Blood VENOUS BLOOD / Unknown Venipuncture / Unknown 04/16/2025 1:29 PM EDT 04/16/2025 1:29 PM EDT [facility] DO HEMATOLOGY ORDERABLES Final Res ult Performing Organization Address City/[facility]/ZIP Co de Phone Number [facility], [facility] [address] [facility] , [place] [address] * T4, FREE (THYROXINE) (04/16/2025 1:29 PM EDT) [facility] Free T4 1.29 0.80 - 1.80 ng/dL 04/17/2025 12:01 AM EDT [facility] Blood VENOUS BLOOD / Unknown Venipuncture / Unknown 04/16/2025 1:29 PM EDT 04/16/2025 1:29 PM EDT Narrative [facility], [facility] - 04/17/2025 12:01 AM EDT Ingestion of victor m doses of biotin (>5 mg/day) taken within 8 hours of drawing blood sample can interfere with this immunoassay test. [facility] Center[facility] [place] [facility] DO CHEMISTRY ORDERABLES Final Resu lt Performing Organization Address City/[facility]/ZIP Co de Phone Number [facility] [address] [facility] , [place] [address] * (ABNORMAL) THYROID STIMULATING HORMONE (04/16/2025 1:29 PM EDT) TSH 0.171(L) 0.270 - 4.200 mcIU/mL 04/17/2025 12:01 AM EDT [facility] Blood VENOUS BLOOD / Unknown Venipuncture / Unknown 04/16/2025 1:29 PM EDT 04/16/2025 1:29 PM EDT Narrative [facility] - 04/17/2025 12:01 AM EDT Ingestion of victor m doses of biotin (>5 mg/day) taken within 8 hours of drawing blood sample can interfere with this immunoassay test. Marshla Zak CASTELLANO CHEMISTRY ORDERABLES Final Resu lt [facility] [address] [facility] , [address] [address] documented in this encounter Visit Diagnoses Diagnosis Annual physical exam- Primary Routine general medical examination at a health care facility Cellulitis of left axilla Cellulitis and abscess of upper arm and forearm Type 2 diabetes mellitus with peripheral neuropathy (HCC) Major depressive disorder, recurrent severe without psychotic features (HCC) Major depressive disorder, recurrent episode, severe, without mention of psychotic behavior documented in this encounter Discontinued Medications Medication Sig Discontinue Reason Start Date End Da te LEVOthyroxine (SYNTHROID) 75 mcg Oral Tablet Take 1 Tablet by mouth daily. Must make appointment for further refill 09/25/2024 04/16/2025 documented as of this encounter Orders Lab Orders Without Results Count Last Ordered D ate First Ordered Date LIPID SCREEN 1 04/16/2025 documented in this encounter Care Teams Tile Finisher Relationship Specialty Start Date End Date Marshal Crespo DO [address] [place] [id number] PCP - General 07/02/10 documented as of this encounter
--- OUTSIDE RECORDS SUMMARY | 2025-04-30 13:15 | XMS_ITS | Encounter Summary ---
Author Organization [place] [address] Care Team Providers Care Locksmith Helper Name Role Phone Marshal Crespo Primary Care Provider [phone] Reason for Visit * Reason Comments Neck Pain Encounter Details Date Type Department Care Team (Late st Contact Info) Description 04/30/2025 1:15 PM EDT Office Visit [facility] [address] [place] [address] Marshal Crespo DO [address] [place], [place] [id number] Cervicalgia (Primary Dx); Degeneration of intervertebral disc of lumbar region with discogenic back pain Social History Tobacco Use Types Packs/Day Years Used Date Smoking Tobacco: Every Day Cigarettes 0.5 16.8 Started: 05/26/2020 Passive Smoke Exposure: Current Smokeless Tobacco: Never Tobacco Cessation:Ready to Q uit: No; Counseling Given: Not Answered Comments:orig started 06/04/88, started again 10/12, quit 12/12 Alcohol Use [...] Date Recorded PHQ-2 Total Score 0 12/22/2024 [facility] [place] [facility] - Occupational Stress [...] Sign Reading Time Taken Comments Blood Pressure 118/74 04/30/2025 1:11 PM EDT Pulse - - Temperature - - Respiratory Rate - - Oxygen Saturation - - Inhaled Oxygen Concentration - - Weight 93 kg (205 lb) 04/30/2025 1:11 PM EDT Height 154.9 cm (5' 1 ) 04/30/2025 1:11 PM EDT Body Mass Index 38.73 04/30/2025 1:11 PM EDT documented in this encounter Functional [...] Alice Velasquez MA documented in this encounter Progress Notes * Marshal Crespo DO - 04/30/2025 1:15 PM EDT Vitals: 04/30/25 1311 Weight: 205 lb (93 kg) Height: 5' 1 (1.549 m) Body mass index is 38.73 kg/m??. SUBJECTIVE: Chief Complaint Patient presents with Neck Pain HPI: Hospital Follow-Up: Hospital/ER Follow-Up: Ms. Sr is a 54 y.o. female here for hospital follow up. She was admitted 04/26/25 and discharged 04/26/25 with a diagnosis of Neck pain. Presents today for eval of left side neck pain. States I woke up in pain denies trauma. Also presents for f/u chronic back pain. Requesting letter Hospital discharge summary, most recent labs and imaging, admission notes reviewed: Yes She is compliant with discharge medications / treatment. She is not having medication side effects. Review of Systems Constitutional: Negative for fatigue and fever. HENT: Negative for congestion and sinus pressure. Respiratory: Negative for cough and shortness of breath. Gastrointestinal: Negative for abdominal pain, diarrhea, nausea and vomiting. Musculoskeletal: Negative for back pain. Skin: Negative for rash. Psychiatric/Behavioral: The patient is not nervous/anxious. OBJECTIVE: Physical Exam Constitutional: Appearance: Normal appearance. Neck: Comments: Left side of neck tender to palpation Pain with left rotation Cardiovascular: Rate and Rhythm: Normal rate and regular rhythm. Heart sounds: Normal heart sounds. No murmur heard. Pulmonary: Effort: Pulmonary effort is normal. Breath sounds: Normal breath sounds. Abdominal: General: There is no distension. Palpations: Abdomen is soft. Musculoskeletal: Cervical back: No tenderness. Neurological: Mental Status: She is alert and oriented to person, place, and time. Psychiatric: Mood and Affect: Mood normal. Behavior: Behavior normal. Assessment & Plan Cervicalgia Orders: methylPREDNISolone acetate (DEPO-Medrol) injection 80 mg ketorolac (TORADOL) injection 60 mg heat, stretch Monitor glucose levels Degeneration of intervertebral disc of lumbar region with discogenic back pain Orders: methylPREDNISolone acetate (DEPO-Medrol) injection 80 mg ketorolac (TORADOL) injection 60 mg Above problems were discussed with patient and [...] as of this encounter Visit Diagnoses Diagnosis Cervicalgia- Primary Degeneration of intervertebral disc of lumbar region with discogenic back pain documented in this encounter Administered Medications Inactive Administered Medications - up to 1 most recent administrations Medication Order MAR Action Action Date Dose Rate Site ketorolac (TORADOL) injection 60 mg 60 mg, Intramuscular, ONCE, 1 dose, On [place] 04/30/25 at 1345, For IM Administration: Give undiluted, slowly and deeply into the muscle., Dx: 1. Cervicalgia 2. Degeneration of intervertebral disc of lumbar region with discogenic back painIndications:Cervicalgi a,Degeneration of intervertebral disc of lumbar region with discogenic back pain Given 04/30/2025 1:44 PM EDT 60 mg Right upper gluteus methylPREDNISolone acetate (DEPO-Medrol) injection 80 mg 80 mg, Intramuscular, ONCE, 1 dose, On [place] 04/30/25 at 1345, Dx: 1. Cervicalgia 2. Degeneration of intervertebral disc of lumbar region with discogenic back painIndications:Cervicalgi a,Degeneration of intervertebral disc of lumbar region with discogenic back pain Given 04/30/2025 1:45 PM EDT 80 mg Right upper gluteus documented in this encounter Historical Medications * This list may reflect changes made after this encounter. CLEARLAX 17 gram/dose Oral Powder Take by mouth. 04/22/2025 FIBER THERAPY, M-CELL/SUGAR, Oral Powder Take by mouth daily. 04/23/2025 Lidocaine (LMX) 4 % Top Cream Apply topically as needed. 04/27/2025 added in this encounter Care Teams Locksmith Helper Relationship Specialty Start Date End Date Marshal Crespo DO [address] [place] [address] PCP - General 07/02/10 documented as of this encounter
[2025-05-10] VITALS (8 sets, daily range): BP systolic 113–132; BP diastolic 66–70; PULSE 67–78; RESP 16–18; TEMP 36.3; O2SAT 95–98; BMI 38.7
--- OUTSIDE RECORDS SUMMARY | 2025-05-10 19:38 | XMS_ITS | Clinical Summary ---
Author Organization [facility] Address [address] [place] [address] Phone Care Team Providers Care Rack Carrier Name Role Phone Marshal Crespo DO Primary Care Provider [phone] Allergies Active Allergy Reactions Criticality Noted Date [...] mouth 2 times daily 56 Tablet 2 Active pravastatin (PRAVACHOL) 40 mg Oral Tablet Take 1 Tablet by mouth every evening. 100 Tablet 2 Active Brompheniramine-P seudoeph-DM 2-30-10 mg/5 mL Oral SyrupIndications: Acute bacterial sinusitis Take 10 mL by mouth every 4 hours as needed. 240 mL Active AIMOVIG AUTOINJECTOR 140 mg/mL SubQ Auto-InjectorIndi cations:History of migraine Inject 1 ml under the skin once every 30 days. 1 mL 5 Active VENTOLIN HFA 90 mcg/actuation Inhl HFA Aerosol Inhaler Inhale 2 Puffs into the lungs every 6 hours as needed for wheezing. 18 g Active LEVOthyroxine (SYNTHROID) 75 mcg Oral Tablet [...] hours if needed. 9 Tablet 2 Active Lidocaine (LMX) 4 % Top Cream Apply topically as needed. Active FIBER THERAPY, M-CELL/SUGAR, Oral Powder Take by mouth daily. Active CLEARLAX 17 gram/dose Oral Powder Take by mouth. Active naproxen (NAPROSYN) 500 mg Oral Tablet Take 1 Tablet by mouth 2 times daily with meals as needed. 60 Tablet Active omeprazole (PRILOSEC) 40 mg Oral Capsule, Delayed Release(E.C.)Amarliys cations:Gastroeso phageal reflux disease with esophagitis, unspecified whether hemorrhage Take 1 Capsule by mouth once daily. 100 Capsule 2 024 2024 Discontinued fUROsemide (LASIX) 20 mg Oral Tablet Take 1 Tablet by mouth daily as needed. 100 Tablet 2 024 2024 Discontinued LEVOthyroxine (SYNTHROID) 75 mcg [...] daily. 30 Tablet 3 025 2024 Discontinued SUMAtriptan (IMITREX) 100 mg Oral Tablet Take 1 Tablet by mouth at onset of migraine. MAY REPEAT in 2 hours if needed. 15 Tablet 2 025 2024 Discontinued sulfamethoxazole- trimethoprim (BACTRIM DS) 800-160 mg Oral TabletIndications :Cellulitis of left axilla Take 1 Tablet by mouth every 12 hours for 10 days. 20 Tablet 025 2024 Hospital, Clinic, or Other Facility Administered Medication Ordered Dose Route Frequency Start Date End Date Status methylPREDNISolone acetate (DEPO-Medrol) injection 80 mgIndications:Cervicalgia,D egeneration of intervertebral disc of lumbar region with discogenic back pain 80 mg IM ONCE 04/30/2025 04/30/2025 Ende d ketorolac (TORADOL) injection 60 mgIndications:Cervicalgia,D egeneration of intervertebral disc of lumbar region with discogenic back pain 60 mg IM ONCE 04/30/2025 04/30/2025 Ende d Active Problems Problem Noted Date Diagnosed Date Mallet finger of left hand 08/30/2021 Overview (08/30/2021): Added automatically from request for surgery [id number] Other chest pain 02/02/2021 Syncope and collapse [...] Encounters Date Type Department Care Team Description 04/30/2025 1:15 PM EDT Office Visit [facility] [address] [place] [address] Marshal Crespo, Cervicalgia (Primary Dx); Degeneration of intervertebral disc of lumbar region with discogenic back pain 04/22/2025 Refill [facility] [address] [place] [address] Marshal Crespo, Medication Refill 04/17/2025 Results Follow-Up [facility] [address] [place] [address] Marshal Crespo DO LIPID SCREEN, THYROID STIMULATING HORMONE, T4, FREE (THYROXINE), Additional followed-up results: 4 04/16/2025 1:15 PM EDT Office Visit [facility] [address] [place] [address] Marshal Crespo DO Annual physical exam (Primary Dx); Cellulitis of left axilla; Type 2 diabetes mellitus with peripheral neuropathy (HCC); Major depressive disorder, recurrent severe without psychotic features (HCC) 03/31/2025 Refill [facility] [address] [place] [address] Marshal Crespo, DO Medication Refill 03/09/2025 10:05 AM EDT - 03/09/2025 11:59 PM EDT Hospital Encounter [facility] [address] [place] [address] Marshal Crespo, DO Screening mammogram for breast cancer Discharge Disposition: Home or Self Care 02/28/2025 Refill [facility] [place] [facility] [address] [facility] [place] [address] Marshal Crespo, DO Medication Refill from Last 3 Months Immunizations [...] nerve repair; Surgeon: Everette Seth MD; Location: [facility]; Service: Hand Medical devices from this surgery are in the Medical Devices section. BREAST SURGERY Left mass removal SKIN GRAFT 10/13/2021 Left LEFT SMALL FINGER TISSUE REARRANGEMENT ; Surgeon: Everette Seth MD; Location: [facility]; Service: Orthopedics HYSTERECTOMY Medical History Medical History [...] Grandmother diana eng High Cholesterol Maternal Grandmother dianajuly eng Stroke Maternal Grandmother dianajuly eng Cancer Maternal Uncle 1 shayy eng spin Cancer Maternal Uncle 2 tj eng lung Arthritis Mother francisco javier rhonda Asthma Mother francisco javier rhonda Breast Cancer Mother francisco javier rhonda High Blood Pressure Mother francisco javier rhonda High Cholesterol Mother francisco javier rhonda Ovarian Cancer Mother francisco javier rhonda Relation Name Status Comments Brother arnold sr Father hattie sr Maternal Grandfather tanesha eng Maternal Grandmother diana eng Maternal Uncle 1 shayy eng Maternal Uncle 2 tj eng Mother francisco javierálvaro sr Social History Tobacco Use Types Packs/Day [...] Date Recorded PHQ-2 Total Score 0 12/22/2024 [facility] [place] of Occupat ional Health - Occupational Stress [...] Pressure 118/74 04/30/2025 1:11 PM EDT Pulse 88 06/01/2022 2:46 PM EDT Temperature 36.7 C (98.1 F) 04/16/2025 1:09 PM EDT Respiratory Rate 16 10/13/2021 4:01 PM EST Oxygen Saturation 96% 06/01/2022 2:46 PM EDT ra@rest Inhaled Oxygen Concentration - - Weight 93 kg (205 lb) 04/30/2025 1:11 PM EDT Height 154.9 cm (5' 1 ) 04/30/2025 1:11 PM EDT Body Mass Index 38.73 04/30/2025 1:11 PM EDT Plan of Treatment Health Maintenance Due Date Last Done Comments Colonoscopy 2017 FIT 2017 Sigmoidoscopy 2017 Virtual Colonography 2017 Pneumococcal Vaccine 50+ (2 of 2 - PCV) 08/30/2019 08/30/2018 COVID-19 Vaccine (4 - season) 2024 09/13/2021, 01/12/2021, 12/15/2020 Cologuard 04/24/2025 04/24/2022, 04/24/2022 Colon Cancer Screening 04/24/2025 Influenza Vaccine (#1) 2025 , 06/25/2023, 06/13/2022, Additional history exists Hemoglobin A1c 10/17/2025 04/16/2025, 1201/2024, 02/19/2024, Additional history exists Kidney Health: uACR 12/22/2025 12/22/2024 Diabetic Eye Exam 02/28/2026 02/29/2024, , 11/28/2022, Additional history exists Annual Wellness Exam 04/16/2026 04/16/2025, 08/04/2014 (Declined) Kidney Health: eGFR 04/16/2026 04/16/2025, 08/28/2024, 02/19/2024, Additional history exists Lipids 04/16/2026 04/16/2025, 1201/2024, 02/19/2024, Additional history exists Breast Cancer Screening [...] Best RMA Medical Devices Implanted Type Area Construction Equipment Mechanic Device Identifier Shelf Expiration Date Model / Serial / Lot Graft Sft Tis 30mm 1-2mm Avance Nrv Ntr Cnct - [id number] Implanted:Qty: 1 on 10/07/2020 by Everette Seth MD at [facility] Left: Finger [employer] 11/21/2022 [id number] / / [id number] Nerve Protector Axog[employer]ard 5mm X 40mm - [id number] Implanted:Qty: 1 on 10/07/2020 by Everette Seth MD at [facility] Left: Finger [employer] 06/14/2022 [id number] / / [id number] Procedures Procedure Name Priority Date/Time Associated Diagnosis [...] 369 x10(3)/mcL 04/16/2025 8:39 PM EDT PREFERRED [facility] MPV 12.3 8.8 - 12.5 fL 04/16/2025 8:39 PM EDT [facility] Blood VENOUS BLOOD / Unknown Venipuncture / Unknown 04/16/2025 1:29 PM EDT 04/16/2025 1:29 PM EDT [facility] HEMATOLOGY ORDERABLES Final Res ult Performing Organization Address [facility] Co de Phone Number [facility] [employer] , [place] [address] * (ABNORMAL) THYROID STIMULATING HORMONE (04/16/2025 1:29 PM EDT) TSH 0.171(L) 0.270 - 4.200 mcIU/mL 04/17/2025 12:01 AM EDT [facility] Blood VENOUS BLOOD / Unknown Venipuncture / Unknown 04/16/2025 1:29 PM EDT 04/16/2025 1:29 PM EDT Narrative [facility] - 04/17/2025 12:01 AM EDT Ingestion of victor m doses of biotin (>5 mg/day) taken within 8 hours of drawing blood sample can interfere with this immunoassay test. [facility] CHEMISTRY ORDERABLES Final Resu lt Performing Organization Address [facility] Co de Phone Number [facility] [address] , [place] [address] * T4, FREE (THYROXINE) (04/16/2025 1:29 PM EDT) Free T4 1.29 0.80 - 1.80 ng/dL 04/17/2025 12:01 AM EDT [facility] Blood VENOUS BLOOD / Unknown Venipuncture / Unknown 04/16/2025 1:29 PM EDT 04/16/2025 1:29 PM EDT Narrative PREFERRED [employer] [facility] - 04/17/2025 12:01 AM EDT Ingestion of victor m doses of biotin (>5 mg/day) taken within 8 hours of drawing blood sample can interfere with this immunoassay test. [facility] Center[facility]ol[facility] DO CHEMISTRY ORDERABLES Final Resu Performing Organization Address [facility] de Phone Number [facility] [employer] [address] , [place] [address] * HEMOGLOBIN A1C (04/16/2025 1:29 PM EDT) Pathologist [facility] Hgb A1C 5.5 4.2 - 5.6 % 04/16/2025 9:00 PM EDT [facility] [employer] [facility] Est. Avg Glucose 111 mg/dL 04/16/2025 9:00 PM EDT [facility] [employer], [facility] Blood VENOUS BLOOD / Unknown Venipuncture / Unknown 04/16/2025 1:29 PM EDT 04/16/2025 1:29 PM EDT Narrative [facility] [employer] [facility] - 04/16/2025 9:00 PM EDT REFERENCE RANGE: Normal: 4.0-5.6% Pre-diabetes: 5.7-6.4% Provisional diagnosis of diabetes: >6.4% Hgb F>10% and anything which shortens red cell survival, such as hemolytic anemia, or unstable hemoglobin variants such as HbSS, HbSC, or HbCC, will lower the HbA1c value associated with a given level of glycemic control. [facility] CHEMISTRY ORDERABLES Final Resu Performing Organization Address [facility] Co de Phone Number [facility] [employer] [facility] [address] , [place] [address] * (ABNORMAL) HEPATIC FUNCTION PANEL (04/16/2025 1:29 PM EDT) Pathologist [facility] Total Protein 6.9 6.4 - 8.3 gm/dL 04/16/2025 11:57 PM EDT [facility] [employer], [facility] Albumin 3.9 3.5 - 5.2 gm/dL 04/16/2025 11:57 PM EDT [facility] [employer] <0.2 0.0 - 0.3 mg/dL 04/16/2025 11:57 PM EDT PREFERRED [facility], [facility] Bili Total 0.3 0.2 - 1.3 mg/dL 04/16/2025 11:57 PM EDT [facility], [facility] AST 15 <=40 U/L 04/16/2025 11:57 PM EDT PREFERRED [facility], [facility] ALT 8 <=41 U/L 04/16/2025 11:57 PM EDT [facility], [facility] Alk Phos 124(H) 36 - 123 U/L 04/16/2025 11:57 PM EDT PREFERRED LAB [facility], [facility] Blood VENOUS BLOOD / Unknown Venipuncture / Unknown 04/16/2025 1:29 PM EDT 04/16/2025 1:29 PM EDT us Marshal Azk DO CHEMISTRY ORDERABLES Final Resu lt PREFERRED LAB [facility], [facility] [address] , [place] [address] * (ABNORMAL) LIPID SCREEN (04/16/2025 1:29 PM EDT) Cholesterol 148 <200 mg/dL 04/16/2025 11:57 PM EDT [facility] [employer], [facility] Comment: < 200 Desirable 200 - 239 Borderline High >= 240 High Triglyceride 173(H) <150 mg/dL 04/16/2025 11:57 PM EDT [facility] [employer], [facility] Comment: < 150 Normal 150 - 199 Borderline High 200 - 499 High >= 500 Very High HDL 33(L) >=40 mg/dL 04/16/2025 11:57 PM EDT [facility] [employer], [facility] Comment: > 60 Optimal 40 - 60 Acceptable < 40 Low LDL Calculated 85 <100 mg/dL 04/16/2025 11:57 PM EDT [facility] [employer], [facility] Comment: < 100 Optimal 100 - 129 [...] 1:29 PM EDT 04/16/2025 1:29 PM EDT [facility] Centerenrique FuchsZak DO CHEMISTRY ORDERABLES Final Resu lt PREFERRED [facility], [facility] [address] [facility] , [place] [address] * (ABNORMAL) BASIC METABOLIC PANEL (04/16/2025 1:29 [...] recommended by the National Kidney Foundation - [place] Society of Nephrology Task Force. Blood VENOUS BLOOD / Unknown Venipuncture / Unknown 04/16/2025 1:29 PM EDT 04/16/2025 1:29 PM EDT us Marshal Zak DO CHEMISTRY ORDERABLES Final Resu lt PREFERRED [facility] [address] [facility] , [place] [address] * MM MAMMO DIGITAL CLARY SCREEN BILAT (03/09/2025 10:17 AM EDT) Anatomical Region Laterality Modality Breast Bilateral Mammography 03/09/2025 10:1 7 AM EDT Impressions 03/10/2025 8:08 AM EDT Negative ([id number]) RECOMMENDATION: Routine Screening Mammogram in 1 Year Bilateral . . COMMENTS: DISCLAIMER *The patient was notified by [employer] or mail of the results for this examination. *The patient's information was entered into a reminder system with a target due date for the next breast imaging, in accordance with the [place] [employer] and the Society of [...] for screening mammogram for malignant neoplasm of [id number] COMPARISON STUDIES: Compared with prior studies the most recent being 03/10/2024 MM MAMMO DIGITAL CLARY SCREEN BILAT at [facility] 07/18/2021 MM MAMMO DIGITAL CLARY SCREEN BILAT at [facility] 07/01/2020 MM MAMMO DIGITAL SCREENING W CAD BILAT at [facility] TISSUE DENSITY: There are scattered areas of fibroglandular density. FINDINGS: No mammographic evidence of malignancy. Procedure Note Mina Thomas MD - 03/10/2025 EXAM: MM MAMMO DIGITAL CLARY SCREEN BILAT EXAM DATE: 03/09/2025 10:17 AM INDICATION: Z12.31-Encounter for screening mammogram for malignantneoplasm of [id number]-JIG-90-CM COMPARISON STUDIES: Compared with prior studies the most recent being 03/10/2024 MM MAMMO DIGITAL CLARY SCREEN BILAT at [facility] 07/18/2021 MM MAMMO DIGITAL CLARY SCREEN BILAT at [facility] 07/01/2020 MM MAMMO DIGITAL SCREENING W CAD BILAT at [facility] TISSUE DENSITY: There are scattered areas of fibroglandular density. FINDINGS: No mammographic evidence of malignancy. IMPRESSION: Negative ([id number]) RECOMMENDATION: Routine Screening Mammogram in 1 Year Bilateral . . COMMENTS: DISCLAIMER *The patient was notified by MyChart or mail of the results for this examination. *The patient's information was entered into a reminder system with atarget due date for the next breast imaging, in accordance with the [place] [employer] and the Society of Breast Imaging recommendations. *Breast Imaging has a false negative rate of 15%. *Any patient with a palpable abnormality, unexplained by breast imaging,should be managed on a clinical basis by the attending physician. [facility] MAMMOGRAPHY ORDERABLES Dari l Result * MICROALBUMIN/CREATININE RATIO URINE (12/22/2024 9:21 AM EDT) Urine Microalb <12.0 mg/L 12/22/2024 3:35 PM EDT PREFERRED LAB [employer], [facility] Urine Creatinine 155.0 mg/dL 12/23/19 25 3:35 PM EDT [facility], [facility] Ur Microalb/Creat 025 3:35 PM EDT [facility], [facility] Comment: Because the albumin level is below the level of detection in this urine specimen, the laboratory is unable to calculate a reliable albumin/creatinine ratio. Microalbuminuria is unlikely if the urine albumin concentration is less than 20- 30 mg/L in a random specimen. Urine STRUCTURE OF URINARY TRACT PROPER / Unknown 12/22/2024 9:21 AM EDT 12/22/2024 9:21 AM EDT Marshal Zak DO URINE ORDERABLES Final Result [facility] [employer] [address] , [place] [address] * DIABETES EYE EXAM (02/29/2024 5:26 PM EDT) Left Diabetic Retinopathy Not Present Present/Not Present [facility] Right Diabetic Retinopathy Not Present Present/Not Present [facility] Provider HEALTH MAINTENANCE Edited Re sult - Final [facility] * COLOGUARD (04/24/2022 8:15 AM EDT) COLOGUARD CLINICAL REPORT Negative Negative [facility] Comment: NEGATIVE TEST RESULT. A negative [...] (Melissa Almaraz al, N Engl J Med 2014;370(14):2765-3931) The normal value (reference range) for this assay is negative. COLOGUARD RE-SCREENING RECOMMENDATION: Periodic colorectal cancer screening is an important part of preventive healthcare for asymptomatic individuals at average risk for colorectal cancer. Following a negative Cologuard result, the [place] Cancer Society and U.S. Multi-Society Task Force screening guidelines recommend a Cologuard re-screening interval of 3 years. References: [place] [employer] Society Guideline for Colorectal Cancer Screening: https://www.cancer.org/cancer/rjaim-sdpvfi-ayvlri/kheuzoxui-cxdrtbbiz-hcgkfhy/ac s-rec ommendations.html.; Daniel DK, Diogo ROJAS, Rica CaldwellK, Colorectal Cancer Screening: Recommendations for Physicians and Patients from the U.S. Multi-Society Task Force on Colorectal Cancer Screening , Am J Gastroenterology 2017; 112:8567-0834. TEST DESCRIPTION: Composite algorithmic analysis of stool [...] Schultz et al, N Engl J Med 2014;370(14):2491-6385.) Cologuard may produce a false negative or false positive result (no colorectal cancer or precancerous polyp present at colonoscopy follow up). A negative Cologuard test result does not guarantee the absence of CRC or advanced adenoma (pre-cancer). The current Cologuard screening interval is every 3 years. ([place] Cancer Society and U.S. Multi-Society Task Force). Cologuard performance data in a 10,000 patient pivotal study using colonoscopy as the reference method can be accessed at the following location: www.[employer].Mashed jobs/results. Additional description of the Cologuard test process, warnings and precautions can be found at www.[employer]. Stool 04/24/2022 8:15 AM EDT 04/25/2022 11:35 PM EDT us Marshal Crespo DO EXACT SCIENCE - ORDERABLES Dari l Result [employer], [facility] [address] [id number], [facility] [employer] [address] [id number] from Last 3 Months or Most Recently Relevant to Health Maintenance Insurance * Guarantor: Cordelia Sr Account Type Relation to Patient Date of Phone Billing Address Personal/Family Self 1970 [address] [place] [address] [facility] [address] [employer] [facility] [employer] * Guarantor: Cordelia Sr Account Type Relation to Patient Date of Phone Billing Address Patient First Personal/Family Self 1970 [address] [place] [address] Advance Directives For more information, please contact: [phone] * Full Code (Latest Code Status on File) Date Activated Date Inactivated Comments 06/05/2017 1:50 PM 06/08/2017 10:07 PM Care Teams Rack Carrier Relationship Specialty Start Date End Date Marshal Crespo DO [address] [place], [place] [address] PCP - General 07/02/10
--- OUTSIDE RECORDS SUMMARY | 2025-05-10 19:38 | XMS_ITS | Encounter Summary ---
Author Organization [facility] [place] [address] Care Team Providers Care Privacy Specialist Name Role Phone ZakMarshal Primary Care Provider [phone] Reason for Visit * Reason Comments Medication Refill Encounter Details Date Type Department Care Team (Late st Contact Info) Description 04/22/2025 Refill [facility] [address] [place] [address] Zak DO Marshal [address] [place] [address] Medication Refill Social History Tobacco [...] Date Recorded PHQ-2 Total Score 0 12/22/2024 [facility] [place] of Occupat ional Health - Occupational Stress [...] documented as of this encounter Care Teams Privacy Specialist Relationship Specialty Start Date End Date Marshal Crespo DO [address] [place] [address] PCP - General 07/02/10 documented as of this encounter
--- OUTSIDE RECORDS SUMMARY | 2025-05-10 19:38 | XMS_ITS | Encounter Summary ---
Author Organization [facility] [place] [address] Care Team Providers Care Bar Back Name Role Phone ZakEarlenrique CASTELLANO Primary Care Provider [phone] Reason for Visit * Reason Comments Medication Refill Encounter Details Date Type Department Care Team (Late st Contact Info) Description 03/31/2025 Refill [facility] [address] [place] [address] Zak DO Marshal [address] [place] [address] Medication Refill Social History Tobacco Use Types Packs/Day Years Used Date Smoking Tobacco: Every Day Cigarettes 0.5 16.8 Started: 05/26/2020 Smokeless Tobacco: Never Comments:orig started [...] Date Recorded PHQ-2 Total Score 0 12/22/2024 [facility] [place] of Occupat ional Health - Occupational Stress [...] documented as of this encounter Care Teams Bar Back Relationship Specialty Start Date End Date Marshal Crespo DO [address] [place] [address] PCP - General 07/02/10 documented as of this encounter
--- OUTSIDE RECORDS SUMMARY | 2025-05-10 19:38 | XMS_ITS | Encounter Summary ---
Author Organization [facility] [place] [address] Care Team Providers Care Protector Plate Attacher Name Role Phone Marshal Crespo DO Primary Care Provider [phone] Encounter Details Date Type Department Care Team (Late st Contact Info) Description 04/17/2025 Results Follow-Up [facility] [address] [place] [address] ZakMarshal piña, [address] [place], [place] [id number] LIPID SCREEN, THYROID STIMULATING HORMONE, T4, FREE [...] Date Recorded PHQ-2 Total Score 0 12/22/2024 [facility] [place] of Occupat ional Health - Occupational Stress [...] on filedocumented in this encounter Care Teams Protector Plate Attacher Relationship Specialty Start Date End Date Marshal Crespo DO [address] [place] [address] PCP - General 07/02/10 documented as of this encounter
--- NOTE | 2025-05-10 19:39 | HMH.EDGENADL ---
Discharge Plan Disposition Patient Disposition: Home, Self-Care Condition: Good Prescriptions Prescriptions: No Action doxepin 10 mg capsule 10 mg PO HS Patient Comments: TAKE 1 CAPSULE BY MOUTH NIGHTLY FOR SLEEP. Rexulti 3 mg tablet 3 mg PO Patient Comments: TAKE 1 TABLET BY MOUTH ONCE DAILY. polyethylene glycol 3350 [Miralax] 17 gram/dose powder 17 g PO DAILY Qty: 510 11RF Citrucel Sugar Free Powder 1 tbsp PO DAILY Qty: 1191 11RF prazosin 1 mg capsule 1 mg PO DAILY meloxicam 15 mg tablet 15 mg PO DAILY omeprazole 40 mg capsule,delayed release(DR/EC) 40 mg PO DAILY aspirin 81 mg tablet,delayed release (DR/EC) 81 mg PO DAILY levothyroxine 75 mcg tablet 75 mcg PO DAILY dicyclomine 20 mg tablet 20 mg PO ONCE folic acid 1 mg tablet 1 mg PO DAILY furosemide 20 mg tablet 20 mg PO DAILY PRN (Reason: Hypertension) Patient Comments: TAKE 1 TABLET BY MOUTH NEEDED. desvenlafaxine succinate 100 mg tablet extended release 24 hr 100 mg PO DAILY Emgality Syringe 120 mg/mL syringe 120 mg SQ QMONTH Patient Comments: INJECT 1 ML UNDER THE SKIN EVERY 30 DAYS. varenicline tartrate 1 mg tablet 1 mg PO ONCE loratadine 10 mg tablet 10 mg PO DAILY Patient Comments: TAKE 1 TABLET BY MOUTH DAILY. pravastatin 40 mg tablet 40 mg PO HS Patient Comments: TAKE 1 TABLET BY MOUTH EVERY EVENING. buspirone 15 mg tablet 15 mg PO TID PRN budesonide-formoterol [Symbicort] 160-4.5 mcg/actuation HFA aerosol inhaler 2 puff inhalation BID 90 Days Qty: 10.2 2RF albuterol sulfate [Ventolin HFA] 90 mcg/actuation HFA aerosol inhaler 2 puff inhalation Q6H PRN Patient Comments: INHALE 2 PUFFS INTO THE LUNGS EVERY 6 HOURS NEEDED FOR WHEEZING. hydroxyzine pamoate 50 mg capsule 50 mg PO HS Patient Comments: TAKE 1 TO 2 CAPSULES BY MOUTH NIGHTLY FOR SLEEP. amlodipine 2.5 mg tablet 2.5 mg PO DAILY Qty: 30 5RF sertraline [Zoloft] 100 MG tablet 100 mg PO DAILY gabapentin 800 MG tablet 800 mg PO DAILY promethazine 25 MG tablet 25 mg PO Q8HP PRN (Reason: Nausea And Vomiting) lidocaine 4 % cream 1 applic topical BID PRN (Reason: pain) Qty: 15 0RF Rx Instructions: Apply pea-sized amount to the affected area once every 12 hours if needed for muscle pain and spasm. Be sure to wash the area before each application. Referrals Follow up/Referrals: Marshal Crespo [Primary Care Provider, Medical] - See instructions Clinical Impressions Clinical Impression: Headache Print Language Print Language: Belarusian Discharge ED Provider: Mónica Grimes General Adult HPI <Triny Mccauley - Last Filed: 05/10/25 20:28> General Chief complaint: Headache Stated complaint: Migraine Time Seen by Provider: 05/10/25 19:39 History of Present Illness HPI narrative: 54-year-old female with a history of migraines presents to the emergency department with complaints of migraine since earlier today. She reports she has taken all of her routine migraine medications without relief of symptoms. Reports the symptoms are similar to her previous migraines. She denies any recent head trauma. Related Data Home Medications ?Medication ?Instructions ?Recorded ?Confirmed gabapentin 800 mg tablet 800 mg PO DAILY Diabetes 10/03/17 04/22/25 promethazine 25 mg tablet 25 mg PO Q8HP PRN Nausea And 10/03/17 04/22/25 Vomiting sertraline 100 mg tablet (Zoloft) 100 mg PO DAILY Depression 10/03/17 04/22/25 aspirin 81 mg tablet,delayed 81 mg PO DAILY 02/26/24 04/22/25 release desvenlafaxine succinate 100 mg 100 mg PO DAILY 02/26/24 04/22/25 tablet,extended release 24 hr dicyclomine 20 mg tablet 20 mg PO ONCE 02/26/24 04/22/25 folic acid 1 mg tablet 1 mg PO DAILY 02/26/24 04/22/25 furosemide 20 mg tablet 20 mg PO DAILY PRN Hypertension 02/26/24 04/22/25 galcanezumab-gnlm 120 mg/mL 120 mg SQ QMONTH 02/26/24 04/22/25 subcutaneous syringe (Emgality) levothyroxine 75 mcg tablet 75 mcg PO DAILY 02/26/24 04/22/25 meloxicam 15 mg tablet 15 mg PO DAILY 02/26/24 04/22/25 omeprazole 40 mg capsule,delayed 40 mg PO DAILY 02/26/24 04/22/25 release prazosin 1 mg capsule 1 mg PO DAILY 02/26/24 04/22/25 loratadine 10 mg tablet 10 mg PO DAILY 03/24/24 04/22/25 pravastatin 40 mg tablet 40 mg PO HS 03/24/24 04/22/25 varenicline tartrate 1 mg tablet 1 mg PO ONCE 03/24/24 04/22/25 doxepin 10 mg capsule 10 mg PO HS 04/28/24 04/22/25 albuterol sulfate 90 mcg/actuation 2 puff inhalation Q6H PRN 07/24/24 04/22/25 aerosol inhaler (Ventolin HFA) buspirone 15 mg tablet 15 mg PO TID PRN 07/29/24 04/22/25 brexpiprazole 3 mg tablet (Rexulti) 3 mg PO 09/09/24 04/22/25 hydroxyzine pamoate 50 mg capsule 50 mg PO HS 03/05/25 04/22/25 Previous Rx's ?Medication ?Instructions ?Recorded budesonide-formoterol HFA 160 2 puff inhalation BID 90 days 08/05/24 mcg-4.5 mcg/actuation aerosol #10.2 grams inhaler (Symbicort) amlodipine 2.5 mg tablet 2.5 mg PO DAILY #30 tabs 03/13/25 methylcellulose (laxative) 1 tbsp PO DAILY #1,191 grams 04/22/25 (Citrucel Sugar Free oral powder) polyethylene glycol 3350 17 17 g PO DAILY #510 grams 04/22/25 gram/dose oral powder (Miralax) lidocaine 4 % topical cream 1 applic topical BID PRN pain #15 04/26/25 grams Allergies Allergy/AdvReac Type Severity Reaction Status Date / Time codeine (CODEINE) Allergy Unknown Verified 04/22/25 11:44 adhesive Allergy Verified 04/22/25 11:44 hydromorphone Allergy Verified 04/22/25 11:44 simvastatin Allergy Verified 04/22/25 11:44 PFS <Triny Mccauley - Last Filed: 05/10/25 20:28> [facility] Disclaimer: The information contained in this section may have been updated after the patient was seen, as this information can be updated by other users. Medical History CAD (coronary artery disease) Dyspnea on exertion Smoking greater than 30 pack years ALVINO (obstructive sleep apnea) Right ventricular dilation IBS (irritable bowel syndrome) COPD (chronic obstructive pulmonary disease) Asthma Family history of CHF (congestive heart failure) Abnormal electrocardiogram [ECG] [EKG] Surgical History History of lumpectomy Hx of appendectomy History of cholecystectomy H/O: hysterectomy Family History Other Asthma Cancer Coronary artery disease Diabetes Heart attack Hyperlipidemia Hypertension Stroke Substance abuse Thyroid disorder Social History (Updated 04/22/25 @ 11:51 by Latha Aldana MA) Smoking Status: Current every day smoker tobacco type: cigarettes packs per day: 1 pack-years: 35 alcohol intake: former substance use type: former substance user and painkillers current occupational status: disabled Travel in the last 8 weeks?: None household members: family housing: house marital status: number of children: 6 Have you lived/traveled outside US in past 30 days?: No Contact w/someone who lives/traveled outside US past 30 days?: No Exposure to someone with infectious disease in past 14 days?: No Do you have a fever (greater than 100.4 F or 38 C)?: No Have you tested positive for COVID-19?: No Exposed to someone with COVID-19 in past 14 days?: No Do you have a sore throat?: No Do you have a cough?: No Do you have any weakness?: No Do you have any diarrhea?: No Are you experiencing any unusual bleeding?: No Do you have any muscle aches/pain?: No Do you have any abdominal pain?: No Are you experiencing loss of taste or smell?: No Other Medical History Have you received the Flu Vaccine for this season: No Have you received the Pneumonia Vaccine: No <Triny Mccauley - Last Filed: 05/10/25 20:28> ROS Obtained: Yes All systems reviewed & no additional complaints except as documented Physical Exam <Triny Mccauley - Last Filed: 05/10/25 20:28> Narrative Physical exam: Unremarkable for acute findings. Patient is alert and oriented x 4 with PERRLA and intact extraocular movements. She has 5 out of 5 strength in all extremities as well as tact sensation. General General appearance: alert Respiratory Respiratory exam: Present normal lung sounds bilaterally Cardiovascular Cardiovascular exam: Present regular rate Neurological Exam Neurological exam: Present alert Medical Decision Making <Triny Mccauley - Last Filed: 05/10/25 20:28> Medical Records Screening: Per USPSTF and CDC recommendations, given the prevalence of disease in our region, it is our hospital?s policy to screen for HIV and viral Hepatitis for all patients aged 18 and over and those with ongoing risk factors. [place] Inquiry Pt receiving controlled substance: No Vital Signs: 05/10/25 19:32 05/10/25 19:32 05/10/25 19:38 Temperature 97.4 F L Temperature Source Oral Pulse Rate 78 Pulse Rate [Left] 78 Respiratory Rate 16 Blood Pressure 132/66 Blood Pressure [Right Arm] 132/66 Blood Pressure Mean 81 Blood Pressure Mean [Right Arm] 88 Blood Pressure Source Blood Pressure Source [Right Arm] Automatic Cuff Blood Pressure Position Blood Pressure Position [Right Arm] Sitting 02 Sat by Pulse Oximetry 98 96 Oxygen Delivery Method Room Air 05/10/25 19:45 05/10/25 20:00 05/10/25 20:01 Temperature Temperature Source Pulse Rate 73 70 Pulse Rate [Left] Respiratory Rate Blood Pressure 113/70 Blood Pressure [Right Arm] Blood Pressure Mean 87 Blood Pressure Mean [Right Arm] Blood Pressure Source Blood Pressure Source [Right Arm] Blood Pressure Position Blood Pressure Position [Right Arm] 02 Sat by Pulse Oximetry 95 97 Oxygen Delivery Method 05/10/25 20:01 05/10/25 20:15 05/10/25 20:30 Temperature Temperature Source Pulse Rate 67 74 75 Pulse Rate [Left] Respiratory Rate Blood Pressure Blood Pressure [Right Arm] Blood Pressure Mean Blood Pressure Mean [Right Arm] Blood Pressure Source Blood Pressure Source [Right Arm] Blood Pressure Position Blood Pressure Position [Right Arm] 02 Sat by Pulse Oximetry 96 95 96 Oxygen Delivery Method 05/10/25 20:35 Temperature 97.4 F L Temperature Source Oral Pulse Rate 75 Pulse Rate [Left] Respiratory Rate 18 Blood Pressure 113/70 Blood Pressure [Right Arm] Blood Pressure Mean Blood Pressure Mean [Right Arm] Blood Pressure Source Automatic Cuff Blood Pressure Source [Right Arm] Blood Pressure Position Sitting Blood Pressure Position [Right Arm] 02 Sat by Pulse Oximetry Oxygen Delivery Method Lab Data Lab Results 05/10/25 19:36: HCV Ab JASON w/Rflx PCR Qn Negative, HIV Ag/Ab Combo Qual Negative Orders (Tests/Meds): ED MEDICATIONS Discontinued Medications Generic Name Dose Route Start Last Admin Trade Name Jamal PRN Reason Stop Dose Admin Ketorolac Tromethamine 15 mg 05/10/25 19:51 05/10/25 19:57 Ketorolac 30mg/Ml Vial IV 05/10/25 19:52 15 mg ONCE ONE Administration ORDERS Category Date Time Status HIV Combo Stat Lab 05/10/25 19:36 Completed Hepatitis C Ab Qual. W/ RFX Stat Lab 05/10/25 19:36 Completed Medical Decision Narrative: 54-year-old female presents emergency department complaints of headache. She states she has a history of migraines and reports this headache is similar to previous. She denies any recent head trauma. She also states that she has taken all of her medications for pain control without relief of symptoms. She is requesting a Toradol injection at this time. Physical exam was unremarkable for any acute findings. I offered her a migraine cocktail that includes Toradol, normal saline bolus, Reglan ordered patient declined stating that she would just like to get Toradol at this time. I have gone to bedside to reevaluate patient and she states that her headache has improved and that she like to go home now and remains neurologically intact. Advised patient to continue with her migraine medications. I also recommended that she increase her fluid intake and rest for the next several days. Ducted her to return to the emergency department any new or worsening symptoms specifically any focal neurological deficits etc. slurred speech, facial droop or unilateral weakness otherwise she may follow-up with her PCP as needed. Patient is agreeable to plan of care <Mónica Grimes MD - Last Filed: 05/10/25 23:49> Vital Signs: 05/10/25 19:32 05/10/25 19:32 05/10/25 19:38 Temperature 97.4 F L Temperature Source Oral Pulse Rate 78 Pulse Rate [Left] 78 Respiratory Rate 16 Blood Pressure 132/66 Blood Pressure [Right Arm] 132/66 Blood Pressure Mean 81 Blood Pressure Mean [Right Arm] 88 Blood Pressure Source Blood Pressure Source [Right Arm] Automatic Cuff Blood Pressure Position Blood Pressure Position [Right Arm] Sitting 02 Sat by Pulse Oximetry 98 96 Oxygen Delivery Method Room Air 05/10/25 19:45 05/10/25 20:00 05/10/25 20:01 Temperature Temperature Source Pulse Rate 73 70 Pulse Rate [Left] Respiratory Rate Blood Pressure 113/70 Blood Pressure [Right Arm] Blood Pressure Mean 87 Blood Pressure Mean [Right Arm] Blood Pressure Source Blood Pressure Source [Right Arm] Blood Pressure Position Blood Pressure Position [Right Arm] 02 Sat by Pulse Oximetry 95 97 Oxygen Delivery Method 05/10/25 20:01 05/10/25 20:15 05/10/25 20:30 Temperature Temperature Source Pulse Rate 67 74 75 Pulse Rate [Left] Respiratory Rate Blood Pressure Blood Pressure [Right Arm] Blood Pressure Mean Blood Pressure Mean [Right Arm] Blood Pressure Source Blood Pressure Source [Right Arm] Blood Pressure Position Blood Pressure Position [Right Arm] 02 Sat by Pulse Oximetry 96 95 96 Oxygen Delivery Method 05/10/25 20:35 Temperature 97.4 F L Temperature Source Oral Pulse Rate 75 Pulse Rate [Left] Respiratory Rate 18 Blood Pressure 113/70 Blood Pressure [Right Arm] Blood Pressure Mean Blood Pressure Mean [Right Arm] Blood Pressure Source Automatic Cuff Blood Pressure Source [Right Arm] Blood Pressure Position Sitting Blood Pressure Position [Right Arm] 02 Sat by Pulse Oximetry Oxygen Delivery Method Lab Data Lab Results 05/10/25 19:36: HCV Ab JASON w/Rflx PCR Qn Negative, HIV Ag/Ab Combo Qual Negative Orders (Tests/Meds): ED MEDICATIONS Discontinued Medications Generic Name Dose Route Start Last Admin Trade Name Freq PRN Reason Stop Dose Admin Ketorolac Tromethamine 15 mg 05/10/25 19:51 05/10/25 19:57 Ketorolac 30mg/Ml Vial IV 05/10/25 19:52 15 mg ONCE ONE Administration ORDERS Category Date Time Status HIV Combo Stat Lab 05/10/25 19:36 Completed Hepatitis C Ab Qual. W/ RFX Stat Lab 05/10/25 19:36 Completed Medical Decision Narrative: 54-year-old female presents emergency department complaints of headache. She states she has a history of migraines and reports this headache is similar to previous. She denies any recent head trauma. She also states that she has taken all of her medications for pain control without relief of symptoms. She is requesting a Toradol injection at this time. Physical exam was unremarkable for any acute findings. I offered her a migraine cocktail that includes Toradol, normal saline bolus, Reglan ordered patient declined stating that she would just like to get Toradol at this time. I have gone to bedside to reevaluate patient and she states that her headache has improved and that she like to go home now and remains neurologically intact. Advised patient to continue with her migraine medications. I also recommended that she increase her fluid intake and rest for the next several days. Ducted her to return to the emergency department any new or worsening symptoms specifically any focal neurological deficits etc. slurred speech, facial droop or unilateral weakness otherwise she may follow-up with her PCP as needed. Patient is agreeable to plan of care I was consulted by the MARGARITA, and we discussed the complexity of problems being addressed. I approved the treatment and management plan for this patient's care in the emergency department, thus performing a substantial portion of the medical decision making. Mónica Grimes MD Critical Care <Triny Mccauley - Last Filed: 05/10/25 20:28> Critical Care Time Critical Care Time: No
[2025-05-10] MEDS: KETOROLAC 30MG/ML VIAL 15 MG IV (19:57)
[2025-05-10 20:55] LABS: Hepatitis C Ab Qual. W/ RFX NEGATIVE (Negative)
== END 2025-05-10 20:37 | disposition home or self-care (01) ==
PROVIDERS: Emergency Provider Student in an Organized Health Care Education/Training Program; PCP Family Medicine
DX: R51.9 Headache, unspecified (principal); F17.210 Nicotine dependence, cigarettes, uncomplicated
CPT/HCPCS: 86803; 87389; 96374; 99284; J1885

== ENCOUNTER 2025-06-15 08:40 | Day surgery (SDC) | payer MEDICAID, SELFPAY ==
--- NOTE | 2025-06-12 13:27 | EXP.HP ---
History of Present Illness *Admission Date: 06/15/25 *History of present illness: Mrs. Sr is a 54-year-old female who is here for diagnostic EGD secondary to dysphagia, odynophagia and persistent heartburn on omeprazole. The patient did have an EGD 2 to 3 years ago at [facility] and required dilation at that time. She does have some chronic constipation. She did have a negative Cologuard about a year ago. The examination is deemed medically necessary for diagnostic EGD. The patient has been seen, interviewed and examined prior to the procedure by both myself and the anesthesia provider. [facility] Disclaimer: The information contained in this section may have been updated after the patient was seen, as this information can be updated by other users. Medical History CAD (coronary artery disease) Dyspnea on exertion Smoking greater than 30 pack years ALVINO (obstructive sleep apnea) Right ventricular dilation IBS (irritable bowel syndrome) COPD (chronic obstructive pulmonary disease) Asthma Family history of CHF (congestive heart failure) Abnormal electrocardiogram [ECG] [EKG] Surgical History History of lumpectomy Hx of appendectomy History of cholecystectomy H/O: hysterectomy Family History Other Asthma Cancer Coronary artery disease Diabetes Heart attack Hyperlipidemia Hypertension Stroke Substance abuse Thyroid disorder Social History Smoking Status: Current every day smoker tobacco type: cigarettes packs per day: 1 pack-years: 35 alcohol intake: never substance use type: former substance user and painkillers current occupational status: disabled Travel in the last 8 weeks?: None household members: family housing: house marital status: number of children: 6 Have you lived/traveled outside US in past 30 days?: No Contact w/someone who lives/traveled outside US past 30 days?: No Exposure to someone with infectious disease in past 14 days?: No Do you have a fever (greater than 100.4 F or 38 C)?: No Have you tested positive for COVID-19?: No Exposed to someone with COVID-19 in past 14 days?: No Do you have a sore throat?: No Do you have a cough?: No Do you have any weakness?: No Do you have any diarrhea?: No Are you experiencing any unusual bleeding?: No Do you have any muscle aches/pain?: No Do you have any abdominal pain?: No Are you experiencing loss of taste or smell?: No Other Medical History Have you received the Flu Vaccine for this season: No Have you received the Pneumonia Vaccine: No Review of Systems Review of Systems Review of systems (narrative): Negative *Cardiovascular Comments: Negative *Gastrointestinal Comments: Negative *Genitourinary Comments: Negative *Musculoskeletal Comments: Negative *Neurologic Comments: Negative Meds Home Medications and Allergies Home Medications ?Medication ?Instructions ?Recorded ?Confirmed ?Type gabapentin 800 mg tablet 800 mg PO DAILY Diabetes 10/03/17 06/09/25 History promethazine 25 mg tablet 25 mg PO Q8HP PRN Nausea And 10/03/17 06/09/25 History Vomiting sertraline 100 mg tablet (Zoloft) 100 mg PO DAILY Depression 10/03/17 06/09/25 History aspirin 81 mg tablet,delayed 81 mg PO DAILY 02/26/24 06/09/25 History release desvenlafaxine succinate 100 mg 100 mg PO DAILY 02/26/24 06/09/25 History tablet,extended release 24 hr dicyclomine 20 mg tablet 20 mg PO ONCE 02/26/24 06/09/25 History furosemide 20 mg tablet 20 mg PO DAILY PRN Hypertension 02/26/24 06/09/25 History galcanezumab-gnlm 120 mg/mL 120 mg SQ QMONTH 02/26/24 06/09/25 History subcutaneous syringe (Emgality) levothyroxine 75 mcg tablet 75 mcg PO DAILY 02/26/24 06/09/25 History meloxicam 15 mg tablet 15 mg PO DAILY 02/26/24 06/09/25 History omeprazole 40 mg capsule,delayed 40 mg PO DAILY 02/26/24 06/09/25 History release prazosin 1 mg capsule 1 mg PO DAILY 02/26/24 06/09/25 History loratadine 10 mg tablet 10 mg PO DAILY 03/24/24 06/09/25 History pravastatin 40 mg tablet 40 mg PO HS 03/24/24 06/09/25 History varenicline tartrate 1 mg tablet 1 mg PO ONCE 03/24/24 06/09/25 History doxepin 10 mg capsule 10 mg PO HS 04/28/24 06/09/25 History albuterol sulfate 90 mcg/actuation 2 puff inhalation Q6H PRN . 07/24/24 06/09/25 History aerosol inhaler (Ventolin HFA) buspirone 15 mg tablet 15 mg PO TID PRN . 07/29/24 06/09/25 History budesonide-formoterol HFA 160 2 puff inhalation BID 90 days 08/05/24 06/09/25 Rx mcg-4.5 mcg/actuation aerosol #10.2 grams inhaler (Symbicort) brexpiprazole 3 mg tablet (Rexulti) 3 mg PO DAILY 09/09/24 06/09/25 History hydroxyzine pamoate 50 mg capsule 50 mg PO HS 03/05/25 06/09/25 History amlodipine 2.5 mg tablet 2.5 mg PO DAILY #30 tabs 03/13/25 06/09/25 Rx methylcellulose (laxative) 1 tbsp PO DAILY #1,191 grams 04/22/25 06/09/25 Rx (Citrucel Sugar Free oral powder) polyethylene glycol 3350 17 17 g PO DAILY #510 grams 04/22/25 06/09/25 Rx gram/dose oral powder (Miralax) erenumab-aooe 140 mg/mL 140 mg SQ QMONTH 06/04/25 06/09/25 History subcutaneous auto-injector (Aimovig Autoinjector) mirtazapine 7.5 mg tablet 7.5 mg PO HS 06/04/25 06/09/25 History naproxen 500 mg tablet 500 mg PO BID PRN . 06/04/25 06/09/25 History sulfamethoxazole 400 1 tab PO BID 06/04/25 06/09/25 History mg-trimethoprim 80 mg tablet New Prescriptions to Start Prescriptions: Allergies Allergy/AdvReac Type Severity Reaction Status Date / Time codeine (CODEINE) Allergy Unknown Rash Verified 06/15/25 09:07 adhesive Allergy burn skin Verified 06/15/25 09:07 hydromorphone Allergy Unknown Verified 06/15/25 09:07 allergy reaction simvastatin Allergy Rash Verified 06/15/25 09:07 Exam *Routine HEENT Exam Head: Present normocephalic Eye: Present EOMI and PERRL ENT: Present mucous membranes moist *Routine Neck Exam Neck: Present supple *Routine Respiratory Exam Respiratory: Present CTA bilaterally *Routine Cardiovascular Exam Cardiovascular: Present RRR *Routine Abdominal Exam Abdominal: Present soft and normoactive bowel sounds; Absent tenderness *Routine Rectal Exam Rectal:: deferred *Routine Genitalia Exam Genitalia:: deferred *Routine Extremities Exam Extremities: Absent cyanosis, clubbing or edema *Routine Skin Exam Skin: Present warm; Absent rash *Routine Neurological Exam Neurological: Present alert and oriented X3 Assessment and Plan *Assessment and plan (1) Dysphagia: Status: Acute Category: Medical Code(s): R13.10 - Dysphagia, unspecified (2) Chronic GERD: Status: Acute Category: Medical Code(s): K21.9 - Gastro-esophageal reflux disease without esophagitis (3) Heartburn: Status: Acute Category: Medical Code(s): R12 - Heartburn (4) Odynophagia: Status: Acute Category: Medical Code(s): R13.10 - Dysphagia, unspecified Plan A/P: 1. Dysphagia/odynophagia with persistent heartburn is the preprocedural diagnosis. The patient will be anesthetized/sedated using MAC sedation. The patient has been seen and examined. Cardiac and lung assessment prior to the examination is stable. Proceed with planned diagnostic EGD.
--- NOTE | 2025-06-15 07:17 | P.PCN_ITS ---
[facility] Procedure Note Date: 06/15/25 Time: 10:15 Procedure Note:: Upper Endoscopy Procedure Report: Esophagogastroduodenoscopy with cold biopsies and TTS balloon dilation Endoscopost: Jeevan Lake II, MD Referring Physician: Marshal Crespo DO, [address] [place] [address] Date of Procedure: June 15, 2025 Equipment: Olympus GIF-1100 standard upper endoscope Sedation: MAC sedation Indications: Mrs. Sr is a 54-year-old female who is here for diagnostic EGD secondary to dysphagia, odynophagia and persistent heartburn on omeprazole. The patient does report bloating, belching, nausea and early satiety. She does have some dyspepsia with epigastric discomfort. She reports some globus sensation. The patient did have an EGD 2 to 3 years ago at [facility] and required dilation at that time. She does have some chronic constipation. She has taken MiraLAX and Metamucil but does not take this daily or consistently. She did have a negative Cologuard about a year ago. The examination is deemed medically necessary for diagnostic EGD. Procedure: Prior to the procedure, a history and physical exam was performed, and patient's medications and allergies were reviewed. The risks, benefits and alternatives of the sedation and procedure were discussed with the patient. All questions were answered and informed consent was obtained. The patient was brought to the procedure room. Patient identification and proposed procedure were verified by the physician and the nurse. The patient was placed in a left lateral decubitus position and the scope was passed under direct vision. Throughout the procedure, the patient's blood pressure, pulse, and oxygen saturations were monitored continuously. The upper GI endoscopy was accomplished without difficulty. The patient tolerated the procedure well. Findings: The scope was passed directly into the upper esophagus and advanced to the third portion of the duodenum. The post bulbar duodenum and duodenal bulb were normal with normal mucosa and conniventes. A cold biopsy was taken from the second portion of the duodenum for the disaccharidase assay. The scope was withdrawn through a normal duodenal bulb and pylorus into the stomach. There was moderate bile reflux with mild linear reactive gastropathy of the antrum. The body and fundus of the stomach were normal. Upon retroflexion there was a small 2 cm hiatal hernia. Cold biopsies were taken from the antrum. The scope was then withdrawn into the esophagus. There was no evidence of reflux esophagitis or Clifton's. There were strong tertiary contractions and evidence of moderate esophageal dysmotility. There was no rings, strictures, webs, corrugation or furrowing. There was no proximal esophageal inlet patch. The entire esophagus was dilated to 60 Stateless/20 mm with a TTS hydrostatic balloon. There was mild resistance at the cricopharyngeus. The remainder of the esophageal mucosa was normal. Impression: 1. Cricopharyngeal spasm status post dilation to 20 mm 2. Nonerosive GERD with moderate esophageal dysmotility and small 2 cm hiatal hernia 3. Bile reflux with mild linear reactive gastropathy of antrum Plan: I will follow-up the biopsies and discuss the findings with the patient and family. She does have functional dyspepsia and GERD with esophageal dysmotility. We will discuss treatment options.
[2025-06-15 09:04] VITALS: BMI 38.5
[2025-06-15] MEDS: LACTATED RINGERS 1000ML 1,000 ML 50 ML IV (09:06)
[2025-06-15 09:08] VITALS: BP 116/78; PULSE 68; RESP 18; TEMP 36.4; O2SAT 95
[2025-06-15 09:20] LABS: POC Glucose,Bedside 91 gm/dL (70-110)
--- NOTE | 2025-06-15 09:31 | P.PNANES_ITS ---
[facility] Disclaimer: The information contained in this section may have been updated after the patient was seen, as this information can be updated by other users. Medical History CAD (coronary artery disease) Dyspnea on exertion Smoking greater than 30 pack years ALVINO (obstructive sleep apnea) Right ventricular dilation IBS (irritable bowel syndrome) COPD (chronic obstructive pulmonary disease) Asthma Family history of CHF (congestive heart failure) Abnormal electrocardiogram [ECG] [EKG] Surgical History History of lumpectomy Hx of appendectomy History of cholecystectomy H/O: hysterectomy Family History Other Asthma Cancer Coronary artery disease Diabetes Heart attack Hyperlipidemia Hypertension Stroke Substance abuse Thyroid disorder Social History Smoking Status: Current every day smoker tobacco type: cigarettes packs per day: 1 pack-years: 35 alcohol intake: never substance use type: former substance user and painkillers current occupational status: disabled Travel in the last 8 weeks?: None household members: family housing: house marital status: number of children: 6 Have you lived/traveled outside [place] in past 30 days?: No Contact w/someone who lives/traveled outside [place] past 30 days?: No Exposure to someone with infectious disease in past 14 days?: No Do you have a fever (greater than 100.4 F or 38 C)?: No Have you tested positive for COVID-19?: No Exposed to someone with COVID-19 in past 14 days?: No Do you have a sore throat?: No Do you have a cough?: No Do you have any weakness?: No Do you have any diarrhea?: No Are you experiencing any unusual bleeding?: No Do you have any muscle aches/pain?: No Do you have any abdominal pain?: No Are you experiencing loss of taste or smell?: No [facility] Anesthesia Checklist Patient Identification Patient Identification: Arm Band and Family Structural Data Admitted From: Home Planned Operative Procedure/s: EGD Consent for Planned Operative Procedure(s) Verified: Yes Verified Documents: Surgical Consent and History and Physical NPO Status Verified Time NPO: 00:00 Additional verifications Patient : No Anesthesia Reactions: No Hx Blood Transfusions: No Blood Transfusion Reaction: No Cephalosporin Allergy: No Previous Colonoscopy: Yes Airway Assessment Mallampati Score:: Class II C-Spine Mobility Assessed: Yes TMJ Mobility Assessed: Yes Dentition: Edentulous Neurological Assessment Level of Consciousness: Awake, Alert, Appropriate and Follows Commands Hx Seizures: Yes Numbness or tingling in extremities: No Anesthesia Plan Anesthesia Risk discussed: Yes ASA Class: II Anesthesia Type: MAC Preoperative Comments Pre-Operative Comments: Enlarged Right side of heart. Asthma. Hypertension. NIDDM takes no Rx.
[2025-06-15 10:18] VITALS: BP 86/51; PULSE 67; RESP 16; TEMP 36.3; O2SAT 97
[2025-06-15 10:28] VITALS: BP 103/71; PULSE 72; RESP 18; TEMP 36.3; O2SAT 95
[2025-06-15 10:38] VITALS: BP 124/70; PULSE 70; RESP 18; TEMP 36.3; O2SAT 96
[2025-06-15 10:48] VITALS: BP 148/93; PULSE 67; RESP 16; TEMP 36.3; O2SAT 96
== END 2025-06-15 10:48 | disposition home or self-care (01) ==
PROVIDERS: PCP Family Medicine; Visit Provider Internal Medicine Gastroenterology
PROC: 0DJ08ZZ Inspection of Upper Intestinal Tract, Via Natural or Artificial Opening Endoscopic (ICD-10-PCS; CPT 43239; principal; 2025-06-15 10:30)
DX: K44.9 Diaphragmatic hernia without obstruction or gangrene (principal); K22.4 Dyskinesia of esophagus; K59.09 Other constipation; K31.89 Other diseases of stomach and duodenum; K21.9 Gastro-esophageal reflux disease without esophagitis; F17.210 Nicotine dependence, cigarettes, uncomplicated; J44.9 Chronic obstructive pulmonary disease, unspecified; I25.10 Atherosclerotic heart disease of native coronary artery without angina pectoris; Z88.5 Allergy status to narcotic agent; Z79.82 Long term (current) use of aspirin; Z88.8 Allergy status to other drugs, medicaments and biological substances
CPT/HCPCS: 43239; 43249; 82657; 82962; C1726; J2003; J2704; J7120